=== PATIENT | male | born 1955 | race Caucasian/White ===

== ENCOUNTER 2024-01-20 11:02 | Outpatient (OUT) | payer MEDICARE, OTHER, SELFPAY | END 2024-01-20 11:03 | disposition home or self-care (01) | LOC: LAB 11:07 | PROVIDERS: PCP Internal Medicine; Visit Provider Urology | DX: R97.20 Elevated prostate specific antigen [PSA] (principal) | CPT/HCPCS: 36415; 84153 ==

== ENCOUNTER 2024-07-02 10:45 | Outpatient (OUT) | payer MEDICARE, OTHER, SELFPAY | END 2024-07-02 10:46 | disposition home or self-care (01) | LOC: PST 10:45 | PROVIDERS: PCP Internal Medicine; Visit Provider Urology | DX: Z01.818 Encounter for other preprocedural examination (principal); N40.1 Benign prostatic hyperplasia with lower urinary tract symptoms; R39.89 Other symptoms and signs involving the genitourinary system ==

== ENCOUNTER 2024-07-05 07:39 | Day surgery (SDC) | payer MEDICARE, OTHER, SELFPAY ==
--- OUTSIDE RECORDS SUMMARY | 2024-07-05 07:43 | XMS_ITS | CCD ---
Author Organization [facility] Care Team Providers Care Radiation Protection Specialist Name Role Phone Unavailable Primary Care Provider Donna YEH, DR SWARTZ Primary Care Unavailable GILL, DR SWARTZ Admitting Unavailable GILL, DR SWARTZ Attending Unavailable GILL, DR SWARTZ Consulting Unavailable ZIEBER, DR CADEN Dash Consulting Unavailable GILL, DR SWARTZ Consulting Unavailable GILL, DR SWARTZ Primary Care Unavailable GILL, DR SWARTZ Admitting Unavailable GILL, DR SWARTZ Attending Unavailable DEMI, DR MATT Hayden Consulting Unavailable GILL, DR SWARTZ Primary Care Unavailable GILL, DR SWARTZ Admitting Unavailable GILL, DR SWARTZ Attending Unavailable Gary Yeh MD Primary Care Provider [phone] Gary Yeh MD Primary Care Provider [phone] Gary Yeh MD Primary Care Provider [phone] Luis Buchanan Attending Unavailable Luis Buchanan Admitting Unavailable Gary Yeh Primary Care Unavailable DO Luis Buchanan Attending Provider [phone] TISHA Yeh Primary Care Provider GARY YEH Primary Care Physician [phone] Gary Yeh MD Primary Care Provider [phone] TOM HARRISON Attending Unavailable GARY YEH Primary Care Unavailable TOM HARRISON Referring Unavailable GARY YEH Primary Care Unavailable Bandar ROGERS Attending Unavailable Bandar ROGERS Admitting Unavailable Bandar ROGERS Attending Unavailable REGINA, Bandar Dash Attending Unavailable Bandar ROGERS Attending Unavailable Bandar ROGERS Attending Unavailable Bandar ROGERS Attending Unavailable GARY YEH Referring Unavailable REGINA, Bandar Dash Attending Unavailable REGINA, Bandar Dash Attending Unavailable REGINA, Bandar Dash Attending Unavailable GARY YEH Attending Unavailable GARY YEH Referring Unavailable Allergies Allergy Classification Reported Allergen(s) Allergy Type Date of Onset Reaction(s) Facility (1 source) Penicillins Drug allergy (disorder) 4 [facility] (13 sources) Penicillin G; Translations: [PENICILLIN G POTASSIUM] Drug Allergy 1 Unknown [facility] (8 sources) Penicillin; Translations: [penicillin] Drug Allergy Eruption of skin (disorder) [facility] Medications Current Medications Medication Drug Class(es) Dates Sig (Normalized) Sig (Original) 24 hr alfuzosin hydrochloride 10 mg extended release oral tablet (9 sources) alpha-Adrenergic Chikis Start: 10-27-2023 take 1 tablet by mouth once daily alfuzosin 10 mg ER Tab 10 mg = 1 tab(s), Oral, Daily, # 90 tab(s), Refills(s) 3, Pharmacy: [facility] #[id number], 183, cm, 10/27/23 9:45:00 EST, Height/Length Dosing, 86.5, kg, 10/27/23 9:45:00 EST, Weight Dosing Start Date: 10/27/23 Status: Ordered amLODIPine 5 mg oral tablet (17 sources) Dihydropyridine Calcium Channel Chikis Start: 03-29-2024 take 1 tablet by mouth once daily amLODIPine (NORVASC) 5 mg tablet Indications: Coronary arteriosclerosis take 1 tablet by mouth once daily 90 tablet 3 03/29/2024 Active Start: 06-24-2022 End: 01-02-2024 take 1 tablet by mouth once daily amLODIPine (NORVASC) 5 mg tablet Indications: Coronary arteriosclerosis take 1 tablet by mouth once daily 90 tablet 2 06/11/2023 Active Start: 09-14-2021 End: 12-13-2021 take 1 tablet by mouth once daily amLODIPine (NORVASC) 5 mg tablet Indications: Coronary arteriosclerosis Take 1 tablet (5 mg total) by mouth 1 (one) time each day. 90 each 2 09/14/2021 Active aspirin 81 mg oral capsule (17 sources) Platelet Aggregation Inhibitor, Nonsteroidal Anti-inflammatory Drug Start: 10-27-2023 take 1 mg by mouth every twenty-four hours aspirin 81 mg oral capsule mg cap(s), Oral, q24hr, Refills(s) 0 Start Date: 10/27/23 Status: Ordered take 1 tablet by mouth once clay y aspirin 81 mg EC tablet Take 1 tablet (81 mg total) by mouth 1 (one) time each day. Active atorvastatin 40 mg oral tablet (20 sources) HMG-CoA Reductase Inhibitor Start: 09-19-2023 atorvastatin 40 mg T ab Refills(s) 0 Start Date: 10/27/23 Status: Ordered Start: 09-14-2021 End: 10-30-2022 take 1 tablet by mouth at bedtime atorvastatin (LIPITOR) 40 mg tablet Indications: Coronary arteriosclerosis Take 1 tablet (40 mg total) by mouth at bedtime. 90 each 2 08/01/2022 10/30/2022 Active carvedilol 6.25 mg oral tablet (20 sources) alpha-Adrenergic Chikis, beta-Adrenergic Chikis Start: 08-01-2023 carvedilol 6.25 mg Tab Refills(s) 0 Start Date: 10/27/23 Status: Ordered Start: 10-17-2022 take 1 tablet by tony twice daily at mealtime carvediloL (COREG) 6.25 mg tablet Indications: Coronary arteriosclerosis take 1 tablet by mouth twice a day WITH MEALS 180 tablet 2 10/17/2022 Active Start: 09-14-2021 End: 07-10-2022 take 1 tablet by mouth twice daily at mealtime carvediloL (COREG) 6.25 mg tablet Indications: Coronary arteriosclerosis Take 1 tablet (6.25 mg total) by mouth 2 (two) times a day with meals. 180 each 1 04/11/2022 Active ciprofloxacin 500 mg oral tablet (1 source) Quinolone Antimicrobial Start: 01-21-2024 End: 01-28-2024 Cipro 500 mg Tab 500 mg = 1 tab(s), Oral, BID, start 3 days prior to procedure, X 7 day(s), # 14 tab(s), Refills(s) 0, [id number], 183, cm, 01/21/24 16:36:00 EDT, Height/Length Dosing, 88.5, kg, 01/21/24 16:36:00 EDT, Weight Dosing Start Date: 01/21/24 Stop Date: 01/28/24 Status: Ordered diclofenac sodium 75 mg delayed release oral tablet (3 sources) Nonsteroidal Anti-inflammatory Drug Start: 07-02-2023 diclofenac (VOLTAREN) 75 mg EC tablet 1 tablet (75 mg total). 07/02/2023 Active dutasteride 0.5 mg oral capsule (6 sources) 5-alpha Reductase Inhibitor Start: 10-27-2023 End: 10-21-2024 take 1 capsule by mouth once daily dutasteride 0.5 mg Cap 0.5 mg = 1 cap(s), Oral, Daily, X 90 day(s), # 90 cap(s), Refills(s) 3, Pharmacy: [facility] #[id number], 183, cm, 10/27/23 9:45:00 EST, Height/Length Dosing, 86.5, kg, 10/27/23 9:45:00 EST, Weight Dosing Start Date: 10/27/23 Stop Date: 10/21/24 Status: Ordered Multivitamin preparation (6 sources) Start: 10-27-2023 multivitamin Refill(s) 0 Start Date: 10/27/23 Status: Ordered oxyCODONE hydrochloride 10 mg oral tablet (4 sources) Opioid Agonist Start: 01-21-2024 oxycodone 10 mg oral tablet 10 mg = 1 tab(s), Oral, As Directed, Take prior to TRUS/bx procedure, # 1 tab(s), Refills(s) 0, Pharmacy: [facility] #[id number], 183, cm, 01/21/24 16:36:00 EDT, Height/Length Dosing, 88.5, kg, 01/21/24 16:36:00 EDT, Weight Dosing Start Date: 01/21/24 Status: Ordered tadalafil 5 mg oral tablet (15 sources) Phosphodiesterase 5 Inhibitor Start: 03-28-2021 End: 01-02-2024 tadalafil 5 mg oral tablet Refills(s) 0 Start Date: 10/27/23 Status: Ordered Completed/Discontinued Medications Medication Drug Class(es) Dates Sig (Normalized) Sig (Original) doxycycline hyclate 100 mg oral capsule (2 sources) Tetracycline-clas s Drug Start: 04-28-2024 doxycycline hyclate 100 mg Cap 100 mg = 1 cap(s), Oral, As Directed, Patient to take 1 tab the day before procedure and the 2nd tab the day of procedure once completed, # 2 cap(s), Refills(s) 0, Pharmacy: [facility] #[id number], 183, cm, 04/28/24 10:27:00 EDT, Height/Length Dosing, 88, kg, 04/28/24 10:27:00 EDT, Weight Dosing Start Date: 04/28/24 Status: Ordered Start: 10-27-2023 End: 11-17-2023 take 1 capsule by mouth twice daily doxycycline hyclate 100 mg Cap 100 mg = 1 cap(s), Oral, BID, X 3 week(s), # 42 cap(s), Refills(s) 0, Pharmacy: [facility] #[id number], 183, cm, 10/27/23 9:45:00 EST, Height/Length Dosing, 86.5, kg, 10/27/23 9:45:00 EST, Weight Dosing Start Date: 10/27/23 Stop Date: 11/17/23 Status: Ordered iopamidoL (ISOVUE-370) 370 m g iodine /mL (76 %) injection 100 mL (1 source) Start: 01-26-2024 End: 01-26-2024 100 mL, intravenous, Once in imaging, Starting on Fri01/26/24 at 1249, For 1 dose 1000 ml sodium chloride 9 mg /ml injection (1 source) Start: 01-26-2024 End: 01-26-2024 50 mL, intravenous, Once in imaging, Starting on Fri01/26/24 at 1249, For 1 dose TC-99M sestamibi P radio-iso nadege injection 10.4 millicurie (1 source) Start: 06-04-2022 End: 06-04-2022 TC-99M sestamibi P radio-isotope injection 10.4 millicurie TC-99M sestamibi P radio-iso nadege injection 30.8 millicurie (1 source) Start: 06-04-2022 End: 06-04-2022 TC-99M sestamibi P radio-isotope injection 30.8 millicurie Problems Active Problems Problem Classification Problem Date Documented Da te Episodic/Chronic Acute myocardial infarction (6 sources) Myocardial infarction 10-27-2023 Chronic Aortic; peripheral; and visceral artery aneurysms (4 sources) Aneurysm of aortic arch; 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)] Onset: 04-28-2024 01-02-2024 Chronic Biliary tract disease (17 sources) Biliary calculus; Translations: [Calculus of gallbladder without cholecystitis without obstruction] Onset: 01-16-2021 05-27-2022 Episodic Coronary atherosclerosis and other heart disease (20 sources) Coronary arteriosclerosis; Translations: [Atherosclerotic heart disease of [place] coronary artery without angina pectoris] Onset: 05-27-2022 Chronic Disorders of lipid metabolism (11 sources) Hyperlipidemia; Translations: [Hyperlipidemia, unspecified] Onset: 05-27-2022 05-27-2022 Chronic Essential hypertension (20 sources) Hypertensive disorder; Translations: [Essential (primary) hypertension] Onset: 05-27-2022 Chronic Genitourinary symptoms and ill-defined conditions (14 sources) Urinary tract obstruction; Translations: [Obstructive and reflux uropathy, unspecified] Onset: 12-15-2020 05-27-2022 Episodic Hyperplasia of prostate (20 sources) Lower urinary tract symptoms due to benign prostatic hypertrophy; Translations: [Benign prostatic hyperplasia with lower urinary tract symptoms] Onset: 12-15-2020 05-27-2022 Chronic Inflammatory conditions of male genital organs (8 sources) Prostatitis; Translations: [Inflammatory disease of prostate, unspecified] Onset: 10-27-2023 Episodic Nausea and vomiting (1 source) Bilious vomiting; Translations: [Bilious vomiting] Onset: 02-12-2023 Episodic Osteoarthritis (6 sources) Arthritis 10-27-2023 Chronic Other aftercare (3 sources) Long-term current use of aspirin; Translations: [assisted (current) use of aspirin] Onset: 10-27-2023 Episodic Other and ill-defined heart disease (6 sources) Heart disease 10-27-2023 Chronic Other non-epithelial cancer of skin (6 sources) Malignant neoplasm of skin 10-27-2023 Episodic Other screening for suspected conditions (not mental disorders or infectious disease) (15 sources) Abnormal findings on diagnostic imaging of other specified body structures; Translations: [Radiology result abnormal] Onset: 12-24-2021 Chronic Other screening for suspected conditions (not mental disorders or infectious disease) (11 sources) Encounter for screening for cardiovascular disorders; Translations: [Raised prostate specific antigen] Onset: 01-24-2021 Episodic Residual codes; unclassified (4 sources) Family history of cancer; Translations: [Family history of malignant neoplasm of prostate] Onset: 10-27-2023 Episodic Residual codes; unclassified (6 sources) Family history of prostate cancer 10-27-2023 Episodic Screening and history of mental health and substance abuse codes (13 sources) Personal history of nicotine dependence; Translations: [H/O: Disorder] Onset: 01-17-2021 Episodic Thyroid disorders (11 sources) Thyroid nodule; Translations: [Nontoxic single thyroid nodule] Onset: 05-27-2022 05-27-2022 Chronic Unclassified (6 sources) Asymptomatic microscopic hematuria 10-27-2023 Unclassified (6 sources) Long-term current use of aspirin 10-27-2023 Unclassified (2 sources) Aneurysm of the aortic arch, without rupture; Translations: [Aneurysm of the aortic arch, without rupture] Onset: 01-02-2024 Past or Other Problems Problem Classification Problem Date Documented Da te Episodic/Chronic Hepatitis (11 sources) Viral hepatitis C; Translations: [Unspecified viral hepatitis C without hepatic coma] Onset: 03-05-2021 05-27-2022 Episodic Results Test Name Value Interpretation Reference Range Facility CT LUNG SCREENING LOW DOSEon 06-23-2024 CT LUNG SCREENING LOW DOSE This is a summary report. The complete report is available in the patient's medical record. If you cannot access the medical record, please contact the sending organization for a detailed fax or copy. LOW DOSE CT IMAGING OF THE CHEST WITHOUT INTRAVENOUS CONTRAST MEDIUM. HISTORY: Tobacco use. TECHNICAL FACTORS: Without IV contrast axial helical 1.25mm slice thickness low dose images of the chest performed for lung cancer screening. Findings: No suspicious nodule, mass or parenchymal consolidation. No significant mediastinal or hilar lymphadenopathy. No pleural or pericardial effusion. IMPRESSION: Lung Rads: LUNGRADS 1 - Negative Follow-up Recommendation: LDCT 1 Year Lung Rads categories Category 0: Incomplete Additional Imaging Categories 1 & 2: Negative/Benign Continue annual screening Category 3: Probable benign 6 month f/u CT Chest wo Category 3s: Clinically significant or potentially clinically significant findings Category 4A/B Suspicious 4A: [address] Chest wo; PET/CT when > 8mm solid nodule component exists 4B: Chest w/ contrast; PET/CT and/or biopsy All CT scans at this facility use dose modulation, iterative reconstruction, and/or weight based dosing when appropriate to reduce radiation dose to as low as reasonably achievable. TRANSCRIBED BY: ELECTRONICALLY SIGNED BY: Jono Coburn MD Normal Not Available Ambulatory Visit Summaryon 0 04-28-2024 Ambulatory Visit Summary Ambulatory Visit Summary DANIEL CLEMENTE JR :1955 Visit Date:04/28/2024 Ambulatory Visit Instructions Your Diagnosis Elevated PSA BPH with obstruction/lower urinary tract symptoms Bladder pain Family history of prostate cancer in father Aneurysm Your Care Team Attending Physician - Bandar ROGERS MD Primary Care Physician - GARY YEH MD This Is Your Medications List alfuzosin (alfuzosin 10 mg ER Tab) doxycycline (doxycycline hyclate 100 mg Cap) dutasteride (dutasteride 0.5 mg Cap) Contact prescribing physician if questions or concerns aspirin (aspirin 81 mg oral capsule) atorvastatin (atorvastatin 40 mg Tab) carvedilol (carvedilol 6.25 mg Tab) multivitamin tadalafil (tadalafil 5 mg oral tablet) Procedures Performed Transrectal needle biopsy of prostate (04/07/2024), Procedure on back, Ts - Tonsillectomy. Discharge Vitals Temperature (Temporal Artery) 37 ?C Heart Rate (Peripheral) 75 Respiratory Rate 16 Blood Pressure 138/83 Height 183 cm Height 72 in Weight 88 kg Weight 193.6 lb BMI 26.28 What to do next You Need to Schedule the Following Appointments Follow Up with REGINA SANTANA, Bandar Dash, URL When: Where: [facility] [address] [place] [address]- Medications What How Much When Instructions New doxycycline (doxycycline hyclate 100 mg Cap) 1 Capsules By Mouth As Directed Patient to take 1 tab the day before procedure and the 2nd tab the day of procedure once completed Pickup at [facility] #[id number] Unchanged alfuzosin (alfuzosin 10 mg ER Tab) 1 Tablets By Mouth Every day Unchanged dutasteride (dutasteride 0.5 mg Cap) 1 Capsules By Mouth Every day Duration: 90 Days Unchanged aspirin (aspirin 81 mg oral capsule) By Mouth Every 24 hours Contact prescribing physician if questions or concerns Unchanged atorvastatin (atorvastatin 40 mg Tab) Contact prescribing physician if questions or concerns Unchanged carvedilol (carvedilol 6.25 mg Tab) Contact prescribing physician if questions or concerns Unchanged multivitamin Contact prescribing physician if questions or concerns Unchanged tadalafil (tadalafil 5 mg oral tablet) Contact prescribing physician if questions or concerns Pharmacy Information [facility] #[id number]: [address], [place] [id number] [phone] Allergies penicillin (Rash) Problems Ongoing - Any problem that you are currently receiving treatment for. Aneurysm Arthritis Aspirin long-term use Asymptomatic microscopic hematuria Bladder pain BPH with obstruction/lower urinary tract symptoms Elevated PSA Family history of prostate cancer in father Former smoker Gall stone Heart attack Heart disease Hypertension Prostatitis Skin cancer Patient Survey You may receive a survey via text or e-mail asking about your office visit. Please share your experience with us by completing your survey. We appreciate your feedback and thank you for choosing us for your care. Education Materials Cystoscopy Cystoscopy is a procedure that is used to help diagnose and sometimes treat conditions that affect the lower urinary tract. The lower urinary tract includes the bladder and the urethra. The urethra is the tube that drains urine from the bladder. Cystoscopy is done using a thin, tube-shaped instrument with a light and camera at the end (cystoscope). The cystoscope may be hard or flexible, depending on the goal of the procedure. The cystoscope is inserted through the urethra, into the bladder. Cystoscopy may be recommended if you have: ? Urinary tract infections that keep coming back. ? Blood in the urine (hematuria). ? An inability to control when you urinate (urinary incontinence) or an overactive bladder. ? Unusual cells found in a urine sample. ? A blockage in the urethra, such as a urinary stone. ? Painful urination. ? An abnormality in the bladder found during an intravenous pyelogram (IVP) or CT scan. Cystoscopy may also be done to remove a sample of tissue to be examined under a microscope (biopsy). Tell a health care provider about: ? Any allergies you have. ? All medicines you are taking, including vitamins, herbs, eye drops, creams, and hbto-[id number] medicines. ? Any problems you or family members have had with anesthetic medicines. ? Any blood disorders you have. ? Any surgeries you have had. ? Any medical conditions you have. ? Whether you are or may be . What are the risks? Generally, this is a safe procedure. However, problems may occur, including: ? Infection. ? Bleeding. ? Allergic reactions to medicines. ? Damage to other structures or organs. What happens before the procedure? Medicines Ask your health care provider about: ? Changing or stopping your regular medicines. This is especially important if you are taking diabetes medicines or blood thinners. ? (more content not included)... Normal [facility] Urology Office/Clinic Noteon 04-28-2024 Urology Office/Clinic Note Urology Office/Clinic Note Chief Complaint elevated PSA HPI Staff PO Trus/bx 04/07/24 Dx: BPH w/ obstruction/lower urinary tract sx's, prostatitis, elevated PSA, asymptomatic microscopic hematuria, family hx of prostate cancer (father), former smoker, aspirin long-term use Dutasteride 0.5mg QD, Alfuzosin 10mg QD, Tadalafil 5mg QD Dysuria: no Incomplete bladder emptying: more than half of the time per IPSS Hematuria: no Frequency: about half of the time Urgency: less than half of the time Nocturia: 3-4x Stream: weak about half of the time no straining or intermittency Leaking: no Post void dripping: no Wearing pads/ Depends: no Urge incontinence: no Stress incontinence: no Incontinence without Sensory Awareness: no Abdominal pain: pt states that every now and then he has a little lower abdominal pain when he urinates Flank pain: no Sexual complaints: no History of Present Illness Tests reviewed: reviewed UA, op note, path I have reviewed the previous health record information and history for this patient from Dr. Rogers. I have reviewed and verified the staff HPI to be accurate for this encounter. Review of Systems PHQ Score Initial Depression Screen Score: 0 SCORE ROS - Provider Constitutional: denies weight loss, denies hot flashes. Eyes: denies eye problems. Gastrointestinal: denies nausea, denies vomiting. Cardiovascular: denies chest pain or angina. Integumentary: no dryness Musculoskeletal: denies musculoskeletal symptoms. ENMT: denies otolaryngeal symptoms. Respiratory: no shortness of breath. Heme/Lymph: denies easy bleeding tendency, denies easy bruising tendency. Psychiatric: no confusion, no anxiety. Genitourinary: See HPI. Physical Exam Vitals & Measurements T: 37 ?C(Temporal Artery) HR: 75(Peripheral) RR: 16 BP: 138/83 HT: 72 in HT: 183 cm WT: 88 kg WT: 193.6 lb BMI: 26.28 General Appearance: alert, no distress, well nourished, well developed male. Assessment/Plan 1. Elevated PSA (R97.20: Elevated prostate specific antigen [PSA]) PSA: 12/15/20 - 4.07 02/04/22 - 3.88 07/26/23 - 4.56 10/27/23 - started Dutasteride 01/20/24 - 2.70 (5.40 Dutasteride) S/p TRUS/bx 04/07/24 - Neg. Prostate volume 30 cc. The pathology report was reviewed with the patient in detail today. There is no evidence of malignancy and no further evaluation of the tissue removed is planned. All questions were answered and the report discussed in terms that the patient could understand. 2. BPH with obstruction/lower urinary tract symptoms (N40.1: Benign prostatic hyperplasia with lower urinary tract symptoms) Failed Flomax and lose-dose Tadalafil due to minimal sx improvement. UA shows trace leuks. Taking Dutasteride 0.5 mg qd and Alfuzosin 10 mg qd. Cont both wo changes. IPSS 15. Discussed cysto to eval NUÑEZ for procedure candidacy. Educated pt on bladder damage due to chronic NUÑEZ. -Will schedule cysto. The risks and benefits for cystoscopy have been discussed. The risks include bleeding, infection, and irritation of the bladder and urinary channel, among others. The patient, after being informed of procedural details and after questions have been answered, wishes to proceed. Full informed consent has been obtained. Will order Local anesthesia. Prophylactic abx sent to [facility]. 3. Bladder pain (R39.89: Other symptoms and signs involving the genitourinary system) Intermittent bladder pain with urination ongoing for a long time. Especially when he doesn't drink enough water. Happening more frequently. Occasional fatigue which would be from dehydration. -Dramatically increase fluid intake. Goal ten 16 oz bottles. This should lessen pain. 4. Family history of prostate cancer in father (Z80.42: Family history of malignant neoplasm of prostate) Father and uncle. [1] 5. Aneurysm (I72.9: Aneurysm of unspecified site) Pt has small aneurysm that has been monitored for years. Per comic book writer, would prefer that he does not take quinolones if another class can be prescribed instead. Follow-up With When Contact Information REGINA SANTANA, Bandar Dash, URL [facility] [address], [place] [address]- Additional Instructions: schedule cysto Patient Education Cystoscopy I, Brigitte Mixon, personally scribed for Dr. Rogers on 04/28/2024 10:47:55. . Documentation recorded by the scribe, Brigitte Mixon, accurately reflects the services(s) I performed and decisions made by me. Authenticated by Dr. Rogers on 04/28/2024 10:55:19. Problem List/Past Medical History Ongoing Arthritis Aspirin long-term use Asymptomatic microscopic hematuria Bladder pain BPH with obstruction/lower urinary tract symptoms Elevated PSA Family history of prostate cancer in father Former smoker Gall stone Heart attack Heart disease Hypertension Prostatitis Skin cancer Historical No qualifying data Procedure/Surgical Hist (more content not included)... Normal [facility] Comment on above: Result Comment: Elec tronically Signed By: Bandar ROGERS MD R\.br\Date and Time Signed: 04/28/24 10:55 EDT\.br\Electronically Co-Signed By: Brigitte Mixon\.br\Date and Time Co-Signed: 04/28/24 10:52 EDT Prostate Histology ([facility]) on 04-20-2024 Prostate Histology Diagnosis Info Invalid Interpretation Code [facility] Comment on above: Result Comment: A:Pr ostate,Left Lateral Base:Needle Biopsy Interpretation - - Benign prostatic tissue. MicroScopic Description - B:Prostate,Left Lateral Mid:Needle Biopsy Interpretation - - Benign prostatic tissue. MicroScopic Description - Atrophy present. See Comment. C:Prostate,Left Lateral [place]:Needle Biopsy Interpretation - - Benign prostatic tissue. MicroScopic Description - Atrophy is present. D:Prostate,Left Base:Needle Biopsy Interpretation - - Benign prostatic tissue. MicroScopic Description - See Comment. E:Prostate,Left Mid:Needle Biopsy Interpretation - - Benign prostatic tissue. MicroScopic Description - See Comment. F:Prostate,Left [place]:Needle Biopsy Interpretation - - Benign prostatic tissue. MicroScopic Description - G:Prostate,Right Base:Needle Biopsy Interpretation - - Benign prostatic tissue. MicroScopic Description - H:Prostate,Right Mid:Needle Biopsy Interpretation - - Benign prostatic tissue. MicroScopic Description - See Comment. I:Prostate,Right [place]:Needle Biopsy Interpretation - - Benign prostatic tissue. MicroScopic Description - J:Prostate,Right Lateral Base:Needle Biopsy Interpretation - - Benign prostatic tissue. MicroScopic Description - See Comment. K:Prostate,Right Lateral Mid:Needle Biopsy Interpretation - - Benign prostatic tissue. MicroScopic Description - L:Prostate,Right Lateral [place]:Needle Biopsy Interpretation - - Benign prostatic tissue. MicroScopic Description - Gross Description Site ID:A color henderson-white fixative Formalin cores 1 units mm Site ID:B color henderson-white fixative Formalin cores 1 units mm Site ID:C color henderson-white fixative Formalin cores 1 units mm part stringy Site ID:D color henderson-white fixative Formalin cores 1 units mm Site ID:E color henderson-white fixative Formalin cores 1 units mm Site ID:F color henderson-white fixative Formalin cores 1 units mm Site ID:G color henderson-white fixative Formalin cores 1 units mm Site ID:H color henderson-white fixative Formalin cores 1 units mm Site ID:I color henderson-white fixative Formalin cores 1 units mm Site ID:J color henderson-white fixative Formalin cores 1 units mm Site ID:K color henderson-white fixative Formalin cores 1 units mm Site ID:L color henderson-white fixative Formalin cores 1 units mm Clinical History - psa date- 01/20/2024 PIN-4 immunohistochemical stain was performed on tissue blocks B , D , E , H and J with appropriate staining control and supports no evidence of prostatic adenocarcinoma identified. Electronically signed by : on: 04/20/2024 16:35:52 Performed By: #### 1 [id number] #### [facility] [address] [place] [address] Ambulatory Visit Summaryon 0 04-07-2024 Ambulatory Visit Summary DANIEL CLEMENTE JR :1955 Visit Date:04/07/2024 Ambulatory Visit Instructions Your Diagnosis Elevated PSA BPH with obstruction/lower urinary tract symptoms Family history of prostate cancer in father Former smoker Aspirin long-term use Your Care Team Attending Physician - REGINA SANTANA, Bandar Dash Primary Care Physician - GILL SANTANA, GARY Jacob This Is Your Medications List alfuzosin (alfuzosin 10 mg ER Tab) dutasteride (dutasteride 0.5 mg Cap) oxycodone (oxycodone 10 mg oral tablet) Contact prescribing physician if questions or concerns aspirin (aspirin 81 mg oral capsule) atorvastatin (atorvastatin 40 mg Tab) carvedilol (carvedilol 6.25 mg Tab) multivitamin tadalafil (tadalafil 5 mg oral tablet) Procedures Performed Transrectal needle biopsy of prostate (04/07/2024), Procedure on back, Ts - Tonsillectomy. Discharge Vitals Temperature (Temporal Artery) 37 ?C Heart Rate (Peripheral) 65 Respiratory Rate 16 Blood Pressure 134/73 Height 183 cm Height 72 in Weight 88 kg Weight 193.6 lb BMI 26.28 What to do next Scheduled Follow-Up Appointments Friday 9:15 AM EDT With: Bandar ROGERS MD Where: [facility] Patient Educationon 04-07-20 Patient Education Oncology Transrectal Ultrasound-Guided Prostate Biopsy, Care After The following information offers guidance on how to care for yourself after your procedure. Your health care provider may also give you more specific instructions. If you have problems or questions, contact your health care provider. What can I expect after the procedure? After the procedure, it is common to have: ? Pain and discomfort near your rectum, especially while sitting. ? [place]-colored urine due to small amounts of blood in your urine. ? A burning feeling while urinating. ? Blood in your stool (feces) or bleeding from your rectum. ? Blood in your semen. Follow these instructions at home: Medicines ? Take dfff-jwn-ywtbhay and prescription medicines only as told by your health care provider. ? If you were given a sedative during your procedure, it can affect you for several hours. Do not drive or operate machinery until your health care provider says that it is safe. ? If you were prescribed an antibiotic medicine, take it as told by your health care provider. Do not stop using the antibiotic even if you start to feel better. Activity ? Return to your normal activities as told by your health care provider. Ask your health care provider what activities are safe for you. ? Ask your health care provider when it is okay for you to resume sexual activity. ? You may have to avoid lifting. Ask your health care provider how much you can safely lift. General instructions ? Drink enough fluid to keep your urine pale yellow. ? Watch your urine, stool, and semen for new or increased bleeding. ? Keep all follow-up visits. This is important. Contact a health care provider if: ? You have any of the following: ? Blood clots in your urine or stool. ? Blood in your urine more than 2 weeks after the procedure. ? Blood in your semen more than 2 months after the procedure. ? New or increased bleeding in your urine, stool, or semen. ? Severe pain in your abdomen. ? Your urine smells bad or unusual. ? You have trouble urinating. ? Your lower abdomen feels firm. ? You have problems getting an erection. ? You have nausea or you vomit. Get help right away if: ? You have a fever or chills. This could be a sign of infection. ? You have bright red urine. ? You have severe pain that does not get better with medicine. ? You cannot urinate. Summary ? After this procedure, it is common to have pain and discomfort around your rectum, especially while sitting. ? You may have blood in your urine and stool after the procedure. ? It is common to have blood in your semen after this procedure. ? Get help right away if you have a fever or chills. This could be a sign of infection. This information is not intended to replace advice given to you by your health care provider. Make sure you discuss any questions you have with your health care provider. Document Revised: 03/25/2022 Document Reviewed: 03/25/2022 [employer] Patient Education ? 2022 [employer]. Normal [facility] Prostate Histology ([facility]) on 04-07-2024 PH Method of Extraction Needle Biopsy Normal [facility] Comment on above: Performed By: #### 1 [id number] #### [facility] [address] [place] [address] PH Number of Jars 2 Invalid Interpretation Code [facility] Comment on above: Performed By: #### 1 [id number] #### [facility] [address] [place] [address] PH Specimen 1 R Base Prostate Normal [facility] Comment on above: Performed By: #### 1 [id number] #### [facility] [address] [place] [address] PH Specimen 10 L Lat Mid [facility]st [facility] Comment on above: Performed By: #### 1 [id number] #### [facility] [address] [place] [address] PH Specimen 11 L Apx Prostate Normal [facility] Comment on above: Performed By: #### 1 [id number] #### [facility] [address] [place] [address] PH Specimen 12 L Lat Apx Prost Normal [facility] Comment on above: Performed By: #### 1 [id number] #### [facility] [address] [place] [address] PH Specimen 2 R Lat Bse Prost Normal [facility] Comment on above: Performed By: #### 1 [id number] #### [facility] [address] [place] [address] PH Specimen 3 R Mid Prostate Normal [facility] Comment on above: Performed By: #### 1 [id number] #### [facility] [address] [place] [address] PH Specimen 4 R Lat Mid Prost Normal [facility] Comment on above: Performed By: #### 1 [id number] #### [facility] [address] [place] [address] PH Specimen 5 R Apx Prostate Normal [facility] Comment on above: Performed By: #### 1 [id number] #### [facility] [address] [place] [address] PH Specimen 6 R Lat Apx Prost Normal [facility] Comment on above: Performed By: #### 1 [id number] #### [facility] [address] [place] [address] PH Specimen 7 L Base Prostate Normal [facility] Comment on above: Performed By: #### 1 [id number] #### [facility] [address] [place] [address] PH Specimen 8 L Lat Bse Prost Normal [facility] Comment on above: Performed By: #### 1 [id number] #### [facility] [address] [place] [address] PH Specimen 9 L Mid Prostate Normal [facility] Comment on above: Performed By: #### 1 [id number] #### [facility] [address] [place] [address] PH Type of Service Technical Only Normal [facility] Comment on above: Performed By: #### 1 [id number] #### [facility] [address] [place] [address] Urology Office/Clinic Noteon 04-07-2024 Urology Office/Clinic Note Chief Complaint elevated PSA and BPH with obstrution/LUTS HPI Staff TRUS/bx. Abx taken prior. History of Present Illness Tests reviewed: reviewed I have reviewed the previous health record information and history for this patient from Dr. Rogers. I have reviewed and verified the staff HPI to be accurate for this encounter. There have been no associated fever, chills, flank pain, or blood in the urine. Denies any urinary infections since last encounter. Review of Systems PHQ Score Initial Depression Screen Score: 0 SCORE ROS - Provider Constitutional: denies weight loss, denies hot flashes. Eyes: denies eye problems. Gastrointestinal: denies nausea, denies vomiting. Cardiovascular: denies chest pain or angina. Integumentary: no dryness Musculoskeletal: denies musculoskeletal symptoms. ENMT: denies otolaryngeal symptoms. Respiratory: no shortness of breath. Heme/Lymph: denies easy bleeding tendency, denies easy bruising tendency. Psychiatric: no confusion, no anxiety. Genitourinary: See HPI. Physical Exam Vitals & Measurements T: 37 ?C(Temporal Artery) HR: 65(Peripheral) RR: 16 BP: 134/73 HT: 72 in HT: 183 cm WT: 88 kg WT: 193.6 lb BMI: 26.28 General Appearance: alert, no distress, well nourished, well developed male. Genitourinary: normal scrotum, normal testes, normal urethra, normal epididymis, normal vas deferens/spermatic cord. Flank Pain: none. Bladder: nonpalpable. Procedure Operative Information Anesthesia Type: Local Procedure: Transrectal Ultrasound and Transrectal Ultrasound-Guided Biopsy of the Prostate Complications: None Surgical risks, benefits, details of the procedure have been explained to the patient. Full informed consent has been obtained. Intraoperative Information Prepped: The patient was brought into the office suite and placed in the modified left lateral Dahl position. The patient was draped appropriately. 80 mg Gentamicin IM injection administered. Procedure: Then 2% Xylocaine jelly was used for intrarectal anesthesia. After waiting several minutes, a well lubricated ultrasound probe was introduced per rectum. The prostate was carefully evaluated in the AP and Sagittal views. Volume: 29.7 Specimens Removed: A total of 12 biopsies were taken, 6 from each side, and sent to pathology. Postoperative Information The patient tolerated the procedure well and was discharged home in satisfactory condition. The patient was instructed to finish antibiotics, avoid strenuous activity, and go to the emergency room for gross bleeding, fever, or chills. Radiology Report Procedure: Transrectal US guided needle biopsy of the prostate Narrative: Ultrasound probe is introduced and performed in the longitudinal and transverse plains. The prostatic capsule and seminal vesicles appear to be within normal limits. Ultrasound guidance was then utilized to obtain 12 biopsies. These were sent to pathology for evaluation. The gland measures: 47.4 MM Length, 44.1 MM Width, 27.2 MM Depth, with a calculated volume of 29.7 CC. The peripheral zone demonstrates: No abnormalities Rest of the prostate demonstrates: No abnormalities Assessment/Plan 1. Elevated PSA (R97.20: Elevated prostate specific antigen [PSA]) PSA 12/15/20 - 4.07 02/04/22 - 3.88 07/26/23 - 4.56 10/27/23 - started Dutasteride 01/20/24 - 2.70 (5.40 Dutasteride) PSA continues to increase despite treatment for prostatitis previously. [1] KARY not done due to prostatitis sxs at prior OVs. He tolerated the biopsy well. He should engage in no strenuous activity for 48 hours. Push fluids to keep hydrated and finish the prescribed antibiotics. He knows to go to the ER for fever, chills, inability to void, or severe bleeding. He verbalized understanding these instructions. Follow up 04/23/24 to rev path or sooner if needed. Pt understands and agrees with plan. 2. BPH with obstruction/lower urinary tract symptoms (N40.1: Benign prostatic hyperplasia with lower urinary tract symptoms) Took Tamsulosin per PCP but stopped due to minimal sx improvement. Was then given Tadalafil 5mg qd and is unsure if this improved his sxs. [1] Taking Dutasteride 0.5 mg qd and Alfuzosin 10 mg qd. 3. Family history of prostate cancer in father (Z80.42: Family history of malignant neoplasm of prostate) Father and uncle. 4. Former smoker (Z87.891: Personal history of nicotine dependence) Smoked cigarettes 1975 - 2006. [1] Increased risk for bladder ca. 5. Aspirin long-term use (Z79.82: assisted (current) use of aspirin) Has heart stent. [2] Elevated periop complications. Was to stop his aspirin on Friday but forgot and stopped it on . Follow-up With When Contact Information Bandar ROGERS MD, URL [facility] [address], [place] [address]- Additional Instructions: Follow up 04/23/24 to rev path Patient Education Transrectal Ultrasound-Guided Prostate Biopsy, Care After IBrigitte, personally (more content not included)... Normal [facility] Comment on above: Result Comment: Elec tronically Signed By: Bandar ROGERS MD\.br\Date and Time Signed: 04/07/24 08:25 EDT\.br\Electronically Co-Signed By: Brigitte Mixon\.br\Date and Time Co-Signed: 04/07/24 08:[address] ANGIO CHEST WO AND/OR W C [facility] 01-26-2024 CT ANGIO CHEST WO AND/OR W CONTRAST This is a summary report. The complete report is available in the patient's medical record. If you cannot access the medical record, please contact the sending organization for a detailed fax or copy. Addendum: Nodularity within the right and left adrenal glands are seen. The nodule within the right adrenal gland measures 1.3 cm and within the left 1.9 cm. No precontrast imaging was performed. If stability greater than one year can be documented with comparison with previous scans, nodules are likely benign and no additional evaluation is needed. If patient has no history of malignancy recommend follow-up in one year. If patient has history of malignancy further evaluation with adrenal protocol with CT or MRI is recommended. -------- ADDENDUM -------- Dictated By: Kemal Lorenzana Dictated Date: 01/28/2024 14:55 Assigned Physician: Kemal Lorenzana Reviewed and Electronically Signed By: Kemal Lorenzana Signed Date: 01/28/2024 15:16 Workstation ID: [id number] Transcribed By: Self Edit Transcribed Date: 01/28/2024 14:55 EXAMINATION TYPE: CT ANGIO CHEST WO AND/OR W CONTRAST and 3-D Reformation images DATE OF EXAM : 01/26/2024 12:49 PM HISTORY: Thoracic aortic aneurysm (TAA), follow up, COMPARISON: NONE FINDINGS: Good contrast opacification of the thoracic aorta and their branches are seen. The ascending aorta measures roughly 4 cm in maximal diameter at the level of the right main pulmonary artery (axial image 44 of series 8). Coronary artery calcifications are identified. The sinus of Valsalva measures 3.5 cm (coronal reformation image 48 of series 10). No intimal irregularities suggest dissection is identified. The great vessels arise off the aortic arch fashion. Descending thoracic aorta is within normal limits of size measuring 27 mm in diameter. No hilar or mediastinal masses or adenopathy is initiated. The lung parenchyma is unremarkable. Limited view of the upper abdominal structures demonstrates nodularity within the left adrenal gland measuring 18 mm size and a nodule within the right adrenal gland measuring 15 mm. Calcified gallstone is seen. The gallbladder is not distended with no evidence of gallbladder wall thickening or pericystic fluid collection. IMPRESSION: 1. No comparison films are available. 2. The ascending aorta measures 4 cm in maximal diameter with no CTA evidence for dissection. Coronary artery calcifications are noted. No CTA evidence for dissection. 3. Nodularity of the right and left adrenal gland is identified. This is indeterminate in nature and comparison with old films would be helpful to check for stability. 4. Calcified gallstones with no CTA evidence for cholecystitis. -------- FINAL REPORT -------- Dictated By: Kemal Lorenzana Dictated Date: 01/26/2024 15:25 Assigned Physician: Kemal Lorenzana Reviewed and Electronically Signed By: Kemal Lorenzana Signed Date: 01/26/2024 15:34 Workstation ID: [id number] Transcribed By: Self Edit Transcribed Date: 01/26/2024 15:25 Normal [facility] CT Angio Chest wo and/or w C [facility] 01-26-2024 1. No comparison films are available. 2. The ascending aorta measures 4 cm in maximal diameter with no CTA evidence for dissection. Coronary artery calcifications are noted. No CTA evidence for dissection. 3. Nodularity of the right and left adrenal gland is identified. This is indeterminate in nature and comparison with old films would be helpful to check for stability. 4. Calcified gallstones with no CTA evidence for cholecystitis. -------- FINAL REPORT -------- Dictated By: Kemal Lorenzana Dictated Date: 01/26/2024 15:25 Assigned Physician: Kemal Lorenzana Reviewed and Electronically Signed By: Kemal Lorenzana Signed Date: 01/26/2024 15:34 Workstation ID: [id number] Transcribed By: Self Edit Transcribed Date: 01/26/2024 15:25 [place] EXAMINATION TYPE: CT ANGIO CHEST WO AND/OR W CONTRAST and 3-D Reformation images DATE OF EXAM : 01/26/2024 12:49 PM HISTORY: Thoracic aortic aneurysm (TAA), follow up, COMPARISON: NONE FINDINGS: Good contrast opacification of the thoracic aorta and their branches are seen. The ascending aorta measures roughly 4 cm in maximal diameter at the level of the right main pulmonary artery (axial image 44 of series 8). Coronary artery calcifications are identified. The sinus of Valsalva measures 3.5 cm (coronal reformation image 48 of series 10). No intimal irregularities suggest dissection is identified. The great vessels arise off the aortic arch fashion. Descending thoracic aorta is within normal limits of size measuring 27 mm in diameter. No hilar or mediastinal masses or adenopathy is initiated. The lung parenchyma is unremarkable. Limited view of the upper abdominal structures demonstrates nodularity within the left adrenal gland measuring 18 mm size and a nodule within the right adrenal gland measuring 15 mm. Calcified gallstone is seen. The gallbladder is not distended with no evidence of gallbladder wall thickening or pericystic fluid collection. NJVCE Kemal Lorenzana MD - 01/26/2024 EXAMINATION TYPE: CT ANGIO CHEST WO AND/OR W CONTRAST and 3-D Reformation images DATE OF EXAM : 01/26/2024 12:49 PM HISTORY: Thoracic aortic aneurysm (TAA), follow up, COMPARISON: NONE FINDINGS: Good contrast opacification of the thoracic aorta and their branches are seen. The ascending aorta measures roughly 4 cm in maximal diameter at the level of the right main pulmonary artery (axial image 44 of series 8). Coronary artery calcifications are identified. The sinus of Valsalva measures 3.5 cm (coronal reformation image 48 of series 10). No intimal irregularities suggest dissection is identified. The great vessels arise off the aortic arch fashion. Descending thoracic aorta is within normal limits of size measuring 27 mm in diameter. No hilar or mediastinal masses or adenopathy is initiated. The lung parenchyma is unremarkable. Limited view of the upper abdominal structures demonstrates nodularity within the left adrenal gland measuring 18 mm size and a nodule within the right adrenal gland measuring 15 mm. Calcified gallstone is seen. The gallbladder is not distended with no evidence of gallbladder wall thickening or pericystic fluid collection. IMPRESSION: 1. No comparison films are available. 2. The ascending aorta measures 4 cm in maximal diameter with no CTA evidence for dissection. Coronary artery calcifications are noted. No CTA evidence for dissection. 3. Nodularity of the right and left adrenal gland is identified. This is indeterminate in nature and comparison with old films would be helpful to check for stability. 4. Calcified gallstones with no CTA evidence for cholecystitis. -------- FINAL REPORT -------- Dictated By: Kemal Lorenzana Dictated Date: 01/26/2024 15:25 Assigned Physician: Kemal Lorenzana Reviewed and Electronically Signed By: Kemal Lorenzana Signed Date: 01/26/2024 15:34 Workstation ID: [id number] Transcribed By: Self Edit Transcribed Date: 01/26/2024 15:25 [facility] Creatinine (Bld) [Moles/Vol] on 01-26-2024 Creatinine [Mass/Vol] 0.9 mg/dL Normal 0.6-1.3 [facility] Comment on above: Performed By: #### 5 [id number] #### [facility] [address] [place] [address] GFR/1.73 sq M.predicted among non-blacks MDRD (S/P/Bld) [Vol rate/Area] 87 mL/min/{1.73_m2} Normal >=60 [facility] Comment on above: Performed By: #### 5 [id number] #### [facility] [address] [place] [address] Creatinine [Mass/Vol] 0.9 mg/dL 0.6 - 1.3 mg/dL [employer] GFR/1.73 sq M.predicted among non-blacks MDRD (S/P/Bld) [Vol rate/Area] 87 mL/min/{1.73_m2} - PINF [facility] Interpretation and review of laboratory results Normal [employer] Ambulatory Visit Summaryon 0 01-21-2024 Ambulatory Visit Summary DANIEL CLEMENTE JR :1955 Visit Date:01/21/2024 Ambulatory Visit Instructions Your Diagnosis Elevated PSA BPH with obstruction/lower urinary tract symptoms Prostatitis Family history of prostate cancer in father Former smoker Aspirin long-term use Your Care Team Attending Physician - REGINA SANTANA, Bandar Dash Primary Care Physician - GARY YEH MD This Is Your Medications List ciprofloxacin (Cipro 500 mg Tab) oxycodone (oxycodone 10 mg oral tablet) Contact prescribing physician if questions or concerns alfuzosin (alfuzosin 10 mg ER Tab) aspirin (aspirin 81 mg oral capsule) atorvastatin (atorvastatin 40 mg Tab) carvedilol (carvedilol 6.25 mg Tab) dutasteride (dutasteride 0.5 mg Cap) multivitamin tadalafil (tadalafil 5 mg oral tablet) Procedures Performed Procedure on back, Ts - Tonsillectomy. Discharge Vitals Temperature (Oral) 36.8 ?C Heart Rate (Peripheral) 65 Respiratory Rate 16 Blood Pressure 132/84 Height 183 cm Height 72 in Weight 88.5 kg Weight 194.7 lb BMI 26.43 What to do next Scheduled Follow-Up Appointments Friday 3:00 PM EDT With: REGINA SANTANA, Bandar Dash Where: [facility] [place] Normal [facility] 01-21-2024 Lab Reports [id number] [facility] Patient Educationon 01-21-20 Patient Education Oncology Transrectal Ultrasound-Guided Prostate Biopsy, Care After The following information offers guidance on how to care for yourself after your procedure. Your health care provider may also give you more specific instructions. If you have problems or questions, contact your health care provider. What can I expect after the procedure? After the procedure, it is common to have: ? Pain and discomfort near your rectum, especially while sitting. ? [place]-colored urine due to small amounts of blood in your urine. ? A burning feeling while urinating. ? Blood in your stool (feces) or bleeding from your rectum. ? Blood in your semen. Follow these instructions at home: Medicines ? Take sxqt-hub-zwolane and prescription medicines only as told by your health care provider. ? If you were given a sedative during your procedure, it can affect you for several hours. Do not drive or operate machinery until your health care provider says that it is safe. ? If you were prescribed an antibiotic medicine, take it as told by your health care provider. Do not stop using the antibiotic even if you start to feel better. Activity ? Return to your normal activities as told by your health care provider. Ask your health care provider what activities are safe for you. ? Ask your health care provider when it is okay for you to resume sexual activity. ? You may have to avoid lifting. Ask your health care provider how much you can safely lift. General instructions ? Drink enough fluid to keep your urine pale yellow. ? Watch your urine, stool, and semen for new or increased bleeding. ? Keep all follow-up visits. This is important. Contact a health care provider if: ? You have any of the following: ? Blood clots in your urine or stool. ? Blood in your urine more than 2 weeks after the procedure. ? Blood in your semen more than 2 months after the procedure. ? New or increased bleeding in your urine, stool, or semen. ? Severe pain in your abdomen. ? Your urine smells bad or unusual. ? You have trouble urinating. ? Your lower abdomen feels firm. ? You have problems getting an erection. ? You have nausea or you vomit. Get help right away if: ? You have a fever or chills. This could be a sign of infection. ? You have bright red urine. ? You have severe pain that does not get better with medicine. ? You cannot urinate. Summary ? After this procedure, it is common to have pain and discomfort around your rectum, especially while sitting. ? You may have blood in your urine and stool after the procedure. ? It is common to have blood in your semen after this procedure. ? Get help right away if you have a fever or chills. This could be a sign of infection. This information is not intended to replace advice given to you by your health care provider. Make sure you discuss any questions you have with your health care provider. Document Revised: 03/25/2022 Document Reviewed: 03/25/2022 [employer] Patient Education ? 2022 [employer] Transrectal Ultrasound-Guided Prostate Biopsy A transrectal ultrasound-guided prostate biopsy is a procedure to remove samples of prostate tissue for testing. The prostate is a walnut-sized gland that is located below the bladder and in front of the rectum. During this procedure, a small device (probe) is lubricated and put inside the rectum. The probe sends out sound waves that make a picture of the prostate and surrounding tissues (transrectal ultrasound). The images are used to help guide the process of removing the samples. The samples are taken to a lab to be checked for prostate cancer. This procedure is usually done to evaluate the prostate gland of men who have raised (elevated) levels of prostate-specific antigen (PSA), which can be a sign of prostate cancer or prostate enlargement related to aging (benign prostatic hyperplasia, or BPH). Tell a health care provider about: ? Any allergies you have. ? All medicines you are taking, including vitamins, herbs, eye drops, creams, and ahpm-djd-ykuezow medicines. ? Any problems you or family members have had with anesthetic medicines. ? Any bleeding problems you have. ? Any surgeries you have had. ? Any medical conditions you have. ? Any prostate infections you have had. What are the risks? Generally, this is a safe procedure. However, problems may occur, including: ? Prostate infection. ? Bleeding from the rectum. ? Blood in the urine. ? Allergic reactions to medicines. ? Damage to surrounding structures such as blood vessels, organs, or muscles. ? Difficulty passing urine. ? Nerve damage. This is usually temporary. What happens before the procedure? Medicines Ask your health care provider about: ? Changing or stopping your regular medicines. This is especially important if you are taking diabetes medicines or blood thinners. ? Taking medicines such as aspirin (more content not included)... Normal [facility] Urology Office/Clinic Noteon 01-21-2024 Urology Office/Clinic Note Chief Complaint 3 mo f/u w/ PSA HPI Staff 3 mo f/u W/ PSA Dx: BPH w/ obstruction/lower urinary tract sx's, prostatitis, elevated PSA, asymptomatic microscopic hematuria, family hx of prostate cancer (father), former smoker, aspirin long-term use Dutasteride 0.5mg QD, Alfuzosin 10mg QD, Tadalafil 5mg QD Spoke with patient and having PSA drawn 01/19 @ [facility] lab Dysuria: denies Incomplete bladder emptying: denies Hematuria: denies Frequency: yes Urgency: occasionally Nocturia: 3x a night Stream: okay stream Leaking: denies Post void dripping: denies Wearing pads/ Depends: denies Urge incontinence: denies Stress incontinence: denies Incontinence without Sensory Awareness: denies Abdominal pain: denies Flank pain: denies Sexual complaints: _ History of Present Illness Tests reviewed: reviewed UA, PSA I have reviewed the previous health record information and history for this patient from Dr. Rogers. I have reviewed and verified the staff HPI to be accurate for this encounter. Review of Systems PHQ Score Initial Depression Screen Score: 0 SCORE ROS - Provider Constitutional: denies weight loss, denies hot flashes. Eyes: denies eye problems. Gastrointestinal: denies nausea, denies vomiting. Cardiovascular: denies chest pain or angina. Integumentary: no dryness Musculoskeletal: denies musculoskeletal symptoms. ENMT: denies otolaryngeal symptoms. Respiratory: no shortness of breath. Heme/Lymph: denies easy bleeding tendency, denies easy bruising tendency. Psychiatric: no confusion, no anxiety. Genitourinary: See HPI. Physical Exam Vitals & Measurements T: 36.8 ?C(Oral) HR: 65(Peripheral) RR: 16 BP: 132/84 HT: 72 in HT: 183 cm WT: 88.5 kg WT: 194.7 lb BMI: 26.43 General Appearance: alert, no distress, well nourished, well developed male. Genitourinary: normal scrotum, normal testes, normal urethra, normal epididymis, normal vas deferens/spermatic cord. Flank Pain: none. Bladder: nonpalpable. Assessment/Plan 1. Elevated PSA (R97.20: Elevated prostate specific antigen [PSA]) PSA 12/15/20 - 4.07 02/04/22 - 3.88 07/26/23 - 4.56 01/20/24 - 2.70 (5.40 Dutasteride) PSA continues to increase despite treatment for prostatitis previously. Advised pt next step would be a TRUS/bx. Discussed procedural details and risks/benefits. States he was attempted to be put under anesthesia when he was having a heart attack but still had full awareness until he was given nitro. Advised pt oxycodone could be given for pt to take prior to biopsy. Pt is agreeable. -Will schedule TRUS of Prostate with Biopsy. The procedural risks, benefits, details, and treatment alternatives have been discussed with the patient. These include minimal to severe bleeding, infection, blood in the semen, inability to urinate, and severe infection requiring hospitalization and IV antibiotics, among others. Full informed consent has been obtained. Will order Local anesthesia. -Pt to take oxycodone prior to TRUS/bx per his request. 2. BPH with obstruction/lower urinary tract symptoms (N40.1: Benign prostatic hyperplasia with lower urinary tract symptoms) Took Tamsulosin per PCP but stopped due to minimal sx improvement. Was then given Tadalafil 5mg qd and is unsure if this improved his sxs. PVR 10/27/23 - 89 mL. Started on Dutasteride 0.5mg qd and Alfuzosin 10mg qd at prior OV. States urgency has improved. Unsure if frequency has improved. Good stream. Feels he empties completely. -Cont Dutasteride and Alfuzosin as above 3. Prostatitis (N41.9: Inflammatory disease of prostate, unspecified) Pt was having suprapubic pain and burning with urination at prior OV. Tx'd w/ doxycycline 100mg bid x3wks. No longer reports pain/burning with urination or suprapubic pain. UA today negative for blood and infection. 4. Family history of prostate cancer in father (Z80.42: Family history of malignant neoplasm of prostate) Father passed from [place]. [1] Also reports his uncle had prostate cancer. 5. Former smoker (Z87.891: Personal history of nicotine dependence) Smoked cigarettes 1975 - 2006. Risk factor for urothelial ca. [2] 6. 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 [3] Advised pt to stop aspirin a few days prior to TRUS/bx. Risks discussed. Follow-up With When Contact Information REGINA SANTANA, Bandar Dash, URL [facility] [address] [place] [address]- [phone] Additional Instructions: sched TRUS/bx Patient Education Transrectal Ultrasound-Guided Prostate Biopsy, Care After Transrectal Ultrasound-Guided Prostate Biopsy IGretel, personally scribed for Dr. Rogers on 01/21/2024 17:33:57. . Documentation recorded by the scribe, Gretel Yeh, accurately reflects the services(s) I performed and decisions made by me. Authenticated by Dr. Rogers on 01/21/2024 17:36:01. Problem List/Past Medical H (more content not included)... [facility] Comment on above: Result Comment: Elec tronically Signed By: Bandar ROGERS MD\.br\Date and Time Signed: 01/21/24 17:36 EDT\.br\Electronically Co-Signed By: Gretel Yeh\.br\Date and Time Co-Signed: 01/21/24 17:34 EDT ECG 12 lead (MIDMARK)on 12-12 [employer] 10-28-2023 Forms [id number] 0TIFF [facility] Physician Referralon 024 Physician Referral [id number] 02 [id number]. 00TIFF [facility] Ambulatory Visit Summaryon 0 10-27-2023 Ambulatory Visit Summary DANIEL CLEMENTE JR :1955 Visit Date:10/27/2023 Ambulatory Visit Instructions Your Diagnosis BPH with obstruction/lower urinary tract symptoms Prostatitis Elevated PSA Asymptomatic microscopic hematuria Family history of prostate cancer in father Former smoker Aspirin long-term use Tests Performed Urnls Dip Stick Auto w/o Microscopy POC 15373 Your Care Team Attending Physician - Bandar ROGERS MD Primary Care Physician - GARY YEH MD Referring Physician - GARY YEH MD This Is Your Medications List alfuzosin (alfuzosin 10 mg ER Tab) doxycycline (doxycycline hyclate 100 mg Cap) dutasteride (dutasteride 0.5 mg Cap) Contact prescribing physician if questions or concerns aspirin (aspirin 81 mg oral capsule) atorvastatin (atorvastatin 40 mg Tab) carvedilol (carvedilol 6.25 mg Tab) multivitamin tadalafil (tadalafil 5 mg oral tablet) Procedures Performed Procedure on back, Ts - Tonsillectomy. Discharge Vitals Heart Rate (Peripheral) 80 Respiratory Rate 16 Blood Pressure 136/86 Height 183 cm Height 72 in Weight 86.5 kg Weight 190.3 lb BMI 25.83 What to do next Scheduled Follow-Up Appointments Friday 8:45 AM EDT With: REGINA SANTANA, Bandar Dash Where: [facility] Patient Educationon 10-27-19 Patient Education Infectious Disease Prostatitis Prostatitis is swelling or inflammation of the prostate gland, also called the prostate. This gland is about 1.5 inches wide and 1 inch high, and it is involved in making semen. The prostate is located below a man's bladder, in front of the rectum. There are four types of prostatitis: ? Chronic prostatitis (CP), also called chronic pelvic pain syndrome (CPPS). This is the most common type of prostatitis. It is associated with increased muscle tone in the area between the hip bones (pelvic area), around the prostate. This type is also known as a pelvic floor disorder. ? Chronic bacterial prostatitis. This type usually results from an acute bacterial infection in the prostate gland that keeps coming back or has not been treated properly. The symptoms are less severe than those caused by acute bacterial prostatitis, which lasts a shorter time. ? Asymptomatic inflammatory prostatitis. This type does not have symptoms and does not need treatment. This is diagnosed when tests are done for other disorders of the urinary tract or reproductive tract. ? Acute bacterial prostatitis. This type starts quickly and results from an acute bacterial infection in the prostate gland. It is usually associated with a bladder infection, high fever, and chills. This is the least common type of prostatitis. What are the causes? Bacterial prostatitis is caused by an infection from bacteria. Chronic nonbacterial prostatitis may be caused by: ? Factors related to the nervous system. This system includes thebrain, spinal cord, and nerves. ? An autoimmune response. This happens when the body's disease-fighting system attacks healthy tissue in the body by mistake. ? Psychological factors. These have to do with how the mind works. The causes of the other types of prostatitis are usually not known. What are the signs or symptoms? Symptoms of this condition depend on the type of prostatitis you have. Acute bacterial prostatitis Symptoms may include: ? Pain or burning during urination. ? Frequent and sudden urges to urinate. ? Trouble starting to urinate. ? Fever. ? Chills. ? Pain in your muscles or joints, lower back, or lower abdomen. Other types of prostatitis Symptoms may include: ? Sudden urges to urinate, or urinating often. ? Trouble starting to urinate. ? Weak urine stream. ? Dribbling after urination. ? Discharge coming from the penis. ? Pain in the testicles, the penis, or the tip of the penis. ? Pain in the area in front of the rectum and below the scrotum (perineum). ? Pain when ejaculating. How is this diagnosed? This condition may be diagnosed based on: ? A physical and medical exam. ? A digital rectal exam. For this, the health care provider may use a finger to feel the prostate. ? A urine test to check for bacteria. ? A semen sample or blood tests. ? Ultrasound. ? Urodynamic tests to check how your body handles urine. ? Cystoscopy to look inside your bladder or inside the part of your body that drains urine from the bladder (urethra). How is this treated? Treatment for this condition depends on the type of prostatitis. Treatment may involve: ? Medicines to relieve pain or inflammation, or to help relax your muscles. ? Physical therapy. ? Heat therapy. ? Biofeedback. These techniques help you control certain body functions. ? Relaxation exercises. ? Antibiotic medicine, if your condition is caused by bacteria. ? Sitz baths. These warm water baths help to relax your pelvic floor muscles, which helps to relieve pressure on the prostate. Follow these instructions at home: Medicines ? Take ejjt-kme-ubzgkkb and prescription medicines only as told by your health care provider. ? If you were prescribed an antibiotic medicine, take it as told by your health care provider. Do not stop using the antibiotic even if you start to feel better. Managing pain and swelling ? Take sitz baths as directed by your health care provider. For a sitz bath, sit in warm water that is deep enough to cover your hips and buttocks. ? If directed, apply heat to the affected area as often as told by your health care provider. Use the heat source that your health care provider recommends, such as a moist heat pack or a heating pad. ? Place a towel between your skin and the heat source. ? Leave the heat on for 20?30 minutes. ? Remove the heat if your skin turns bright red. This is especially important if you are unable to feel pain, heat, or cold. You may have a greater risk of getting burned. General instructions ? Do exercises as told by your health care provider, if you were prescribed physical therapy, biofeedback, or relaxation exercises. ? Keep all follow-up visits as told by your health care provider. This is important. Where to find more information ? [employer] [place] of Diabetes and Digestive and Kidney Diseases: (more content not included)... Normal [facility] US gall bladderon 02-12-2023 US gall bladder [facility] [place] [address] [place] [address] Ultrasound Report Signed Patient: Daniel Clemente MR#: [id number] : 1955 Acct:[id number] Age/Sex: 67 / M ADM Date: 02/12/23 Loc: Room: Type: [facility] Attending Dr: Luis Buchanan DO Ordering Provider: Luis Buchanan DO Date of Service: 02/12/23 US/US gall bladder: Nausea, vomiting, Upper Abd pain;Bilious vomiting with nause Copies to: Luis Buchanan DO LIMITED ABDOMINAL ULTRASOUND: CLINICAL HISTORY: Nausea vomiting upper abdominal pain COMPARISON: None TECHNIQUE: Grayscale and color Doppler images of the right upper quadrant organs were obtained. FINDINGS: Pancreas: Visualized portions appear unremarkable. Liver: No focal mass or intrahepatic ductal dilatation. Hepatopedal flow is seen within the portal vein. Gallbladder: Cholelithiasis. No gallbladder wall thickening or pericholecystic fluid. CBD: 4.8 mm US/US gall bladder IMPRESSION: CHOLELITHIASIS WITHOUT SONOGRAPHIC EVIDENCE OF ACUTE CHOLECYSTITIS.. Impression dictated by: Jono Wood Jr., D.OHenna02/12/2023 11:45 AM Dictation Location: [place] [address] Tech: Charley Sue Transcribed By: CASEY 02/12/23 1145 Dictated By: Jono Wood Jr, DO 02/12/23 1143 Signed By: 02/12/23 1145 [facility] Exercise nuclear stress test with myocardial perfusionOrdered By: Mike Madrigal on 06-04-2022 ACT Kaolin induced method (PPP) 9 [facility] Work Phone: ACT Kaolin induced method (PPP) [Relative time] 39575.0 mmHg*bpm [facility] Work Phone: Angina Index 0 [facility] Work Phone: Baseline DBP 93 mmHg [facility] Work Phone: Baseline HR 56 bpm [facility] Work Phone: Baseline SBP 157 mmHg [facility] Work Phone: Body surface area Derived from formula 2.12 m2 [facility] Work Phone: Estimated workload 11.2 METS [facility] Work Phone: Exercise/injection duration (sec) 57 [facility] Work Phone: Nuc Stress EDV 113.0 mL [facility] Work Phone: Nuc Stress ESV 38.0 mL [facility] Work Phone: Nucleated RBC/100 WBC (Bld) [Ratio] 66 % [facility] Work Phone: Peak DBP 105 mmHg [employer] Phone: Peak HR 115 bpm [employer] Phone: Peak SBP 205 mmHg [employer] Phone: Percent HR 75 % [employer] Phone: Target HR 131 bpm [employer] Phone: Exercise nuclear stress test with myocardial perfusionon 06-04-2022 The patient was stressed according to the PARISH protocol for 09:57 min:s, achieving a work level of Max. METS: 11.2. The resting heart rate of 56 bpm estrada to a maximal heart rate of 115 bpm. This value represents 74 % of the maximal, age-predicted heart rate. The resting blood pressure of 157/93 mmHg , estrada to a maximum blood pressure of 205/105 mmHg. Stress ECG was normal. LV perfusion is abnormal. There is a left ventricular perfusion defect that is medium in size present in the mid to basal lateral location(s) that is predominantly fixed. The defect appears to be an infarction and limited doe-infarct ischemia. Abnormal basal lateral wall motion with overall normal left ventricular systolic function by quantitative ejection fraction analysis. Stress Findings A [facility] protocol stress test was performed. Overall, the patient's exercise capacity was above average. Total exercise time was 9 min and 57 sec. The patient experienced no angina during the test. The patient requested the test to be stopped. The patient's hemodynamic response was adequate for diagnosis. Blood pressure demonstrated a normal response. Heart rate demonstrated a normal response. Onset of symptoms occurred at Stage 4 of the protocol. The patient reported shortness of breath during the stress test. ECG The ECG shows sinus bradycardia. The ECG axis shows left deviation. Peaked T waves noted at baseline. Arrhythmias during stress: rare premature ventricular contractions (PVCs) . There is non-specific ST abnormalities during stress. Arrhythmias during recovery: rare premature ventricular contractions (PVCs). The result of the stress ECG was negative for ischemia. Nuclear Study Quality Study technique: Rest/stress 1 day. Overall image quality is good. CT attenuation correction was utilized. Patient has a history of abnormal ECG, CAD and Hypertension, hyperlipidemia Home Medications amLODIPine (NORVASC) 5 mg tabletTake 1 tablet (5 mg total) by mouth 1 (one) time each day. aspirin 81 mg EC tabletTake 81 mg by mouth 1 (one) time each day. atorvastatin (LIPITOR) 40 mg tabletTake 1 tablet (40 mg total) by mouth at bedtime. carvediloL (COREG) 6.25 mg tabletTake 1 tablet (6.25 mg total) by mouth 2 (two) times a day with meals. tadalafiL (CIALIS) 5 mg tabletTake 1 tablet by mouth as needed. . Perfusion Defect There is a left ventricular perfusion defect that is medium in size present in the mid to basal lateral location(s) that is predominantly fixed. There is abnormal wall motion in the defect area. The defect appears to be an infarction and a limited region of doe-infarct ischemia. Perfusion defect was visually and quantitatively present. Stress Function Comments Left ventricular systolic function post-stress is normal. Post-stress ejection fraction is 66 %. Nuclear Prior Study There is no prior study available for comparison. Perfusion Comments LV perfusion is abnormal. CV RAD PACS STRESS Transthoracic echocardiogram (TTE) complete with PRN contrast, bubble, strain, and 3D order panelOrdered By: Codey Eldridge on 06-04-2022 Ao VTI 34.6 cm [employer] Phone: Aortic Root 3.3 cm [employer] Work Phone: Aortic Root Index 1.57 cm/m2 [employer] Phone: Ascending Aorta 4.2 cm [employer] [facility] Work Phone: AV Area Continuity Equation 4.1 cm2 [employer] Phone: AV Area Peak Velocity 3.9 cm2 [employer] Phone: AV Mean Gradient 4 mmHg [employer] Phone: AV Peak Gradient 8 mmHg [employer] Phone: AV Peak Sterling 1.4 m/s [employer] Work Phone: AV Velocity Ratio 0.93 [employer] Phone: HERMAN Index (Pk Sterling) 1.86 cm2/m2 [facility] Work Phone: HERMAN Index (VTI) 1.95 cm2/m2 [facility] Work Phone: Body surface area Derived from formula 2.12 m2 [facility] Work Phone: E Wave Deceleration Time 201 ms 119 - 242 ms [facility] Work Phone: E/E' Ratio Averaged 12 [facility] Work Phone: E/E' Ratio Lateral 10 [facility] Work Phone: E/E' Ratio Septal 14 [facility] Work Phone: Ejection Fraction (3D) 56 % [facility] Work Phone: Est. RA Pressure 3 mmHg [facility] Work Phone: FS 25 % [facility] Work Phone: Global Longitudinal Strain -21.2 % [facility] Work Phone: Interpretation and review of laboratory results Abnormal [facility] Work Phone: IVC Proximal 1.2 cm [facility] Work Phone: IVSD 1.0 cm 0.6 - 1.0 cm [facility] Work Phone: LA Area Sys (A2C) 22 cm2 [facility] Work Phone: LA Area Sys (A4C) 23 cm2 [facility] Work Phone: LA Dimension Index 2D 1.9 cm/m2 [facility] Work Phone: LA Size 4.0 cm [facility] Work Phone: LA Volume (BP) 70 mL [facility] Work Phone: LA Volume Index (BP) 33 mL/m2 [facility] Work Phone: LA/Ao Ratio 1.2 [facility] Work Phone: Left Atrium Major [place] 5.8 cm [facility] Work Phone: Left Atrium Minor [place] 5.9 cm [facility] Work Phone: LV Jurado Vol 3D 182 mL [facility] Work Phone: LV EDV Index (3D) 87 mL/m2 [facility] Work Phone: LV ESV Index (3D) 38 mL/m2 [facility] Work Phone: LV Mass 2D 148 g [facility] Work Phone: LV Mass 3D 178 g [facility] Work Phone: LV Mass Index 2D 70 g/m2 [facility] Work Phone: LV Mass Index 3D 85 g/m2 [facility] Work Phone: LV Sys Vol 3D 80 mL [facility] Work Phone: LVIDD 4.4 cm 4.2 - 5.8 cm [facility] Work Phone: LVIDD Index 2.10 cm/m2 [facility] Work Phone: LVIDS 3.3 cm 2.5 - 4.0 cm [facility] Work Phone: LVIDS Index 1.57 cm/m2 [facility] Work Phone: LVOT Area 4.2 cm2 [facility] Work Phone: LVOT Diameter 2.3 cm [facility] Work Phone: LVOT flow 415 mL/s [facility] Work Phone: LVOT Mean Grad 4 mmHg Neisha He [facility] Work Phone: LVOT Mean Sterling 1.0 m/s [facility] Work Phone: LVOT Peak Gradient 7 mmHg [facility] Work Phone: LVOT Peak Sterling 1.3 m/s Neisha Hea [facility] Work Phone: LVOT Peak VTI 34.2 cm [employer] [facility] Work Phone: LVOT Stroke Index 68 mL/m2 Neisha [employer] Work Phone: LVOT Stroke Volume 142 mL [facility] [employer] Work Phone: LVOT:AV VTI Index 0.99 Neisha [employer] Work Phone: LVPWD 1.0 cm 0.6 - 1.0 cm Neisha [facility] Work Phone: Microscopic observation Charly (Ear) [Interp] 0.9 [employer] Work Phone: MV E' Tissue Velocity Lateral 10 cm/s [employer] Work Phone: MV E' Tissue Velocity Septal 7 cm/s [employer] Work Phone: MV Peak A Sterling 1.03 m/s [employer] [facility] Work Phone: MV Peak E [place] 0.96 m/s [employer] [facility] Work Phone: PV Peak Gradient 3 mmHg [employer] Phone: PV Peak Velocity 0.9 m/s [employer] Phone: Relative Wall Thickness ratio 0.45 [employer] Phone: Right Ventricular Peak Systolic Pressure 26 mmHg [employer] Work Phone: RV Diastolic Basal Dimension 4.4 cm Abnormal 2.5 - 4.1 cm [employer] Work Phone: RV Diastolic Length 8.5 cm Abnormal 5.9 - 8.3 cm [facility] [employer] Work Phone: RV Diastolic Mid Dimension 3.4 cm 1.9 - 3.5 cm [employer] Phone: TR Peak Gradient 23 mmHg [employer] Work Phone: TR Peak Velocity 2.39 m/s [employer] Work Phone: [employer] Work Phone: Transthoracic echocardiogram (TTE) complete with PRN contrast, bubble, strain, and 3D order panelon 06-04-2022 Left ventricular siz e and systolic function are normal; LVEF 55-60%. Normal global longitudinal strain at -21.2%. No regional wall motion abnormalities. Right ventricular size is upper normal with normal systolic function. Mild mitral regurgitation. Ascending aorta is mildly dilated at 4.2 cm. No pericardial effusion. Left Ventricle Left ventricle cavity size is normal. Wall thickness is normal. Systolic function is normal with an ejection fraction of 55-60%. LV global longitudal strain is normal of -21.2%. There are no regional LV wall motion abnormalities. There is no diastolic dysfunction. Right Ventricle Right ventricle cavity appears upper normal. Systolic function is normal. Left Atrium Left atrium cavity size is upper normal. Right Atrium Right atrium cavity is normal. IVC/SVC Inferior vena cava structure is normal. Mitral Valve The leaflets are mildly thickened. There is mild regurgitation. There is no significant stenosis noted. Tricuspid Valve Tricuspid valve structure is normal. There is no significant regurgitation. There is no significant tricuspid valve stenosis. Aortic Valve The aortic valve is trileaflet. The leaflets are not thickened and exhibit normal excursion. There is no regurgitation or stenosis. Pulmonic Valve The pulmonic valve was not well visualized. No significant pulmonic valve regurgitation. No significant pulmonary valve stenosis noted. Ascending Aorta The ascending aorta is mildly dilated (4.2 cm). Pericardium Pericardium appears normal. There is no pericardial effusion. Study Details Overall the study quality was adequate. Additional technique includes 3D w/o workstation and myocardial strain. The underlying ECG rhythm was sinus rhythm. CV PACS ECG 12 lead (MIDMARK)on 05-13 [employer] Sinus Bradycardia Low voltage in limb leads. -Peaked anterior T-waves -consider hyperkalemia. ABNORMAL [employer] Complete Blood Counton 02-04 Erythrocyte distribution width (RBC) [Ratio] 12.8 % Normal 11.0-15.0 [facility] [employer] Comment on above: Performed By: #### T SH reflex FT4, LIPD, CMP, CBC #### [facility] [address] [place], [place] [id number] Hematocrit (Bld) [Volume fraction] 46.3 % Normal 38.5-50.0 [facility] Comment on above: Performed By: #### T SH reflex FT4, LIPD, CMP, CBC #### [facility] [address] [place], [place] [id number] Hemoglobin (Bld) [Mass/Vol] 15.6 g/dL Normal 13.0-17.1 [facility] Comment on above: Performed By: #### T SH reflex FT4, LIPD, CMP, CBC #### [facility] [address] [place], [place] [id number] MCH (RBC) [Entitic mass] 31.0 pg Normal 27.0-33.0 [facility] Comment on above: Performed By: #### T SH reflex FT4, LIPD, CMP, CBC #### [facility] [address] [place], [place] [id number] MCHC (RBC) [Mass/Vol] 33.7 g/dL Normal 32.0-36.0 [facility] Comment on above: Performed By: #### T SH reflex FT4, LIPD, CMP, CBC #### [facility] [address] [place], [place] [id number] MCV (RBC) [Entitic vol] 92 fL Normal 80-100 [facility] Comment on above: Performed By: #### T SH reflex FT4, LIPD, CMP, CBC #### [facility] [address] [place], [place] [id number] Platelet mean volume (Bld) [Entitic vol] 10.80 fL Normal 7.50-12.50 [facility] Comment on above: Performed By: #### T SH reflex FT4, LIPD, CMP, CBC #### [facility] [address] [place], [place] [id number] Platelets (Bld) [#/Vol] 218 10*3/uL Normal 140-400 [facility] Comment on above: Performed By: #### T SH reflex FT4, LIPD, CMP, CBC #### [facility] [address] [place], [place] [id number] RBC (Bld) [#/Vol] 5.03 10*6/uL Normal 4.20-5.80 [place] [employer] Comment on above: Performed By: #### T SH reflex FT4, LIPD, CMP, CBC #### [facility] [address] [place], [place] [id number] RDW-SD 43.3 fL Normal 37.0-50.0 [facility] [employer] Comment on above: Performed By: #### T SH reflex FT4, LIPD, CMP, CBC #### [facility] [address] [place], [place] [id number] WBC (Bld) [#/Vol] 8.1 10*3/uL Normal 3.8-11.0 Carli rn [place] [employer] Comment on above: Performed By: #### T SH reflex FT4, LIPD, CMP, CBC #### [facility] [address] [place], [place] [id number] Comprehensive Metabolic Pane [facility] 02-04-2022 Albumin [Mass/Vol] 4.4 g/dL Normal 3.6-5.1 [place] [employer] Comment on above: Performed By: #### T SH reflex FT4, LIPD, CMP, CBC #### [facility] [address] [place], [place] [id number] Albumin/Globulin [Mass ratio] 2.1 {ratio} Normal 1.0-2.5 [facility] Comment on above: Performed By: #### T SH reflex FT4, LIPD, CMP, CBC #### [facility] [address] [place], [place] [id number] ALP [Catalytic activity/Vol] 74 U/L Normal 40-129 [facility] Comment on above: Performed By: #### T SH reflex FT4, LIPD, CMP, CBC #### [facility] [address] [place], [place] [id number] ALT [Catalytic activity/Vol] 22 U/L Normal 9-46 [facility] [employer] Comment on above: Result Comment: 09/12 Female reference range changed. Performed By: #### T SH reflex FT4, LIPD, CMP, CBC #### [facility] [address] [place], [place] [id number] Anion gap [Moles/Vol] 15 mmol/L Normal 12-20 [facility] [employer] Comment on above: Result Comment: Effe ctive 10/18/2019 reference range changed. Performed By: #### T SH reflex FT4, LIPD, CMP, CBC #### [facility] [address] [place], [place] [id number] AST [Catalytic activity/Vol] 22 U/L Normal 10-40 [facility] Comment on above: Performed By: #### T SH reflex FT4, LIPD, CMP, CBC #### [facility] [address] [place], [place] [id number] Bilirubin [Mass/Vol] 0.44 mg/dL Normal 0.30-1.20 [facility] Comment on above: Performed By: #### T SH reflex FT4, LIPD, CMP, CBC #### [facility] [address] [place], [place] [id number] BUN/CREA 31 Ratio High 6-22 [facility] Comment on above: Performed By: #### T SH reflex FT4, LIPD, CMP, CBC #### [facility] [address] [place], [place] [id number] Calcium [Mass/Vol] 9.3 mg/dL Normal 8.6-10.2 [facility] Comment on above: Performed By: #### T SH reflex FT4, LIPD, CMP, CBC #### [facility] [address] [place], [place] [id number] Chloride [Moles/Vol] 108 mmol/L High 98-107 [facility] Comment on above: Performed By: #### T SH reflex FT4, LIPD, CMP, CBC #### [facility] [address] [place], [place] [id number] CO2 [Moles/Vol] 26 mmol/L Normal 20-31 [facility] Comment on above: Performed By: #### T SH reflex FT4, LIPD, CMP, CBC #### [facility] [address] [place], [place] [id number] Creatinine [Mass/Vol] 0.7 mg/dL Normal 0.7-1.4 [facility] Comment on above: Performed By: #### T SH reflex FT4, LIPD, CMP, CBC #### [facility] [address] [place], [place] [id number] eGFRAA 139 mL/min/1.73m2 Normal >60 [facility] [employer] Comment on above: Performed By: #### T SH reflex FT4, LIPD, CMP, CBC #### [facility] [address] [place], [place] [id number] eGFRNAA 115 mL/min/1.73m2 Normal >60 [facility] [employer] Comment on above: Performed By: #### T SH reflex FT4, LIPD, CMP, CBC #### [facility] [address] [place], [place] [id number] Globulin (S) [Mass/Vol] 2.1 g/dL Normal 1.9-3.7 [facility] [employer] Comment on above: Performed By: #### T SH reflex FT4, LIPD, CMP, CBC #### [facility] [address] [place], [place] [id number] Glucose [Mass/Vol] 104 mg/dL High 65-99 Carli mendez [place] [employer] Comment on above: Result Comment: For FASTING Glucose --- ADA reference ranges: Normal 65-99 mg/dl Prediabetes 100-125 Diabetes >/= 126 Performed By: #### T SH reflex FT4, LIPD, CMP, CBC #### [facility] [address] [place], [place] [id number] Potassium [Moles/Vol] 4.5 mmol/L Normal 3.5-5.5 [facility] [employer] Comment on above: Performed By: #### T SH reflex FT4, LIPD, CMP, CBC #### [facility] [address] [place], [place] [id number] Protein [Mass/Vol] 6.5 g/dL Normal 6.1-8.1 Carli mendez [place] [employer] Comment on above: Performed By: #### T SH reflex FT4, LIPD, CMP, CBC #### [facility] [address] [place], [place] [id number] Sodium [Moles/Vol] 144 mmol/L Normal 135-146 Carli mendez [place] [employer] Comment on above: Performed By: #### T SH reflex FT4, LIPD, CMP, CBC #### [facility] [address] [place], [place] [id number] Urea nitrogen [Mass/Vol] 22 mg/dL Normal 7-25 [facility] [employer] Comment on above: Performed By: #### T SH reflex FT4, LIPD, CMP, CBC #### [facility] [address] [place], [place] [id number] Lipid Panelon 02-04-2022 Cholesterol [Mass/Vol] 127 mg/dL Normal 125-200 [facility] Comment on above: Result Comment: Low risk < 200mg/dL Borderline risk 201-239 mg/dl High risk > or equal to 240 Performed By: #### T SH reflex FT4, LIPD, CMP, CBC #### [facility] [address] [place], [place] [id number] Cholesterol in HDL [Mass/Vol] 40 mg/dL Low >40 [facility] [employer] Comment on above: Result Comment: High Cardiovascular Risk HDL <40 mg/dL Low Cardiovascular Risk HDL > or equal to 60 mg/dl Performed By: #### T SH reflex FT4, LIPD, CMP, CBC #### [facility] [address] [place], [place] [id number] Cholesterol in LDL [Mass/Vol] 72 mg/dL Normal [facility] Comment on above: Result Comment: LDL ATP III CLASSIFICATION LDL less than 100 mg/dl Optimal LDL 100-129 mg/dl Near or above optimal LDL 130-159 Borderline high LDL 160-189 High LDL greater than 189 mg/dl Very High Performed By: #### T SH reflex FT4, LIPD, CMP, CBC #### [facility] [address] [place], [place] [id number] Cholesterol in VLDL [Mass/Vol] 15 mg/dL Normal [facility] Comment on above: Performed By: #### T SH reflex FT4, LIPD, CMP, CBC #### [facility] [address] [place], [place] [id number] Cholesterol.total/Ch olesterol in HDL [Mass ratio] 3 {ratio} Normal [facility] Comment on above: Performed By: #### T SH reflex FT4, LIPD, CMP, CBC #### [facility] [address] [place], [place] [id number] Triglyceride [Mass/Vol] 75 mg/dL Normal 30-150 [facility] [employer] Comment on above: Result Comment: TRIG ATPIII CLASSIFICATIONS TRIG less than 150 mg/dl Normal TRIG 150-199 mg/dl Borderline High TRIG 200-500 mg/dl High TRIG greather than 500 mg/dl Very High Performed By: #### T SH reflex FT4, LIPD, CMP, CBC #### [facility] [address] [place], [place] [id number] PSA SCREEN (MEDICARE)on 01-12 TPSA 3.880 ng/mL Normal <4.000 [facility] [employer] Comment on above: Result Comment: PSA Test Method: ECLIA/Jeremy e 601 Performed By: #### P SA #### [facility] [address] [place], [place] [id number] TSH w/ Reflex to Free T4on 0 02-04-2022 TSH 2.530 uIU/mL Normal 0.400-4.500 [facility] [employer] Comment on above: Performed By: #### T SH reflex FT4, LIPD, CMP, CBC #### [facility] [address] [place], [place] [id number] CT CHEST WO CONon 12-24-2021 CT CHEST WO CON EXAMINATION: CT CHES T WO CON HISTORY: Imaging result abnormal COMPARISON: No relevant comparison available. TECHNIQUE: Multi-planar CT images were created with IV contrast. Axial, Coronal, and Sagittal images. Dose reduction techniques were achieved by using automated exposure control and/or adjustment of mA and/or kV according to patient size and/or use of iterative reconstruction technique. FINDINGS: LUNGS: Bilateral scattered punctate nodules, grossly stable both in number and size as significant in the right upper lobe. Mild peribronchial thickening with no bronchiectasis. PLEURA: No mass, effusion, or pneumothorax. VASCULATURE: No abnormality. MAYITO: No mass or adenopathy. MEDIASTINUM: No mass or adenopathy. CARDIAC: No enlargement or pericardial effusion. Moderate coronary atherosclerosis AORTA: Aneurysm of the ascending thoracic aorta measuring 4.3 cm in diameter, axial image 67, stable CHEST WALL: Asymmetric enlargement of the right thyroid lobe containing a hypodense nodule BONES: 1.6 x 1.1 cm lytic lesion in the T8 vertebral body, nonspecific, stable from the prior exam. Mild degenerative changes. LIMITED ABDOMEN: No suspicious findings. Limited images of the upper abdomen. OTHER: Negative. IMPRESSION: Stable scattered punctate pulmonary nodules, nonspecific Electronically authenticated by: MATT SIMMS Date: 2021-12-24 11:02 Normal [facility] CT LUNG CANCER SCREENINGon 0 01-17-2021 CT LUNG CANCER SCREENING EXAMINATION: CT LUNG CANCER SCREENING HISTORY: Nicotine dependence COMPARISON: No relevant comparison available. TECHNIQUE: Axial, Coronal, and Sagittal images were created without the administration of IV contrast material. Dose reduction techniques were achieved by using automated exposure control and/or adjustment of mA and/or kV according to patient size and/or use of iterative reconstruction technique. FINDINGS: LUNGS: Mild emphysematous changes. A few tiny 2-3 mm nodules scattered within the lungs, nonspecific. PLEURA: No mass, effusion, or pneumothorax. VASCULATURE: No abnormality. MAYITO: No mass or pathologic adenopathy. MEDIASTINUM: No mass or pathologic adenopathy. CARDIAC: No enlargement, pericardial thickening, or significant calcification. AORTA: No aneurysm or dissection. CHEST WALL: No mass or axillary adenopathy BONES: No bone lesion or fracture. LIMITED ABDOMEN: No suspicious findings. Limited images of the upper abdomen. OTHER: Negative. IMPRESSION: 1. LUNG SCREENING: Lung-RADS Category 3- Probably benign. Probably benign finding(s)- short term follow up suggested; includes nodules with a low likelihood of becoming a clinically active cancer. Six month LDCT. 2. Mild emphysematous changes. Electronically authenticated by: CADEN KEMP Date: 2021-01-17 10:34 Normal [facility] US ABD AORTA SCREENINGon US ABD AORTA SCREENING EXAM: US ABD AORTA SCREENING HISTORY: Nicotine dependence. TECHNIQUE: Ultrasound was performed of the abdominal aorta. COMPARISON: None. FINDINGS: AORTA: Mild atherosclerotic disease throughout the aorta without significant narrowing. Diameter of the proximal, mid, and distal aorta are 3.0 cm, 2.4 cm, and 2.0 cm respectively. No aneurysmal dilation. OTHER: Mild atherosclerotic disease of the iliac arteries without aneurysmal dilation. IMPRESSION: 1. No aneurysmal dilation of the abdominal aorta. 2. Minimal atherosclerotic disease. Electronically authenticated by: CADEN KEMP Date: 2021-01-17 10:00 Normal [facility] AST/SGOTon 09-03-2019 AST [Catalytic activity/Vol] 20 Units/L Normal 15-41 [facility] Comment on above: Performed By: #### 1 920-8, 2157-03, 15277-4 #### [facility] [address] [place] [address] Creatine Kinase (CK)on 09-03 CK [Catalytic activity/Vol] 46 Units/L Normal 21-232 [facility] Comment on above: Performed By: #### 1 920-8, 2157-03, 22890-7 #### [facility] [address] [place] [address] Lipid Panelon 09-03-2019 Cholesterol [Mass/Vol] 121 mg/dL Normal <200 [facility] Comment on above: Result Comment: Refe r to the National Cholesterol Education Program ATP III cut offs for risk stratification. Performed By: #### 1 920-8, 2157-03, 34434-8 #### [facility] [address] [place] [address] Cholesterol in HDL [Mass/Vol] 35 mg/dL Low >40 [facility] Comment on above: Performed By: #### 1 920-8, 2157-03, 33682-6 #### [facility] [address] [place] [address] Cholesterol in LDL [Mass/Vol] 67 mg/dL Normal <100 [facility] Comment on above: Performed By: #### 1 920-8, 2157-03, 04093-0 #### [facility] [address] [place] [address] Cholesterol in VLDL [Mass/Vol] 19 mg/dL Normal 2-38 [facility] Comment on above: Performed By: #### 1 920-8, 2157-03, 62614-2 #### [facility] [address] [place] [address] Triglyceride [Mass/Vol] 94 mg/dL Normal <200 [facility] Comment on above: Performed By: #### 1 920-8, 2157-03, 10255-1 #### [facility] [address] [place] [address] Vital Signs Date Time Vital Sign Value Performing Clinician Facility 04-28-2024 10:17-0400 Blood Pressure Location Bandar ROGERS [facility] 04-28-2024 10:17-0400 Body temperature 98.6 [degF] Bandar ROGERS [facility] 04-28-2024 10:17-0400 Diastolic blood pressure 83 mm[Hg] Bandar ROGERS [facility] 04-28-2024 10:17-0400 Heart rate 75 /min Bandar ROGERS [facility] 04-28-2024 10:17-0400 Respiratory rate 16 /min Bandar ROGERS [facility] 04-28-2024 10:17-0400 Systolic blood pressure 138 mm[Hg] Bandar ROGERS [facility] 04-07-2024 07:35-0400 Blood Pressure Location Bandar ROGERS [facility] 04-07-2024 07:35-0400 Body temperature 98.6 [degF] Bandar ROGERS [facility] 04-07-2024 07:35-0400 Diastolic blood pressure 73 mm[Hg] Bandar ROGERS [facility] 04-07-2024 07:35-0400 Heart rate 65 /min Bandar ROGERS [facility] 04-07-2024 07:35-0400 Respiratory rate 16 /min Bandar ROGERS [facility] 04-07-2024 07:35-0400 Systolic blood pressure 134 mm[Hg] Bandar ROGERS [facility] 01-21-2024 16:32-0400 Blood Pressure Location Bandarely ROGERS [facility] 01-21-2024 16:32-0400 Body temperature 98.24 [degF] Bandar ROGERS [facility] 01-21-2024 16:32-0400 Diastolic blood pressure 84 mm[Hg] Bandar ROGERS [facility] 01-21-2024 16:32-0400 Heart rate 65 /min Bandarely ROGERS [facility] 01-21-2024 16:32-0400 Respiratory rate 16 /min Bandar ROGERS [facility] 01-21-2024 16:32-0400 Systolic blood pressure 132 mm[Hg] Bandar ROGERS [facility] 01-02-2024 13:56-0400 Body mass index (BMI) [Ratio] 27.06 kg/m2 Tom Harrison MD Work Phone: [facility] 01-02-2024 13:56-0400 Body weight 90.63 kg Tom Harrison MD Work Phone: [facility] 01-02-2024 13:56-0400 Diastolic blood pressure 82 mm[Hg] Tom Harrison MD Work Phone: [facility] 01-02-2024 13:56-0400 Heart rate 66 /min Tom Harrison MD Work Phone: [facility] 01-02-2024 13:56-0400 Respiratory rate 16 /min Tom Harrison MD Work Phone: [facility] 01-02-2024 13:56-0400 Systolic blood pressure 136 mm[Hg] Tom Harrison MD Work Phone: [facility] 10-27-2023 09:25-0500 Blood Pressure Location Bnadar ROGERS [facility] 10-27-2023 09:25-0500 Diastolic blood pressure 86 mm[Hg] Bandar ROGERS [facility] 10-27-2023 09:25-0500 Heart rate 80 /min Bandar ROGERS [facility] 10-27-2023 09:25-0500 Respiratory rate 16 /min Bandar ROGERS [facility] 10-27-2023 09:25-0500 Systolic blood pressure 136 mm[Hg] Bandar ROGERS [facility] 06-04-2022 07:47-0400 Body height [address] 06-04-2022 07:47-0400 Body mass index (BMI) [Ratio] 26.28 kg/m2 [address] 06-04-2022 07:47-0400 Body weight [address] 06-04-2022 07:47-0400 Diastolic blood pressure 79 mm[Hg] 3 [facility] 06-04-2022 07:47-0400 Systolic blood pressure 136 mm[Hg] 3 [facility] 06-04-2022 07:36-0400 Body height 182.[address] 06-04-2022 07:36-0400 Body mass index (BMI) [Ratio] 26.31 kg/m2 1 [facility] 06-04-2022 07:36-0400 Body weight 88 kg Mc 1 [facility] 05-27-2022 11:06-0400 Body height 182.9 cm Tom Harrison MD Work Phone: [employer] 05-27-2022 11:06-0400 Body mass index (BMI) [Ratio] 26.31 kg/m2 Tom Harrison MD Work Phone: [employer] 05-27-2022 11:06-0400 Body weight 88 kg Tom Harrison MD Work Phone: [employer] 05-27-2022 11:06-0400 Diastolic blood pressure 79 mm[Hg] Tom Harrison MD Work Phone: [employer] 05-27-2022 11:06-0400 Heart rate 62 /min Tom Harrison MD Work Phone: [employer] 05-27-2022 11:06-0400 Systolic blood pressure 136 mm[Hg] Tom Harrison MD Work Phone: [employer] Encounters Encounter Date Encounter Type Care Provider Facility Start: 07-05-2024 ambulatory Bandar Mcneil ty:CD:[id number] Start: 06-23-2024 End: 06-23-2024 ambulatory GARY YEH Not Available Start: 06-07-2024 End: 06-07-2024 ambulatory GARY YEH Not Available Start: 04-28-2024 End: 04-28-2024 ambulatory Bandar ROGERS Facility:[facility] Start: 04-28-2024 End: 04-28-2024 Patient encounter procedure Bandar ROGERS [facility] Start: 04-23-2024 ambulatory Bandar Cheni ty:EU Kar[facility] Start: 04-13-2024 End: 04-13-2024 Telephone encounter Dominga Wyatt RN [facility] Comment on above: Levofloxacin Start: 04-07-2024 End: 06-26-2024 Lab Drop off Bandar ROGERS [facility] Start: 04-07-2024 End: 04-07-2024 ambulatory Bandar ROGERS Facility:[facility] Start: 04-07-2024 End: 04-07-2024 Patient encounter procedure Bandar ROGERS [facility] [place] Start: 03-15-2024 ambulatory Bandar ROGERS Facili ty:[facility] [place] Start: 02-20-2024 ambulatory Bandar ROGERS Facili ty:[facility] [place] Start: [facility]-26[facility]: 01-26-2024 End: 01-26-2024 Evaluation and management of inpatient [facility] 1 [facility] Start: 01-26-2024 End: 01-26-2024 Subsequent hospital visit by physician Evelina 1 [facility] Comment on above: Aneurysm of aortic a rch without rupture (CMS/HCC) Start: 01-23-2024 End: 02-25-2024 Pre-admission assessment Bandar ROGERS [facility] Start: 01-21-2024 End: 01-21-2024 ambulatory Bandar ROGERS Facility:[facility] Start: 01-21-2024 End: 01-21-2024 Patient encounter procedure Bandar ROGERS [facility] [place] Start: 01-02-2024 End: 01-02-2024 [facility] Start: 01-02-2024 End: 01-02-2024 Office outpatient visit 25 minutes Tom Harrison MD Work Phone: [facility] Comment on above: Hypertension, unspec ified type (Primary Dx); 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) Start: 01-02-2024 End: 01-02-2024 Patient encounter procedure Tom Harrison MD Work Phone: [facility] [place] Start: 10-27-2023 End: 10-27-2023 ambulatory Bandar ROGERS Facility:[facility] Start: 10-27-2023 End: 10-27-2023 Patient encounter procedure Bandar ROGERS [facility] [place] Start: 07-18-2023 ambulatory Bandar ROGERS Facility : [place] Start: 02-12-2023 End: 02-12-2023 ambulatory Luis Lynnbri Facility:[facility] Start: 02-12-2023 End: 02-12-2023 ambulatory II Gary Yeh Work Phone: [facility] Work Phone: Start: 02-12-2023 End: 02-12-2023 Patient encounter procedure II Gary Yeh Work Phone: [facility] [place] Work Phone: Start: 10-12-2022 Refmarcus Harrison MD Work Phone: [facility] Comment on above: Coronary arterioscle rosis Start: 10-12-2022 Refmarcus Harrison MD Work Phone: [facility] Start: 07-31-2022 Refmarcus Harrison MD Work Phone: [facility] [place] Comment on above: Coronary arterioscle rosis Start: 07-31-2022 Barrington Harrison MD Work Phone: [facility] [place] Start: 07-30-2022 Barrington Harrison MD Work Phone: [facility] [place] Comment on above: Coronary arterioscle rosis Start: 07-30-2022 Refill Tom Harrison MD Work Phone: [facility] [place] Start: 06-22-2022 Refill Tom Harrison MD Work Phone: [facility] [place] Comment on above: Coronary arterioscle rosis Start: 06-22-2022 Refill Tom Harrison MD Work Phone: [facility] [place] Start: 06-22-2022 Refill Tom Harrison MD Work Phone: [facility] [place] Comment on above: Coronary arterioscle rosis Start: 06-04-2022 End: 06-04-2022 EKG myocardial ischemia 3 [facility] [place] Start: 06-04-2022 End: 06-04-2022 Evaluation and management of inpatient [facility] 3 [facility] Start: 06-04-2022 End: 06-04-2022 Subsequent hospital visit by physician 3 [facility] Comment on above: Pre-operative cardio vascular exam, new EKG abnormalities c/w ischemia Start: 05-27-2022 End: 05-27-2022 EKG myocardial ischemia Tom Harrison MD Work Phone: [facility] Start: 05-27-2022 End: 05-27-2022 Office outpatient visit 25 minutes Tom Harrison MD Work Phone: [facility] [place] Comment on above: Hypertension, unspec ified type (Primary Dx); Pre-operative cardiovascular exam, new EKG abnormalities c/w ischemia Start: 05-27-2022 End: 05-27-2022 Patient encounter procedure Tom Harrison MD Work Phone: [facility] [place] Start: 04-11-2022 Refill Dominga Wyatt RN [facility] [place] Comment on above: Coronary arterioscle rosis Start: 04-11-2022 Refill Dominga Wyatt RN [facility] [place] Start: 12-24-2021 End: 12-25-[address] GARY YEH Facility:[facility] Start: 09-13-2021 Refill Dominga Wyatt RN [facility] [place] Comment on above: Coronary arterioscle rosis (Primary Dx) Start: 09-13-2021 End: 09-13-2021 Refill Dominga Wyatt RN [facility] Start: 07-24-[address] GARY YEH Facilit y:[facility] Start: 01-17-2021 End: 01-18-[address] GARY YEH Facility:[facility] Procedures Date Procedure Procedure Detail Performing Clinician Start: 04-07-2024 Transrectal needle b iopsy of prostate Bandar ROGERS Start: 01-26-2024 Ct angiography chest w/contrast/noncontrast Tom Harrison MD Work Phone: Start: 01-26-2024 Creatinine blood Generi c Provider Poct Work Phone: Start: 01-02-2024 Ecg routine ecg w/le ast 12 lds w/i&r Tom Harrison MD Work Phone: Start: 02-12-2023 US scan of gallbladder II Gary Yeh Work Phone: Start: 06-04-2022 Myocardial spect mul tiple studies Tom Harrison MD Work Phone: Start: 06-04-2022 Echo tthrc r-t 2d w/wom-mode compl spec&colr d Tom Harrison MD Work Phone: Start: 05-27-2022 Ecg routine ecg w/le ast 12 lds w/i&r Tom Harrison MD Work Phone: Procedure on back Bandar DUMONT Tonsillectomy Bandarely ROGERS Plan of Treatment Date Care Activity Detail Author Start: 02-04-2027 Lipid panel Cholesterol Sc reening (Lipid Panel) [facility] Start: 01-25-2025 Hypertension/CHF/CAD Annual BMP Blood Test Hypertension/CHF/CAD Annual BMP Blood Test [facility] Start: 06-13-2024 Influenza vaccination [facility] Start: 01-02-2024 End: 01-01-2025 CT Chest wo and w Contrast CT Chest wo and w Contrast Imaging Routine 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) Expected: 01/02/2024, Expires: 01/01/2025 [facility] Work Phone: Comment on above: Expected: 01/02/2024 , Expires: 01/01/2025 Start: 06-13-2023 Influenza vaccination Influenza Vacc ine (#1) [facility] Start: 02-04-2023 Hypertension/CHF/CAD Annual BMP Blood Test Hypertension/CHF/CAD Annual BMP Blood Test [facility] Start: 06-13-2022 Influenza vaccination T [facility] Start: 06-04-2022 End: 06-04-2022 Patient encounter procedure 06/04/2022 Appointment Cardiology [facility] Start: 05-27-2022 End: 05-27-2022 Patient encounter procedure 05/27/2022 Office Visit Cardiology Tom Harrison MD [address] [place] [address] [facility] Start: 09-13-2021 Hypertension/CHF/CAD Annual BMP Blood Test Hypertension/CHF/CAD Annual BMP Blood Test [facility] Start: 06-13-2021 Influenza vaccination Influenza Vacc ine (#1) [facility] Start: 2020 Falls Risk Assessment Falls Risk Ass essment [facility] Start: 2020 Pneumococcal Vaccine : 65+ Years (1 - PCV) Pneumococcal Vaccine: 65+ Years (1 - PCV) [facility] Start: 2020 Pneumococcal Vaccine : 65+ Years (1 of 1 - PCV) Pneumococcal Vaccine: 65+ Years (1 of 1 - PCV) [facility] Start: 2020 Pneumococcal Vaccine : 65+ Years (1 of 1 - PPSV23) Pneumococcal Vaccine: 65+ Years (1 of 1 - PPSV23) [facility] Start: 11-20-2019 Abdominal aortic aneurysm screening Abdominal Aortic Aneurysm (AAA) Screen [facility] Start: 11-20-2019 Adolescent depressio n screening assessment Depression Screening [facility] Start: 11-20-2019 Hepatitis C screening Hepatitis C Sc reening [facility] Start: 11-20-2019 HIV screening HIV Screening [facility] Start: 11-20-2019 Lipid panel Cholesterol Sc reening (Lipid Panel) [facility] Start: 11-20-2019 Medicare Annual Wellness Visit Medicare Annual Wellness Visit [facility] Start: 11-20-2019 Screening for malign ant neoplasm of colon Colorectal Cancer Screening: Colonoscopy [facility] Start: 11-20-2019 Social Influencers o f Health Screening Social Influencers of Health Screening [facility] Start: 2015 Hepatitis B Vaccines (1 of 3 - Risk 3-dose series) Hepatitis B Vaccines (1 of 3 - Risk 3-dose series) [facility] Start: 2015 RSV Immunization Patients 60+ Years Old (1 - 1-dose 60+ series) RSV Immunization Patients 60+ Years Old (1 - 1-dose 60+ series) [facility] Start: 2005 Zoster Vaccines (1 o f 2) Zoster Vaccines (1 of 2) [facility] Start: 1974 DTaP,Tdap,and Td Vaccines (1 - Tdap) DTaP,Tdap,and Td Vaccines (1 - Tdap) [facility] Start: 1974 Hepatitis A Vaccines (1 of 2 - Risk 2-dose series) Hepatitis A Vaccines (1 of 2 - Risk 2-dose series) [facility] Start: 1974 Zoster Vaccines (1 o f 2) Zoster Vaccines (1 of 2) [facility] Start: 1967 COVID-19 Vaccine (1) COVID-19 Vaccin e (1) [facility] Start: 1961 Pneumococcal Vaccine : 65+ Years (1 of 2 - PCV) Pneumococcal Vaccine: 65+ Years (1 of 2 - PCV) [facility] Start: 1960 COVID-19 Vaccine (#1) COVID-19 Vacci ne (#1) [facility] Start: 1956 Hepatitis A Vaccines (1 of 2 - Risk 2-dose series) Hepatitis A Vaccines (1 of 2 - Risk 2-dose series) [facility] Start: 03-27-1956 COVID-19 Vaccine (#1) COVID-19 Vacci ne (#1) [facility] End: 05-27-2023 Transthoracic echocardiogram (TTE) complete with PRN contrast, bubble, strain, and 3D order panel Transthoracic echocardiogram (TTE) complete with PRN contrast, bubble, strain, and 3D order panel Echocardiography Routine Pre-operative cardiovascular exam, new EKG abnormalities c/w ischemia 1 Occurrences starting 05/27/2022 until 05/27/2023 [facility] Work Phone: Comment on above: 1 Occurrences starti ng 05/27/2022 until 05/27/2023 Payers Date Payer Category Payer Self-pay 2022 Medicare [id number] 2020 Unknown [employer] [id number] 2020-Present [id number] [employer] [address] [id number] 2020 Unknown [id number] 2020 Medicare MEDICARE MEDICAR E PART A & B [id number] 2020-Present [address] [place] [address] Medicare [id number] 1959 Medicare [id number] 1959 Unknown [id number] 1955 Unknown [id number] 1955 Unknown [id number] 1955 Unknown [id number] 1955 Unknown [id number] 3 1955 Unknown [id number] [id number] 3 1955 Unknown [id number] [id number] 1955 Unknown [id number] [id number] 1955 Unknown [id number] [id number] 1955 Unknown [id number] [id number] 1955 Unknown [id number] [id number] 1955 Unknown [id number] [id number] 1955 Unknown [id number] 1955 Unknown [id number] [id number] 1955 Unknown [id number] [id number] 9 1955 Unknown [id number] 9 Unknown [id number] Unknown [facility] [id number] Social History Date Type Detail Facility Tobacco smoking stat [facility] Unknown if ever smoked [facility] Start: 1955 [facility] Start: 05-27-2022 [facility] Start: 05-27-2022 Tobacco use and exposure Smokeless tobacco non-user [facility] Start: 05-27-2022 End: 01-02-2024 Alcohol intake Ex-drinker (finding) [facility] Start: 05-17-2022 End: 06-04-2022 Exposure to SARS-CoV-2 (event) Not sure [facility] Start: 10-27-2023 End: 04-28-2024 Tobacco smoking status Ex-smoker (finding) [facility] Sex Assigned At Male [facility] Start: 09-13-2021 Gender identity Identifies as male gender (finding) [facility] Start: 09-13-2021 Sexual orientation Heterosexual (fin ding) [facility] Functional Status Date Assessment Result Facility 04-28-2024 Functional Status N/A [facility] 04-07-2024 Functional Status N/A [facility] 01-21-2024 Functional Status N/A [facility] 10-27-2023 Functional Status N/A [facility] Clinical Notes 05-27-2022 to 04-28-2024 Dominga Wyatt RN - 04/13/2024 1:28 PM EDTRadiologyTom Harrison MD - 01/02/2024 2:30 PM Wilmer Harrison MD - 05/27/2022 11:20 AM EDTRadiologyRadiology Note Date & Type Note Facility 04-28-2024 Hospital Discharge instructions Patient Education 04/28/2024 10:43:15 Cystoscopy Cystoscopy Cystoscopy is a procedure that is used to help diagnose and sometimes treat conditions that affect the lower urinary tract. The lower urinary tract includes the bladder and the urethra. The urethra is the tube that drains urine from the bladder. Cystoscopy is done using a thin, tube-shaped instrument with a light and camera at the end (cystoscope). The cystoscope may be hard or flexible, depending on the goal of the procedure. The cystoscope is inserted through the urethra, into the bladder. Cystoscopy may be recommended if you have: Urinary tract infections that keep coming back. Blood in the urine (hematuria). An inability to control when you urinate (urinary incontinence) or an overactive bladder. Unusual cells found in a urine sample. A blockage in the urethra, such as a urinary stone. Painful urination. An abnormality in the bladder found during an intravenous pyelogram (IVP) or CT scan. Cystoscopy may also be done to remove a sample of tissue to be examined under a microscope (biopsy). Tell a health care provider about: Any allergies you have. All medicines you are taking, including vitamins, herbs, eye drops, creams, and tcrp-kse-ecuqbsd medicines. Any problems you or family members have had with anesthetic medicines. Any blood disorders you have. Any surgeries you have had. Any medical conditions you have. Whether you are or may be . What are the risks? Generally, this is a safe procedure. However, problems may occur, including: Infection. Bleeding. Allergic reactions to medicines. Damage to other structures or organs. What happens before the procedure? Medicines Ask your health care provider about: Changing or stopping your regular medicines. This is especially important if you are taking diabetes medicines or blood thinners. Taking medicines such as aspirin and ibuprofen. These medicines can thin your blood. Do not take these medicines unless your health care provider tells you to take them. Taking zlya-opb-tpqajdn medicines, vitamins, herbs, and supplements. Tests You may have an exam or testing, such as: X-rays of the bladder, urethra, or kidneys. CT scan of the abdomen or pelvis. Urine tests to check for signs of infection. General instructions Follow instructions from your health care provider about eating or drinking restrictions. Ask your health care provider what steps will be taken to help prevent infection. These steps may include: ?Washing skin with a germ-killing soap. ?Taking antibiotic medicine. Plan to have a responsible adult take you home from the hospital or clinic. What happens during the procedure? You will be given one or more of the following: ?A medicine to help you relax (sedative). ?A medicine to numb the area (local anesthetic). The area around the opening of your urethra will be cleaned. The cystoscope will be passed through your urethra into your bladder. Germ-free (sterile) fluid will flow through the cystoscope to fill your bladder. The fluid will stretch your bladder so that your health care provider can clearly examine your bladder correa. Your doctor will look at the urethra and bladder. Your doctor may take a biopsy or remove stones. The cystoscope will be removed, and your bladder will be emptied. The procedure may vary among health care providers and hospitals. What can I expect after the procedure? After the procedure, it is common to have: Some soreness or pain in your abdomen and urethra. Urinary symptoms. These include: ?Mild pain or burning when you urinate. Pain should stop within a few minutes after you urinate. This may last for up to 1 week. ?A small amount of blood in your urine for several days. ?Feeling like you need to urinate but producing only a small amount of urine. Follow these instructions at home: Medicines Take ohpg-pvr-udxbzta and prescription medicines only as told by your health care provider. If you were prescribed an antibiotic medicine, take it as told by your health care provider. Do not stop taking the antibiotic even if you start to feel better. General instructions Return to your normal activities as told by your health care provider. Ask your health care provider what activities are safe for you. If you were given a sedative during the procedure, it can affect you for several hours. Do not drive or operate machinery until your health care provider says that it is safe. Watch for any blood in your urine. If the amount of blood in your urine increases, call your health care provider. Follow instructions from your health care provider about eating or drinking restrictions. If a tissue sample was removed for testing (biopsy) during your procedure, it is up to you to get your test results. Ask your health care provider, or the department that is doing the test, when your results will be ready. Drink enough fluid to keep your urine pale yellow. Keep all follow-up visits. This is important. Contact a health care provider if: You have pain that gets worse or does not get better with medicine, especially pain when you urinate. You have trouble urinating. You have more blood in your urine. Get help right away if: You have blood clots in your urine. You have abdominal pain. You have a fever or chills. You are unable to urinate. Summary Cystoscopy is a procedure that is used to help diagnose and sometimes treat conditions that affect the lower urinary tract. Cystoscopy is done using a thin, tube-shaped instrument with a light and camera at the end. After the procedure, it is common to have some soreness or pain in your abdomen and urethra. Watch for any blood in your urine. If the amount of blood in your urine increases, call your health care provider. If you were prescribed an antibiotic medicine, take it as told by your health care provider. Do not stop taking the antibiotic even if you start to feel better. This information is not intended to replace advice given to you by your health care provider. Make sure you discuss any questions you have with your health care provider. Document Revised: 06/12/2022 Document Reviewed: 05/11/2021 [employer] Patient Education 2022 [employer]. Follow Up Care 04/19/2024 09:22:59 With:REGINA SANTANA, Bandar Dash, URL Address: [facility] [address] , [place] [address]- When: Unknown [facility] 04-28-2024 Note Patient Education Urology Cystoscopy Cystoscopy is a procedure that is used to help diagnose and sometimes treat conditions that affect the lower urinary tract. The lower urinary tract includes the bladder and the urethra. The urethra is the tube that drains urine from the bladder. Cystoscopy is done using a thin, tube-shaped instrument with a light and camera at the end (cystoscope). The cystoscope may be hard or flexible, depending on the goal of the procedure. The cystoscope is inserted through the urethra, into the bladder. Cystoscopy may be recommended if you have: ? Urinary tract infections that keep coming back. ? Blood in the urine (hematuria). ? An inability to control when you urinate (urinary incontinence) or an overactive bladder. ? Unusual cells found in a urine sample. ? A blockage in the urethra, such as a urinary stone. ? Painful urination. ? An abnormality in the bladder found during an intravenous pyelogram (IVP) or CT scan. Cystoscopy may also be done to remove a sample of tissue to be examined under a microscope (biopsy). Tell a health care provider about: ? Any allergies you have. ? All medicines you are taking, including vitamins, herbs, eye drops, creams, and gcma-ndp-zvswand medicines. ? Any problems you or family members have had with anesthetic medicines. ? Any blood disorders you have. ? Any surgeries you have had. ? Any medical conditions you have. ? Whether you are or may be . What are the risks? Generally, this is a safe procedure. However, problems may occur, including: ? Infection. ? Bleeding. ? Allergic reactions to medicines. ? Damage to other structures or organs. What happens before the procedure? Medicines Ask your health care provider about: ? Changing or stopping your regular medicines. This is especially important if you are taking diabetes medicines or blood thinners. ? Taking medicines such as aspirin and ibuprofen. These medicines can thin your blood. Do not take these medicines unless your health care provider tells you to take them. ? Taking gpgy-bjf-uckwnat medicines, vitamins, herbs, and supplements. Tests You may have an exam or testing, such as: ? X-rays of the bladder, urethra, or kidneys. ? CT scan of the abdomen or pelvis. ? Urine tests to check for signs of infection. General instructions ? Follow instructions from your health care provider about eating or drinking restrictions. ? Ask your health care provider what steps will be taken to help prevent infection. These steps may include: ? Washing skin with a germ-killing soap. ? Taking antibiotic medicine. ? Plan to have a responsible adult take you home from the hospital or clinic. What happens during the procedure? ? You will be given one or more of the following: ? A medicine to help you relax (sedative). ? A medicine to numb the area (local anesthetic). ? The area around the opening of your urethra will be cleaned. ? The cystoscope will be passed through your urethra into your bladder. ? Germ-free (sterile) fluid will flow through the cystoscope to fill your bladder. The fluid will stretch your bladder so that your health care provider can clearly examine your bladder correa. ? Your doctor will look at the urethra and bladder. Your doctor may take a biopsy or remove stones. ? The cystoscope will be removed, and your bladder will be emptied. The procedure may vary among health care providers and hospitals. What can I expect after the procedure? After the procedure, it is common to have: ? Some soreness or pain in your abdomen and urethra. ? Urinary symptoms. These include: ? Mild pain or burning when you urinate. Pain should stop within a few minutes after you urinate. This may last for up to 1 week. ? A small amount of blood in your urine for several days. ? Feeling like you need to urinate but producing only a small amount of urine. Follow these instructions at home: Medicines ? Take oguc-zby-shswmjg and prescription medicines only as told by your health care provider. ? If you were prescribed an antibiotic medicine, take it as told by your health care provider. Do not stop taking the antibiotic even if you start to feel better. General instructions ? Return to your normal activities as told by your health care provider. Ask your health care provider what activities are safe for you. ? If you were given a sedative during the procedure, it can affect you for several hours. Do not drive or operate machinery until your health care provider says that it is safe. ? Watch for any blood in your urine. If the amount of blood in your urine increases, call your health care provider. ? Follow instructions from your health care provider about eating or drinking restrictions. ? If a tissue sample was removed for testing (biopsy) during your procedure, it is up to you to get your test results. Ask your health care provider, (more content not included)... [facility] 04-13-2024 History of Present illness Narrative Patient called and is inquiring about recent antibiotic he was prescribed (levofloxacin 750mg x 10 days) and patient is concerned as he is reading that he should consult with provider prior to taking if have hx of aortic aneurysm, which patient does have hx of dilation ascending aorta which we are monitoring most recent CT in 01/2024 showed 4cm. FRS OOO, any insight? Thanks documented in this encounter [facility] 04-07-2024 Hospital Discharge instructions Patient Education 04/07/2024 07:44:02 Transrectal Ultrasound-Guided Prostate Biopsy, Care After Transrectal Ultrasound-Guided Prostate Biopsy, Care After The following information offers guidance on how to care for yourself after your procedure. Your health care provider may also give you more specific instructions. If you have problems or questions, contact your health care provider. What can I expect after the procedure? After the procedure, it is common to have: Pain and discomfort near your rectum, especially while sitting. [place]-colored urine due to small amounts of blood in your urine. A burning feeling while urinating. Blood in your stool (feces) or bleeding from your rectum. Blood in your semen. Follow these instructions at home: Medicines Take bsao-icx-lsaqskg and prescription medicines only as told by your health care provider. If you were given a sedative during your procedure, it can affect you for several hours. Do not drive or operate machinery until your health care provider says that it is safe. If you were prescribed an antibiotic medicine, take it as told by your health care provider. Do not stop using the antibiotic even if you start to feel better. Activity Return to your normal activities as told by your health care provider. Ask your health care provider what activities are safe for you. Ask your health care provider when it is okay for you to resume sexual activity. You may have to avoid lifting. Ask your health care provider how much you can safely lift. General instructions Drink enough fluid to keep your urine pale yellow. Watch your urine, stool, and semen for new or increased bleeding. Keep all follow-up visits. This is important. Contact a health care provider if: You have any of the following: ?Blood clots in your urine or stool. ?Blood in your urine more than 2 weeks after the procedure. ?Blood in your semen more than 2 months after the procedure. ?New or increased bleeding in your urine, stool, or semen. ?Severe pain in your abdomen. Your urine smells bad or unusual. You have trouble urinating. Your lower abdomen feels firm. You have problems getting an erection. You have nausea or you vomit. Get help right away if: You have a fever or chills. This could be a sign of infection. You have bright red urine. You have severe pain that does not get better with medicine. You cannot urinate. Summary After this procedure, it is common to have pain and discomfort around your rectum, especially while sitting. You may have blood in your urine and stool after the procedure. It is common to have blood in your semen after this procedure. Get help right away if you have a fever or chills. This could be a sign of infection. This information is not intended to replace advice given to you by your health care provider. Make sure you discuss any questions you have with your health care provider. Document Revised: 03/25/2022 Document Reviewed: 03/25/2022 [employer] Patient Education 2022 logolineup. Follow Up Care 03/16/2024 12:02:50 With:REGINA SANTANA, Bandar Dash, URL Address: [facility] [address] , [place] [address]- When: Unknown [facility] 02-24-2024 Evaluation + Plan note Future Scheduled TestsUS Prostate, [facility] 02/24/24 [facility] 01-21-2024 Hospital Discharge instructions Patient Education 01/21/2024 17:26:37 Transrectal Ultrasound-Guided Prostate Biopsy, Care After Transrectal Ultrasound-Guided Prostate Biopsy, Care After The following information offers guidance on how to care for yourself after your procedure. Your health care provider may also give you more specific instructions. If you have problems or questions, contact your health care provider. What can I expect after the procedure? After the procedure, it is common to have: Pain and discomfort near your rectum, especially while sitting. [place]-colored urine due to small amounts of blood in your urine. A burning feeling while urinating. Blood in your stool (feces) or bleeding from your rectum. Blood in your semen. Follow these instructions at home: Medicines Take lxwz-rhw-xgbixhn and prescription medicines only as told by your health care provider. If you were given a sedative during your procedure, it can affect you for several hours. Do not drive or operate machinery until your health care provider says that it is safe. If you were prescribed an antibiotic medicine, take it as told by your health care provider. Do not stop using the antibiotic even if you start to feel better. Activity Return to your normal activities as told by your health care provider. Ask your health care provider what activities are safe for you. Ask your health care provider when it is okay for you to resume sexual activity. You may have to avoid lifting. Ask your health care provider how much you can safely lift. General instructions Drink enough fluid to keep your urine pale yellow. Watch your urine, stool, and semen for new or increased bleeding. Keep all follow-up visits. This is important. Contact a health care provider if: You have any of the following: ?Blood clots in your urine or stool. ?Blood in your urine more than 2 weeks after the procedure. ?Blood in your semen more than 2 months after the procedure. ?New or increased bleeding in your urine, stool, or semen. ?Severe pain in your abdomen. Your urine smells bad or unusual. You have trouble urinating. Your lower abdomen feels firm. You have problems getting an erection. You have nausea or you vomit. Get help right away if: You have a fever or chills. This could be a sign of infection. You have bright red urine. You have severe pain that does not get better with medicine. You cannot urinate. Summary After this procedure, it is common to have pain and discomfort around your rectum, especially while sitting. You may have blood in your urine and stool after the procedure. It is common to have blood in your semen after this procedure. Get help right away if you have a fever or chills. This could be a sign of infection. This information is not intended to replace advice given to you by your health care provider. Make sure you discuss any questions you have with your health care provider. Document Revised: 03/25/2022 Document Reviewed: 03/25/2022 [employer] Patient Education 2022 logolineup. 01/21/2024 17:26:35 Transrectal Ultrasound-Guided Prostate Biopsy Transrectal Ultrasound-Guided Prostate Biopsy A transrectal ultrasound-guided prostate biopsy is a procedure to remove samples of prostate tissue for testing. The prostate is a walnut-sized gland that is located below the bladder and in front of the rectum. During this procedure, a small device (probe) is lubricated and put inside the rectum. The probe sends out sound waves that make a picture of the prostate and surrounding tissues (transrectal ultrasound). The images are used to help guide the process of removing the samples. The samples are taken to a lab to be checked for prostate cancer. This procedure is usually done to evaluate the prostate gland of men who have raised (elevated) levels of prostate-specific antigen (PSA), which can be a sign of prostate cancer or prostate enlargement related to aging (benign prostatic hyperplasia, or BPH). Tell a health care provider about: Any allergies you have. All medicines you are taking, including vitamins, herbs, eye drops, creams, and vlhg-ahs-vjsjsit medicines. Any problems you or family members have had with anesthetic medicines. Any bleeding problems you have. Any surgeries you have had. Any medical conditions you have. Any prostate infections you have had. What are the risks? Generally, this is a safe procedure. However, problems may occur, including: Prostate infection. Bleeding from the rectum. Blood in the urine. Allergic reactions to medicines. Damage to surrounding structures such as blood vessels, organs, or muscles. Difficulty passing urine. Nerve damage. This is usually temporary. What happens before the procedure? Medicines Ask your health care provider about: Changing or stopping your regular medicines. This is especially important if you are taking diabetes medicines or blood thinners. Taking medicines such as aspirin and ibuprofen. These medicines can thin your blood. Do not take these medicines unless your health care provider tells you to take them. Taking xxwd-vks-ovxlefr medicines, vitamins, herbs, and supplements. General instructions Follow instructions from your health care provider about eating and drinking. In most instances, you will not need to stop eating and drinking completely before the procedure. You will be given an enema. During an enema, a liquid is injected into your rectum to clear out waste. You may have a blood or urine sample taken. Ask your health care provider what steps will be taken to help prevent infection. These steps may include: ?Washing skin with a germ-killing soap. ?Taking antibiotic medicine. If you will be going home right after the procedure, plan to have a responsible adult: ?Take you home from the hospital or clinic. You will not be allowed to drive. ?Care for you for the time you are told. What happens during the procedure? An IV will be inserted into one of your veins. You will be given one or both of the following: ?A medicine to help you relax (sedative). ?A medicine to numb the area (local anesthetic). You will be placed on your left side, and your knees will be bent toward your chest. A probe with lubricated gel will be placed into your rectum, and images will be taken of your prostate and surrounding structures. Numbing medicine will be injected into your prostate. A biopsy needle will be inserted through your rectum or perineum and guided to your prostate using the ultrasound images. Prostate tissue samples will be removed, and the needle and probe will then be removed. The biopsy samples will be sent to a lab to be tested. The procedure may vary among health care providers and hospitals. What happens after the procedure? Your blood pressure, heart rate, breathing rate, and blood oxygen level will be monitored until you leave the hospital or clinic. You may have some discomfort in the rectal area. You will be given pain medicine as needed. If you were given a sedative during the procedure, it can affect you for several hours. Do not drive or operate machinery until your health care provider says that it is safe. It is up to you to get the results of your procedure. Ask your health care provider, or the department that is doing the procedure, when your results will be ready. Keep all follow-up visits. This is important. Summary A transrectal ultrasound-guided biopsy removes samples of tissue from your prostate using ultrasound-guided sound waves to help guide the process. This procedure is usually done to evaluate the prostate gland of men who have raised (elevated) levels of prostate-specific antigen (PSA), which can be a sign of prostate cancer or prostate enlargement related to aging. After your procedure, you may feel some discomfort in the rectal area. Plan to have a responsible adult take you home from the hospital or clinic, and follow up with your health care provider for your results. This information is not intended to replace advice given to you by your health care provider. Make sure you discuss any questions you have with your health care provider. Document Revised: 03/25/2022 Document Reviewed: 03/25/2022 [employer] Patient Education 2022 logolineup. Follow Up Care 10/27/2023 10:13:19 With:REGINA SANTANA, Bandar Dash, URL Address: [facility] [address] , [place] [address]- [phone] When: Unknown Comments:sched TRUS/bx [facility] 01-02-2024 Note Sinus Rhythm Low voltage in precordial leads. -Poor R-wave progression -may be secondary to pulmonary disease consider old anterior infarct. -T-abnormality -Possible inferior apical ischemia. ABNORMAL [facility] 01-02-2024 History of Present illness Narrative Images from the original note were not included. CARDIOLOGY OUTPATIENT FOLLOW-UP NOTE Impression and Recommendations: Ischemic heart disease: Patient appears to be doing well. Denies any chest pain or chest pressure. Noninvasive cardiac testing done in 2021 came back negative. Strongly recommended regular physical activity otherwise continue current medical management. Hypertension: Blood pressure checked was 136/82 mmHg. No changes in medications. Hyperlipidemia: Continue current dose of statin. Lipid profile is being managed by primary care physician's office. Erectile dysfunction: Patient was again reminded that he should not be taking nitroglycerin if he has Viagra on board. Dilatation of ascending aorta: Patient had echocardiogram performed in 2021 which revealed ascending aorta measuring at 4.2 cm. I will get a CTA to define its size now. This will be more accurate. If CT scan is stable and patient remains asymptomatic follow-up with us in 1 year. Tom Harrison MD 01/02/24 2:17 PM EDT [facility] Education Coordinator [facility] Thank you for this consultation. If you have any questions, please feel free to call. First Call Mon-Fri [id number]: [facility] [place] [phone] [facility] [place] [phone] [facility] [phone] After hours/Weekends: [phone] For listed Attendings On-Call at each site click here Patient Name : Daniel Clemente 1955 Date of Service: 01/02/24 History of Present Illness: Mr. Daniel Clemente is a(n) 68 y.o. male who presents to outpatient follow-up visit. Last time I saw him was in 2018. He has a history of ischemic heart disease status post PCI/stent due to non-ST elevation myocardial infarction in 2013 placed in posterolateral branch of the right coronary artery. At that time patient had normal left main and left circumflex artery. LAD had moderate disease. Patient has been doing well. Denies any chest pain or chest pressure. No shortness of breath, orthopnea or PND. Patient was seen by us in May 2022 and was supposed to undergo gallbladder surgery. There were some T wave inversions on the ECG which were new hence stress test and echocardiogram were done at that time which were negative. Unfortunately is sedentary in day-to-day activity especially during winter months. He denies any chest pain or chest pressure. No shortness of breath, orthopnea or PND. Patient Active Problem List Diagnosis Coronary artery disease Angina pectoris (CMS/HCC) Hypertension Hyperlipidemia Abnormal radiographic examination Cholelithiasis Hepatitis C virus infection Lower urinary tract symptoms due to benign prostatic hyperplasia Obstructive uropathy Thyroid nodule H/O non-ST elevation myocardial infarction (NSTEMI) Past Medical History: Diagnosis Date Angina pectoris (CMS/HCC) Coronary artery disease H/O non-ST elevation myocardial infarction (NSTEMI) Hyperlipidemia Hypertension I have personally reviewed the patient's past medical, surgical and family history and made changes as appropriate. Cardiac studies: Cardiac stress test performed May 2022: Interpretation Summary The patient was stressed according to the PARISH protocol for 09:57 min:s, achieving a work level of Max. METS: 11.2. The resting heart rate of 56 bpm estrada to a maximal heart rate of 115 bpm. This value represents 74 % of the maximal, age-predicted heart rate. The resting blood pressure of 157/93 mmHg , estrada to a maximum blood pressure of 205/105 mmHg. Stress ECG was normal. LV perfusion is abnormal. There is a left ventricular perfusion defect that is medium in size present in the mid to basal lateral location(s) that is predominantly fixed. The defect appears to be an infarction and limited doe-infarct ischemia. Abnormal basal lateral wall motion with overall normal left ventricular systolic function by quantitative ejection fraction analysis. Cardiac echocardiogram performed June 03: Interpretation Summary Left ventricular size and systolic function are normal; LVEF 55-60%. Normal global longitudinal strain at -21.2%. No regional wall motion abnormalities. Right ventricular size is upper normal with normal systolic function. Mild mitral regurgitation. Ascending aorta is mildly dilated at 4.2 cm. No pericardial effusion. Cardiac catheterization 2013 revealed severe disease in the posterolateral branch of the right coronary artery which was stented with the help of a drug-eluting stent. A 2.5 x 23 mm Xience drug-eluting stent was placed postdilated to 2.75 mm final diameter. Mild disease in the proximal LAD and 50% lesion in the mid LAD. Normal left main and left circumflex arteries. Normal LV systolic function. Home Medications amLODIPine (NORVASC) 5 mg tablet Take 1 tablet (5 mg total) by mouth 1 (one) time each day. aspirin 81 mg EC tablet Take 81 mg by mouth 1 (one) time each day. atorvastatin (LIPITOR) 40 mg tablet Take 1 tablet (40 mg total) by mouth at bedtime. carvediloL (COREG) 6.25 mg tablet Take 1 tablet (6.25 mg total) by mouth 2 (two) times a day with meals. tadalafiL (CIALIS) 5 mg tablet Take 1 tablet by mouth as needed. Review Of Systems: Constitutional: Denies fevers, denies chills, denies sweats, denies weight change Eye: Denies recent visual problems, denies redness, denies discharge ENMT: Denies ear pain, denies nasal congestion, denies sore throat Cardiovascular: Denies chest pain, denies palpitations, denies fainting, denies pressure, denies swelling Respiratory: Denies shortness of breath, denies cough Gastrointestinal: Denies nausea, denies vomiting, denies diarrhea, denies constipation, denies indigestion Genitourinary: Denies incontinence, denies frequency, denies urgency, denies nocturia, denies hematuria Musculoskeletal: Denies back pain, denies neck pain, denies joint pain, denies muscle pain, denies decreased range of motion Integumentary: Denies rash, denies itching, denies abrasions Neurologic: Denies numbness, denies tingling, denies headaches Psychiatric: Denies anxiety, denies depression Endocrine: Denies excessive thirst, denies excessive hunger Hematologic/Lymphatic: Denies bruising tendency, denies swollen lymph glands Allergic and Immunologic: No pruritus. No Swelling Physical Exam: Vitals: 01/02/24 1356 BP: 136/82 Pulse: 66 Resp: 16 Wt Readings from Last 3 Encounters: 01/02/24 90.6 kg (199 lb 12.8 oz) 06/04/22 88 kg (194 lb 0.1 oz) 06/04/22 88 kg (194 lb) Body mass index is 27.06 kg/m . Constitutional: NAD, well nourished, appears stated age HEENT: Normocephalic, atraumatic, Hearing grossly normal, No nasal discharge Neck: Supple w/ no adenopathy, masses, or thyroid enlargement. Trachea midline. JVP normal Heart: normal rate, regular rhythm, no murmurs, no rub, no gallop, no S3/S4, no JVD Lungs: Lungs clear to auscultation bilaterally, no wheezes, rales, or rhonchi Abdomen: soft and non-tender, no masses or organomegaly, bowel sounds present M/S: Gait not assessed, muscular strength and tone normal Extremities: no clubbing, cyanosis, or edema Neuro: A&Ox3. MAEx4, no focal deficits Skin: Warm, dry, no rashes or lesions Psych: Appropriate, calm, cooperative; no evidence of impaired judgment Labs: No results found for: WBC , HGB , HCT , MCV , PLT , GLUCOSE , CALCIUM , NA , K , CO2 , CL , BUN , CREATININE , ALT , AST , GGT , ALKPHOS , BILITOT , TSH , INR , PTT , HGBA1C , CHOL , TRIG , HDL , LDLCALC , CKTOTAL , TROPONINI , HSTROPI , BNP \LAST BMP: No results found for: GLUCOSE , CALCIUM , NA , K , CO2 , CL , BUN , CREATININE LASTCBC: No results found for: WBC , HGB , HCT , MCV , PLT No results for input(s): HGBA1C in the last 72 hours. No results for input(s): CHOL , HDL , LDL , TRIG in the last 72 hours. No lab exists for component: CHOLHDLRAT , LDLHDLRAT ECG tracing(s) personally reviewed normal sinus rhythm, nonspecific ST-T abnormalities. documented in this encounter [facility] 01-02-2024 Note Sinus Rhythm Low voltage in precordial leads. -Poor R-wave progression -may be secondary to pulmonary disease consider old anterior infarct. -T-abnormality -Possible inferior apical ischemia. ABNORMAL [facility] 10-27-2023 Hospital Discharge instructions Patient Education 10/27/2023 10:08:19 Prostatitis Prostatitis Prostatitis is swelling or inflammation of the prostate gland, also called the prostate. This gland is about 1.5 inches wide and 1 inch high, and it is involved in making semen. The prostate is located below a man's bladder, in front of the rectum. There are four types of prostatitis: Chronic prostatitis (CP), also called chronic pelvic pain syndrome (CPPS). This is the most common type of prostatitis. It is associated with increased muscle tone in the area between the hip bones (pelvic area), around the prostate. This type is also known as a pelvic floor disorder. Chronic bacterial prostatitis. This type usually results from an acute bacterial infection in the prostate gland that keeps coming back or has not been treated properly. The symptoms are less severe than those caused by acute bacterial prostatitis, which lasts a shorter time. Asymptomatic inflammatory prostatitis. This type does not have symptoms and does not need treatment. This is diagnosed when tests are done for other disorders of the urinary tract or reproductive tract. Acute bacterial prostatitis. This type starts quickly and results from an acute bacterial infection in the prostate gland. It is usually associated with a bladder infection, high fever, and chills. This is the least common type of prostatitis. What are the causes? Bacterial prostatitis is caused by an infection from bacteria. Chronic nonbacterial prostatitis may be caused by: Factors related to the nervous system. This system includes thebrain, spinal cord, and nerves. An autoimmune response. This happens when the body's disease-fighting system attacks healthy tissue in the body by mistake. Psychological factors. These have to do with how the mind works. The causes of the other types of prostatitis are usually not known. What are the signs or symptoms? Symptoms of this condition depend on the type of prostatitis you have. Acute bacterial prostatitis Symptoms may include: Pain or burning during urination. Frequent and sudden urges to urinate. Trouble starting to urinate. Fever. Chills. Pain in your muscles or joints, lower back, or lower abdomen. Other types of prostatitis Symptoms may include: Sudden urges to urinate, or urinating often. Trouble starting to urinate. Weak urine stream. Dribbling after urination. Discharge coming from the penis. Pain in the testicles, the penis, or the tip of the penis. Pain in the area in front of the rectum and below the scrotum (perineum). Pain when ejaculating. How is this diagnosed? This condition may be diagnosed based on: A physical and medical exam. A digital rectal exam. For this, the health care provider may use a finger to feel the prostate. A urine test to check for bacteria. A semen sample or blood tests. Ultrasound. Urodynamic tests to check how your body handles urine. Cystoscopy to look inside your bladder or inside the part of your body that drains urine from the bladder (urethra). How is this treated? Treatment for this condition depends on the type of prostatitis. Treatment may involve: Medicines to relieve pain or inflammation, or to help relax your muscles. Physical therapy. Heat therapy. Biofeedback. These techniques help you control certain body functions. Relaxation exercises. Antibiotic medicine, if your condition is caused by bacteria. Sitz baths. These warm water baths help to relax your pelvic floor muscles, which helps to relieve pressure on the prostate. Follow these instructions at home: Medicines Take vwyr-hka-lnmxooz and prescription medicines only as told by your health care provider. If you were prescribed an antibiotic medicine, take it as told by your health care provider. Do not stop using the antibiotic even if you start to feel better. Managing pain and swelling Take sitz baths as directed by your health care provider. For a sitz bath, sit in warm water that is deep enough to cover your hips and buttocks. If directed, apply heat to the affected area as often as told by your health care provider. Use the heat source that your health care provider recommends, such as a moist heat pack or a heating pad. ?Place a towel between your skin and the heat source. ?Leave the heat on for 20 30 minutes. ?Remove the heat if your skin turns bright red. This is especially important if you are unable to feel pain, heat, or cold. You may have a greater risk of getting burned. General instructions Do exercises as told by your health care provider, if you were prescribed physical therapy, biofeedback, or relaxation exercises. Keep all follow-up visits as told by your health care provider. This is important. Where to find more information National [place] of Diabetes and Digestive and Kidney Diseases: https://www.niddk.nih.gov Contact a health care provider if: Your symptoms get worse. You have a fever. Get help right away if: You have chills. You feel light-headed or feel like you may faint. You cannot urinate. You have blood or blood clots in your urine. Summary Prostatitis is swelling or inflammation of the prostate gland. Treatment for this condition depends on the type of prostatitis. Take pujr-ktx-zfpsfud and prescription medicines only as told by your health care provider. Get help right away of you have chills, feel light-headed, feel like you may faint, cannot urinate, or have blood or blood clots in your urine. This information is not intended to replace advice given to you by your health care provider. Make sure you discuss any questions you have with your health care provider. Document Revised: 11/03/2020 Document Reviewed: 11/03/2020 [employer] Patient Education 2022 [employer]olineup. Follow Up Care 07/18/2023 13:48:10 With:REGINA SANTANA, Bandar Dash, ERICK Address: [facility] [address], [place] [address]- [phone] When: Unknown Comments:3 mos(PSA after completing 3wk abx course) [facility] Karlo 10-27-2023 Note Chief Complaint referral for microhematuria and chronic suprapubic pain HPI Staff 68 yo male new pt referred by Dr. Yeh for microscopic hematuria and chronic suprapubic pain. Never seen in our office before (verified on [employer]). Dysuria: burning a couple of times in the past month Incomplete bladder emptying: pt feels he may not be emptying always Hematuria: no Frequency: no Urgency: yes Nocturia: 2-3x for a couple of years Stream: weaker at times with little straining Leaking: no Post void dripping: yes sometimes Wearing pads/ Depends: no Urge incontinence: no Stress incontinence: no Incontinence without Sensory Awareness: no Abdominal pain: suprapubic pain off and on. On the left side Flank pain: no Sexual complaints: no History of Present Illness Tests reviewed: reviewed UAs, referral records, PSAs, CT scan I have reviewed the previous health record information and history for this patient from external providers. I have reviewed and verified the staff HPI to be accurate for this encounter. Review of Systems PHQ Score Initial Depression Screen Score: 0 SCORE ROS - Provider Constitutional: denies weight loss, denies hot flashes. Eyes: denies eye problems. Gastrointestinal: denies nausea, denies vomiting. Cardiovascular: denies chest pain or angina. Integumentary: no dryness Musculoskeletal: denies musculoskeletal symptoms. ENMT: denies otolaryngeal symptoms. Respiratory: no shortness of breath. Heme/Lymph: denies easy bleeding tendency, denies easy bruising tendency. Psychiatric: no confusion, no anxiety. Genitourinary: See HPI. Physical Exam Vitals & Measurements HR: 80(Peripheral) RR: 16 BP: 136/86 HT: 72 in HT: 183 cm WT: 86.5 kg WT: 190.3 lb BMI: 25.83 General Appearance: alert, no distress, well nourished, well developed male. Head: normocephalic . Eyes: normal orbit and globe. ENMT: normal examination of external ears. Chest: Lungs CTA, respirations non labored. Cardiovascular: regular rate and rhythm. Abdomen: soft, non distended, no tenderness, no mass or organomegaly, no hernia. Genitourinary: normal scrotum, normal testes, normal urethra, normal epididymis, normal vas deferens/spermatic cord. Flank Pain: none. Bladder: nonpalpable. Penis: normal shaft, normal glans. Lymph Nodes: unremarkable palpation of the cervical area. Skin: warm, dry, no bruising. Psychiatric: cooperative, affect appropriate for age, normal judgement, euthymic mood. Assessment/Plan Daniel is a 68 yo male new pt referred by Dr. Gary Yeh for microscopic hematuria. 1. BPH with obstruction/lower urinary tract symptoms (N40.1: Benign prostatic hyperplasia with lower urinary tract symptoms) States he took Tamsulosin per PCP but stopped due to minimal sx improvement. Was then given Tadalafil 5mg qd and is unsure if this improved his sxs. Gets up 2-3x/night to void but admits he does not limit his fluid intake prior to bedtime. Weaker stream, occasionally strains. Does not always feel he empties completely. PVR today 89cc. Discussed alternative med options. Pt agrees to try new meds. -Begin dutasteride 0.5mg qd. and alfuzosin 10mg qd. Rx sent to [facility]. Discussed the medication side effects, and the patient will monitor closely for these, as well as for symptom improvement. If severe side effects occur, the medication should be stopped and the office notified. 2. Prostatitis (N41.9: Inflammatory disease of prostate, unspecified) Reports he has been having some suprapubic pain. UA today shows trace leuks. Has been having some burning with urination over the past few months. The patient likely has prostatitis. He was advised about the different possible causes of bacterial and non-bacterial prostatitis. He needs to complete the course of prescribed antibiotics. He understands that the symptoms improve if he decreases his exercise and activity level. Anti-inflammatory medicines can also be helpful, as well as frequent ejaculations. Hot baths are also helpful in easing the discomfort. -Take doxycycline 100mg bid x3wks. 3. Elevated PSA (R97.20: Elevated prostate specific antigen [PSA]) PSA 12/15/20 - 4.07 02/04/22 - 3.88 07/26/23 - 4.56 Had KARY done by prior PCP. KARY not done today due to prostatitis sxs. PCP checks PSA. Discussed PSA results. Has increased since prior. Discussed this may be due to infection given UA today shows trace leuks. -See #2 -Check PSA after completing abx -KARY at next appt 4. Asymptomatic microscopic hematuria (R31.21: Asymptomatic microscopic hematuria) UA 07/16/23 - positive blood. possibly from infection. Denies ever seeing any visible blood. UA today negative for blood. 5. Family history of prostate cancer in father (Z80.42: Family history of malignant neoplasm of prostate) Father passed from [place]. 6. Former smoker (Z87.891: Personal history of nicotine dependence) Smoked cigarettes 1975 - 2006. Risk factor for urothelial ca. 7. Aspi (more content not included)... [facility] Comment on above: Result Comment: Elec tronically Signed By: Bandar ROGERS MD\.br\Date and Time Signed: 10/27/23 10:13 EST\.br\Electronically Co-Signed By: Gretel Yeh\.br\Date and Time Co-Signed: 10/27/23 10:09 EST 05-27-2022 History of Present illness Narrative Images from the original note were not included. CARDIOLOGY OUTPATIENT FOLLOW-UP NOTE Impression and Recommendations: Ischemic heart disease: She is denying any chest pain or chest pressure. Preoperative cardiac risk stratification: I am concerned about the change in ECG showing peaked T waves. He does have history of ischemic heart disease. I am going to recommend getting an echocardiogram and a treadmill Cardiolite stress test. If normal then he will be at low risk for perioperative cardiac events. Hypertension: Blood pressure is controlled at home. Hyperlipidemia: Continue current dose of statin. Erectile dysfunction: Patient was again reminded that he should not be taking nitroglycerin if he has Viagra on board. Tom Harrison MD 05/27/22 12:34 PM EDT [facility] Education Coordinator [facility] Thank you for this consultation. If you have any questions, please feel free to call. First Call Mon-Fri [phone]: [facility] [phone] [facility] [place] [phone] [facility] [phone] After hours/Weekends: [phone] For listed Attendings On-Call at each site click here Patient Name : Daniel Clemente 1955 Date of Service: 05/27/22 History of Present Illness: Mr. Daniel Clemente is a(n) 66 y.o. male who presents to outpatient follow-up visit. Last time I saw him was in 2019. He has a history of ischemic heart disease status post PCI/stent due to non-ST elevation myocardial infarction in 2013 placed in posterolateral branch of the right coronary artery. At that time patient had normal left main and left circumflex artery. LAD had moderate disease. Patient has been doing well. Denies any chest pain or chest pressure. No shortness of breath, orthopnea or PND. Patient Active Problem List Diagnosis Coronary artery disease Angina pectoris (CMS/HCC) Hypertension Hyperlipidemia Abnormal radiographic examination Cholelithiasis Hepatitis C virus infection Lower urinary tract symptoms due to benign prostatic hyperplasia Obstructive uropathy Thyroid nodule H/O non-ST elevation myocardial infarction (NSTEMI) Past Medical History: Diagnosis Date Angina pectoris (CMS/HCC) Coronary artery disease H/O non-ST elevation myocardial infarction (NSTEMI) Hyperlipidemia Hypertension I have personally reviewed the patient's past medical, surgical and family history and made changes as appropriate. Cardiac studies: Cardiac catheterization 2013 revealed severe disease in the posterolateral branch of the right coronary artery which was stented with the help of a drug-eluting stent. A 2.5 x 23 mm Xience drug-eluting stent was placed postdilated to 2.75 mm final diameter. Mild disease in the proximal LAD and 50% lesion in the mid LAD. Normal left main and left circumflex arteries. Normal LV systolic function. Since 2013 patient has not had any repeat cardiac ischemic testing. Home Medications amLODIPine (NORVASC) 5 mg tablet Take 1 tablet (5 mg total) by mouth 1 (one) time each day. aspirin 81 mg EC tablet Take 81 mg by mouth 1 (one) time each day. atorvastatin (LIPITOR) 40 mg tablet Take 1 tablet (40 mg total) by mouth at bedtime. carvediloL (COREG) 6.25 mg tablet Take 1 tablet (6.25 mg total) by mouth 2 (two) times a day with meals. tadalafiL (CIALIS) 5 mg tablet Take 1 tablet by mouth as needed. Review Of Systems: Constitutional: Denies fevers, denies chills, denies sweats, denies weight change Eye: Denies recent visual problems, denies redness, denies discharge ENMT: Denies ear pain, denies nasal congestion, denies sore throat Cardiovascular: Denies chest pain, denies palpitations, denies fainting, denies pressure, denies swelling Respiratory: Denies shortness of breath, denies cough Gastrointestinal: Denies nausea, denies vomiting, denies diarrhea, denies constipation, denies indigestion Genitourinary: Denies incontinence, denies frequency, denies urgency, denies nocturia, denies hematuria Musculoskeletal: Denies back pain, denies neck pain, denies joint pain, denies muscle pain, denies decreased range of motion Integumentary: Denies rash, denies itching, denies abrasions Neurologic: Denies numbness, denies tingling, denies headaches Psychiatric: Denies anxiety, denies depression Endocrine: Denies excessive thirst, denies excessive hunger Hematologic/Lymphatic: Denies bruising tendency, denies swollen lymph glands Allergic and Immunologic: No pruritus. No Swelling Physical Exam: Vitals: 05/27/22 1106 BP: 136/79 Pulse: 62 Wt Readings from Last 3 Encounters: 05/27/22 88 kg (194 lb) 05/02/21 87.2 kg (192 lb 3.2 oz) 09/03/19 81.2 kg (178 lb 15.9 oz) Body mass index is 26.31 kg/m . Constitutional: NAD, well nourished, appears stated age HEENT: Normocephalic, atraumatic, Hearing grossly normal, No nasal discharge Neck: Supple w/ no adenopathy, masses, or thyroid enlargement. Trachea midline. JVP normal Heart: normal rate, regular rhythm, no murmurs, no rub, no gallop, no S3/S4, no JVD Lungs: Lungs clear to auscultation bilaterally, no wheezes, rales, or rhonchi Abdomen: soft and non-tender, no masses or organomegaly, bowel sounds present M/S: Gait not assessed, muscular strength and tone normal Extremities: no clubbing, cyanosis, or edema Neuro: A&Ox3. MAEx4, no focal deficits Skin: Warm, dry, no rashes or lesions Psych: Appropriate, calm, cooperative; no evidence of impaired judgment Labs: No results found for: WBC, HGB, HCT, MCV, PLT, GLUCOSE, CALCIUM, NA, K, CO2, CL, BUN, CREATININE, ALT, AST, GGT, ALKPHOS, BILITOT, TSH, INR, PTT, HGBA1C, CHOL, TRIG, HDL, LDLCALC, CKTOTAL, TROPONINI, HSTROPI, BNP \LAST BMP: No results found for: GLUCOSE, CALCIUM, NA, K, CO2, CL, BUN, CREATININE LASTCBC: No results found for: WBC, HGB, HCT, MCV, PLT No results for input(s): HGBA1C in the last 72 hours. No results for input(s): CHOL, HDL, LDL, TRIG in the last 72 hours. No lab exists for component: CHOLHDLRAT, LDLHDLRAT ECG tracing(s) personally reviewed normal sinus rhythm, peaked T waves which are diffuse. This is a change from before. . documented in this encounter [facility] Evaluation + Plan note Future Appointments Appointment Date:02/02/2024 08:45:00 AM Scheduled Provider:Bandar ROGERS MD Location:[facility] Appointment Type:URO Office Visit Diagnostic Tests PendingPSA Total 10/27/23 [facility] Evaluation + Plan note Future Appointments Appointment Date:03/15/2024 03:00:00 PM Scheduled Provider:Bandar ROGERS MD Location:[facility] Appointment Type:URO Office Visit [facility] Evaluation + Plan note Future Appointments Appointment Date:04/23/2024 09:15:00 AM Scheduled Provider:Bandar ROGERS MD Location:[facility] Appointment Type:URO Office Visit Future Scheduled TestsUS Prostate, [facility] 02/24/24 [facility] Evaluation + Plan note Future Appointments Appointment Date:04/23/2024 09:15:00 AM Scheduled Provider:Bandar ROGERS MD Location:[facility] Appointment Type:URO Office Visit Diagnostic Tests PendingProstate Histology ([facility]) 04/07/24 Future Scheduled TestsUS Prostate, [facility] 02/24/24 [facility] Evaluation note Diagnosis Coronary arteriosclerosis- Primary Coronary atherosclerosis of unspecified type of vessel, [place] or graft documented in this encounter [facility] Diagnosis Coronary arteriosclerosis Coronary atherosclerosis of unspecified type of vessel, [place] or graft documented [facility] this [facility]* Diagnosis Hypertension, unspecified type- Primary Pre-operative cardiovascular exam, new EKG abnormalities c/w ischemia Pre-operative cardiovascular examination documented in this encounter [facility]* Diagnosis Pre-operative cardiovascular exam, new EKG abnormalities c/w ischemia Pre-operative cardiovascular examination documented in this encounter [facility]* Diagnosis Coronary arteriosclerosis Coronary atherosclerosis of unspecified type of vessel, [place] or graft documented in this encounter [facility]* Diagnosis Coronary arteriosclerosis Coronary atherosclerosis of unspecified type of vessel, [place] or graft documented in this encounter [facility]* Diagnosis Coronary arteriosclerosis Coronary atherosclerosis of unspecified type of vessel, [place] or graft documented in this encounter [facility]* Diagnosis Coronary arteriosclerosis Coronary atherosclerosis of unspecified type of vessel, [place] or graft documented in this encounter [facility] noteNo assessment information availableChillicothe [facility] Work Phone: Evaluation note* Diagnosis Hypertension, unspecified type- Primary 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) documented in this encounter [facility]* Diagnosis 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) documented in this encounter [facility] Narrative No data available for this section [facility] Discharge instructions No data available for this section [facility] No data available for this section [facility] Summary Purpose Family History No Family History Records FoundNo Family History Records FoundNo Family History Records FoundNo Family History Records Found No data available for this section No Family History Records Found No data available for this section No Family History Records Found No data available for this section No data available for this section No data available for this section No Family History Records Found No data available for this section No Family History Records FoundNo Family History Records Found Advance Directives No Advanced Directives Records Found Advance Directive Response Recorded Date/ Time Advance Directives No July 26, 2017 11:32am Reason for Referral Specialty Diagnoses / Procedures Referred By Contac t Referred To Contact Cardiology Diagnoses Pre-operative cardiovascular exam, new EKG abnormalities c/w ischemia Procedures Exercise nuclear stress test with myocardial perfusion SC MYOCARDIAL PERFUSION IMAGING TOMOGRAPHIC MULTI STUDIES AT REST OR STRESS SC MYOCARDIAL PERFUSION IMAGING TOMOGRAPHIC SINGLE STUDY AT REST OR STRESS SC CARDIOVASCULAR STRESS TEST GLOBAL SC CV TMST/BIKE MAX/SUBMAX CONTINUOUS ECG MON/PHARM STRESS SUPVSR ONLY SC CV TMST/BIKE CONT ECG MON/PHARM STRESS INTERP & REPORT ONLY SC TEST STRESS CARDIOVASCULAR TRACING ONLY Tom Harrison MD [address] [place] [address] [place] [id number] Referral ID Status Reason Start Date Expiration Date V isits Requested Visits Authorized [id number] Authorized 05/27/2022 11/23/2022 3 3 Specialty Diagnoses / Procedures Referred By Contac t Referred To Contact Cardiology Diagnoses Pre-operative cardiovascular exam, new EKG abnormalities c/w ischemia Procedures Transthoracic echocardiogram (TTE) complete with PRN contrast, bubble, strain, and 3D order panel SC TTE W 2D IMAGE COMPLETE W DOPPLER ECHO & COLOR FLOW DOPPLER ECHO SC VIRY 2D COMPLETE W/CONTRAST OR W/O & W/CONTRAST WITH DOPPLER Tom Harrison MD [address] [place] [address] [place] [phone] [facility] [place] Referral ID Status Reason Start Date Expiration Date V isits Requested Visits Authorized [id number] Authorized 05/27/2022 11/23/2022 1 1 Specialty Diagnoses / Procedures Referred By Tania t Referred To Contact Radiology Diagnoses 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) Procedures CT Chest wo and w Contrast Tom Harrison MD [address] [place] [address] [place] [id number] [facility] [place] Referral ID Status Reason Start Date Expiration Date V isits Requested Visits Authorized [id number] Authorized 01/02/2024 01/01/2025 1 1 Specialty Diagnoses / Procedures Referred By Tania george Referred To Contact Radiology Diagnoses 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) Procedures CT Angio Chest wo and/or w Contrast CT Chest w Contrast Tom Harrison MD [address] [facility] [address] [place] [address] [facility] [place] Referral ID Status Reason Start Date Expiration Date V isits Requested Visits Authorized [id number] Authorized 01/02/2024 1 1 Chief Complaint and Reason for Visit Chief Complaint R11.14 Additional Source Comments (unrecognized sect ion and content) No Status Records FoundNo Status Records FoundNo Status Records FoundNo Status Records FoundNo Status Records FoundNo Status Records FoundNo Status Records FoundNo Status Records FoundNo Status Records Found INFORMATION SOURCE (unrecogn ized section and content) DATE CREATED AUTHOR 09/04/2019 [facility] DATE CREATED AUTHOR AUTHOR'S ORGANIZ ATION 12/26/2021 [facility] DATE CREATED AUTHOR AUTHOR'S ORGANIZ ATION 02/05/2022 [facility] dical Specialist DATE CREATED AUTHOR AUTHOR'S ORGANIZ ATION 02/13/2023 [place] DATE CREATED AUTHOR AUTHOR'S ORGANIZ ATION 01/04/2024 [facility] DATE CREATED AUTHOR AUTHOR'S ORGANIZ ATION 01/30/2024 [facility] DATE CREATED AUTHOR AUTHOR'S ORGANIZ ATION 04/29/2024 [facility] DATE CREATED AUTHOR AUTHOR'S ORGANIZ ATION 05/25/2024 [facility] DATE CREATED AUTHOR AUTHOR'S ORGANIZ ATION 06/28/2024 [facility] dical Specialists EPIC Reason for Visit (unrecogniz ed section and content) Reason Onset Date Comments Med Refill 09/13/2021 Reason Onset Date Comments Med Refill 04/11/2022 Reason Comments Follow-up Cardiac clearance Specialty Diagnoses / Procedures Referred By Tania t Referred To Contact Cardiology Diagnoses Pre-operative cardiovascular exam, new EKG abnormalities c/w ischemia Procedures Transthoracic echocardiogram (TTE) complete with PRN contrast, bubble, strain, and 3D order panel SC TTE W 2D IMAGE COMPLETE W DOPPLER ECHO & COLOR FLOW DOPPLER ECHO SC VIRY 2D COMPLETE W/CONTRAST OR W/O & W/CONTRAST WITH DOPPLER Tom Harrison MD [address] [place] [id number] [facility] Referral ID Status Reason Start Date Expiration Date V isits Requested Visits Authorized [id number] Authorized 05/27/2022 11/23/2022 1 1 Specialty Diagnoses / Procedures Referred By Contac t Referred To Contact Cardiology Diagnoses Pre-operative cardiovascular exam, new EKG abnormalities c/w ischemia Procedures Exercise nuclear stress test with myocardial perfusion SC MYOCARDIAL PERFUSION IMAGING TOMOGRAPHIC MULTI STUDIES AT REST OR STRESS SC MYOCARDIAL PERFUSION IMAGING TOMOGRAPHIC SINGLE STUDY AT REST OR STRESS SC CARDIOVASCULAR STRESS TEST GLOBAL SC CV TMST/BIKE MAX/SUBMAX CONTINUOUS ECG MON/PHARM STRESS SUPVSR ONLY SC CV TMST/BIKE CONT ECG MON/PHARM STRESS INTERP & REPORT ONLY SC TEST STRESS CARDIOVASCULAR TRACING ONLY Tom Harrison MD [address] [place] [id number] Referral ID Status Reason Start Date Expiration Date V isits Requested Visits Authorized [id number] Authorized 05/27/2022 11/23/2022 3 3 Reason Comments Med Refill Reason Onset Date Comments Med Refill 06/22/2022 Reason Onset Date Comments Med Refill 07/31/2022 Reason Comments Hypertension Hyperlipidemia Coronary Artery Disease Dizziness Just a little Specialty Diagnoses / Procedures Referred By Contac t Referred To Contact Radiology Diagnoses 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 180 each 2 09/14/2021 12/13/2021 atorvastatin (LIPITOR) 40 mg tabletIndications:Coronary arteriosclerosis Take 1 tablet (40 mg total) by mouth at bedtime. 90 each 2 09/14/2021 12/13/2021 amLODIPine (NORVASC) 5 mg tabletIndications:Coronary arteriosclerosis Take 1 tablet (5 mg total) by mouth 1 (one) time each day. 90 each 2 09/14/2021 12/13/2021 Prescription Sig Dispensed Refills Start Date End Da te carvediloL (COREG) 6.25 mg tabletIndications:Coronary arteriosclerosis Take 1 tablet (6.25 mg total) by mouth 2 (two) times a day with meals. 180 each 1 04/11/2022 07/10/2022 Prescription Sig Dispensed Refills Start Date End Da te amLODIPine (NORVASC) 5 mg tabletIndications:Coronary arteriosclerosis take 1 tablet by mouth once daily 90 tablet 3 06/24/2022 Prescription Sig Dispensed Refills Start Date End Da te amLODIPine (NORVASC) 5 mg tabletIndications:Coronary arteriosclerosis Take 1 tablet (5 mg total) by mouth 1 (one) time each day. 90 each 3 06/24/2022 09/22/2022 Prescription Sig Dispensed Refills Start Date End Da te atorvastatin (LIPITOR) 40 mg tabletIndications:Coronary arteriosclerosis Take 1 tablet (40 mg total) by mouth at bedtime. 90 each 2 08/01/2022 10/30/2022 Prescription Sig Dispensed Refills Start Date End Da te atorvastatin (LIPITOR) 40 mg tabletIndications:Coronary arteriosclerosis take 1 tablet by mouth at bedtime 90 tablet 3 08/01/2022 Prescription Sig Dispensed Refills Start Date End Da te carvediloL (COREG) 6.25 mg tabletIndications:Coronary arteriosclerosis take 1 tablet by mouth twice a day WITH MEALS 180 tablet 2 10/17/2022 Care Teams (unrecognized sec tion and content) Radiation Protection Specialist Relationship Specialty Start Date End Date Gary Yeh MD [address] [place] [address] PCP - General Internal Medicine 05/27/22 Radiation Protection Specialist Relationship Specialty Start Date End Date Gary Yeh MD [address] [place] [address] PCP - General Internal Medicine 05/27/22 Radiation Protection Specialist Relationship Specialty Start Date End Date Gary Yeh MD [address] [place] [address] PCP - General Internal Medicine 05/27/22 Radiation Protection Specialist Relationship Specialty Start Date End Date Gary Yeh MD [address] [place] [address] PCP - General Internal Medicine 05/27/22 Radiation Protection Specialist Relationship Specialty Start Date End Date Gary Yeh MD [address] [facility] [address] [place] [address] PCP - General Internal Medicine 05/27/22 Radiation Protection Specialist Relationship Specialty Start Date End Date Gary Yeh MD [address] [facility] [address] [place] [address] PCP - General Internal Medicine 05/27/22 Radiation Protection Specialist Relationship Specialty Start Date End Date Gary Yeh MD [address] [facility] [address] [place] [address] PCP - General Internal Medicine 05/27/22 Team Status: Active Member Role Status Dates Gary Yeh II MD Primary Care Provider Active Team Status: Inactive Member Role Status Dates Luis Buchanan DO Attending Provider Active Gary Yeh II MD Primary Care Provider Active Radiation Protection Specialist Relationship Specialty Start Date End Date Gary Yeh MD [address] [place] [address] PCP - General Internal Medicine 05/27/22 Radiation Protection Specialist Relationship Specialty Start Date End Date Gary Yeh MD [address] [place] [address] PCP - General Internal Medicine 05/27/22 Radiation Protection Specialist Relationship Specialty Start Date End Date Gary Yeh MD [address] [facility] [address] [place] [address] PCP - General Internal Medicine 05/27/22 Goals (unrecognized section and content) Goals may be documented in a n alternate section No data available for this section No data available for this section No data available for this section No data available for this section No data available for this section No data available for this section FOR RECORDS PERTAINING TO PATIENTS WHO ARE OR HAVE BEEN ENROLLED IN A CHEMICAL DEPENDENCY/SUBSTANCEABUSE PROGRAM, SOME INFORMATION MAY BE OMITTED. This clinical summary was aggregated from multiple sources. Caution should be exercised in using it in the provision of clinical care. This summary normalizes information from multiple sources, and as a consequence, information in this document may materially change the coding, format and clinical context of patient data. In addition, data may be omitted in some cases. CLINICAL DECISIONS SHOULD BE BASED ON THE PRIMARY CLINICAL RECORDS. [email or web address] provides no warranty or guarantee of the accuracy or completeness of information in this document.
[2024-07-05 07:56] VITALS: BP 127/83; PULSE 72; TEMP 36.4; O2SAT 96
[2024-07-05] MEDS: LIDOCAINE 2% JELLY 10 ML UR (08:14)
[2024-07-05 08:20] VITALS: BP 169/91; PULSE 69; O2SAT 97
[2024-07-05 08:24] VITALS: BP 167/88; PULSE 67; O2SAT 96
--- NOTE | 2024-07-05 08:24 | PM.URSON ---
Urology Surgery Operative Note Operative Note Procedure Date: 07/05/24 Time Out Performed: yes Pre-op Diagnosis: BPH with LUTS refractory to medications Post-op Diagnosis: same as pre-op Procedures performed: 1. Cystoscopy. Anesthesia: local Primary Surgeon: Bandar Rogers Complications: None Estimated blood loss (mL): 0 Findings: 1. Mild meatal stenosis. 2. Trilobar obstruction of the prostate. 3. High-grade bladder damage. Specimens: None Drains: None Indications for Procedures: This gentleman has bothersome bladder outlet obstructive symptoms despite maximal medications in the form of dutasteride and alfuzosin. He also has chronic prostate infection. He now presents for cystoscopy. He has signed an informed consent. Detailed description of Procedure: The patient was kept on the gurney bed and brought into the endoscopy suite. He was in the supine position. Timeout was done by all parties in the room. We all agreed upon the patient's identification and the planned procedures for this patient. Genitalia were sterilely prepped and draped in the usual fashion. 2% lidocaine gel was passed per urethra. I started by passing a flexible cystoscope per urethra and into the bladder. The meatus was mildly stenosed. The anterior urethra was normal. The prostatic urethra revealed trilobar obstruction. It was moderately painful for the patient while the scope went through the prostate. Careful panendoscopy revealed no evidence of tumors or stones. High-grade trabeculation was noted. Small diverticuli were seen. The scope was retroverted upon itself and no new findings were noted. The scope was then removed. He was then discharged to home. The plan is that he will take doxycycline twice a day for 2 weeks. He is strongly desirous for TURP.
== END 2024-07-05 08:35 | disposition home or self-care (01) ==
PROVIDERS: PCP Internal Medicine; Visit Provider Urology
PROC: (CPT 52000; principal; 2024-07-05 08:00)
DX: N40.1 Benign prostatic hyperplasia with lower urinary tract symptoms (principal); R39.89 Other symptoms and signs involving the genitourinary system; N35.911 Unspecified urethral stricture, male, meatal; N32.89 Other specified disorders of bladder; I10 Essential (primary) hypertension; I25.10 Atherosclerotic heart disease of native coronary artery without angina pectoris; I25.2 Old myocardial infarction; Z87.891 Personal history of nicotine dependence
CPT/HCPCS: 52000

== ENCOUNTER 2024-10-04 12:28 | Outpatient (OUT) | payer MEDICARE, OTHER, SELFPAY ==
--- NOTE | 2024-10-04 12:37 | XR_ITS ---
The [address] [address] Patient Name: WILLI MCKOY MRN: [id number] date: 1955 Sex: M Assigned Patient Location: [facility] Current Patient Location: [facility] Accession/Order Number: [id number] Exam Date: 10/04/2024 13:22 Report Date: 10/04/2024 15:51 At the request of: VASYL TAPIA Procedure: XR chest 2V EXAM: XR chest 2V HISTORY: Preop exam COMPARISON: None. TECHNIQUE: Upright PA and lateral chest x-ray FINDINGS: The heart is not enlarged and the vasculature is not distended. No acute infiltrate, effusion or pneumothorax is identified. The osseous structures are grossly intact. XR/XR chest 2V IMPRESSION: No acute infiltrate or evidence of cardiac decompensation. Electronically authenticated by: MAXIMUS MARTINEZ Date: 10/04/2024 15:51
--- NOTE | 2024-10-04 12:37 | ECG_ITS ---
The [facility] Test Date: 2024-10-04 Pat Name: WILLI MCKOY Department: Room: - Gender: Male Document Control Associate: : 1955 Requested By: VASYL TAPIA Order Number: [id number] Reading MD: FARIBA FORRESTER Measurements Intervals [place] Rate: 65 P: 56 [place]: 182 QRS: -34 QRSD: 106 T: 34 QT: 375 QTc: 391 Interpretive Statements SINUS RHYTHM MARKED LEFT AXIS DEVIATION [QRS AXIS < -30] LOW QRS VOLTAGE IN PRECORDIAL LEADS [QRS DEFLECTION < 1.0 mV IN CHEST LEADS] INCOMPLETE RIGHT BUNDLE BRANCH BLOCK [90+ ms QRS DURATION, TERMINAL R IN V1/V2, 40+ ms S IN I/aVL/V4/V5/V6] Electronically Signed On 10-04-2024 22:39:58 EST by FARIBA FORRESTER
--- NOTE | 2024-10-04 13:20 | PM.PRESUREVA ---
History of Present Illness History of Present Illness Chief complaint: bph Narrative: Patient presents for presurgical testing. The patient states he had an elevated PSA, nocturia, weak urine stream, and had a local cystoscopy done in June. The patient denies dysuria, hematuria, nausea, vomiting, or any other complaints. Review of Systems ROS Narrative REVIEW OF SYSTEMS: Negative except as stated in HPI, ten or more systems reviewed. Constitutional: No fever, chills, weakness ENT: No sore throat or epistaxis Cardiovascular: No edema, chest pain, palpitations, or activity intolerance Respiratory: No shortness of breath Musculoskeletal: No joint pain or swelling Gastrointestinal: No abdominal pain, constipation, diarrhea, or vomiting Genitourinary: No dysuria or hematuria Neurological: No numbness, tingling, weakness, or headache Psychiatric: No mood changes PFSH [facility] Medical History (Updated 10/04/24 @ 13:18 by Susana Ling NP) Snores ?R06.83 - Snoring (ICD-10) Gallstone ?K80.20 - Calculus of gallbladder without cholecystitis without obstruction (ICD-10) Skin cancer ?C44.90 - Unspecified malignant neoplasm of skin, unspecified (ICD-10) NSTEMI (non-ST elevated myocardial infarction) (~2013) ?I21.4 - Non-ST elevation (NSTEMI) myocardial infarction (ICD-10) Thyroid nodule ?E04.1 - Nontoxic single thyroid nodule (ICD-10) BPH with obstruction/lower urinary tract symptoms ?N40.1 - Benign prostatic hyperplasia with lower urinary tract symptoms (ICD-10) ?N13.8 - Other obstructive and reflux uropathy (ICD-10) Hepatitis C ?B19.20 - Unspecified viral hepatitis C without hepatic coma (ICD-10) Cholelithiasis ?K80.20 - Calculus of gallbladder without cholecystitis without obstruction (ICD-10) Angina pectoris ?I20.9 - Angina pectoris, unspecified (ICD-10) CAD (coronary artery disease) ?I25.10 - Atherosclerotic heart disease of [place] coronary artery without angina pectoris (ICD-10) Ascending aorta dilation ?I77.810 - Thoracic aortic ectasia (ICD-10) Erectile dysfunction ?N52.9 - Male erectile dysfunction, unspecified (ICD-10) Hyperlipidemia ?E78.5 - Hyperlipidemia, unspecified (ICD-10) Ischemic heart disease ?I25.9 - Chronic ischemic heart disease, unspecified (ICD-10) Prostatitis ?N41.9 - Inflammatory disease of prostate, unspecified (ICD-10) Hypertension ?I10 - Essential (primary) hypertension (ICD-10) Heart disease ?I51.9 - Heart disease, unspecified (ICD-10) Heart attack ?I21.9 - Acute myocardial infarction, unspecified (ICD-10) Gall stones ?K80.20 - Calculus of gallbladder without cholecystitis without obstruction (ICD-10) Elevated PSA ?R97.20 - Elevated prostate specific antigen [PSA] (ICD-10) BPH (benign prostatic hyperplasia) ?N40.0 - Benign prostatic hyperplasia without lower urinary tract symptoms (ICD-10) Bladder pain ?R39.89 - Other symptoms and signs involving the genitourinary system (ICD-10) Hematuria ?R31.9 - Hematuria, unspecified (ICD-10) 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 ?Z79.82 - 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 (ICD-10) Arthritis ?M19.90 - Unspecified osteoarthritis, unspecified site (ICD-10) Surgical History (Updated 10/04/24 @ 13:18 by Susana Ling NP) History of excision of lesion ?Z98.890 - Other specified postprocedural states (ICD-10) ?Z87.2 - Personal history of diseases of the skin and subcutaneous tissue (ICD-10) H/O colonoscopy (~2023) ?Z98.890 - Other specified postprocedural states (ICD-10) History of cardiac catheterization ?Z98.890 - Other specified postprocedural states (ICD-10) H/O heart artery stent (~2013) ?Z95.5 - Presence of coronary angioplasty implant and graft (ICD-10) History of back surgery ?Z98.890 - Other specified postprocedural states (ICD-10) Hx of tonsillectomy ?Z90.89 - Acquired absence of other organs (ICD-10) H/O prostate biopsy ?Z98.890 - Other specified postprocedural states (ICD-10) Family History (Updated 10/04/24 @ 13:02 by Susana Ling NP) Other Diverticulitis Family history of diabetes mellitus Family history of pulmonary embolism Heart disease Social History (Updated 07/02/24 @ 10:31 by Renuka Hernandez RN) Within the past year, how often did you have a drink containing alcohol: never Score interpretation: A score less than 4 is consistent with normal alcohol consumption. Smoking status: Former smoker Second hand tobacco smoke exposure: No Non-prescribed substance use: cannabis (any form) Previous occupational history: [employer] Highest level of school completed/degree received: some college, no degree Meds Home Medications and Allergies Home Medications ?Medication ?Instructions ?Recorded ?Confirmed ?Type alfuzosin 10 mg tablet,extended 10 mg PO DAILY 07/02/24 10/04/24 History release 24 hr aspirin 81 mg capsule 81 mg PO DAILY 07/02/24 10/04/24 History atorvastatin 40 mg tablet 40 mg PO DAILY 07/02/24 10/04/24 History carvedilol 6.25 mg tablet 6.25 mg PO BID 07/02/24 10/04/24 History dutasteride 0.5 mg capsule 0.5 mg PO DAILY 07/02/24 10/04/24 History amlodipine 5 mg tablet 5 mg PO DAILY 07/05/24 10/04/24 History tamsulosin 0.4 mg capsule (Flomax) 0.4 mg PO DAILY 10/04/24 10/04/24 History Allergies Allergy/AdvReac Type Severity Reaction Status Date / Time Penicillins AdvReac Mild Rash Verified 07/02/24 10:37 Exam Narrative Exam Narrative: Constitutional: Awake, alert, comfortable, well-appearing, nontoxic, interactive, vital signs as charted Head: Normocephalic, atraumatic Neck: Supple, normal appearance, normal range of motion, no meningeal signs, no lymphadenopathy Respiratory: No respiratory distress, scattered rhonchi on auscultation Cardiovascular: Regular rate and rhythm, strong and regular heart tones Abdomen: Nontender, normal bowel sounds, soft, no CVA tenderness Musculoskeletal: Normal gait, no swelling or edema Skin: No rashes or induration, no lesions, only visible skin inspected Neuro: No neurological deficits, normal sensation Psychiatric: Oriented ?3, normal affect Assessment and Plan Assessment and Plan (1) BPH (benign prostatic hyperplasia): (2) Elevated PSA: (3) BPH with obstruction/lower urinary tract symptoms: Plan Cystoscopy/TURP scheduled with Dr. Rogers October 28, 2024.
[2024-10-04 13:28] LABS: Basophils Percent Auto 0.4 % (0.2-2.0); Eosinophils Absolute Auto 0.2 10^3/uL (0.0-0.7); Hematocrit 45.2 % (42.0-54.0); Hemoglobin 15.5 g/dL (14.0-18.0); Immature Granulocytes Abs Auto 0.03 10^3/uL (0.00-0.03); Immature Granulocytes Pct Auto 0.4 % (0.0-0.5); Lymphocytes Absolute Auto 1.1 10^3/uL (1.2-3.8); Lymphocytes Percent Auto 13.3 % (20.5-60.0); Mean Corpuscular HGB Conc 34.3 g/dL (29.9-35.2); Mean Corpuscular Volume 93.2 fL (80.0-94.0); Monocytes Absolute Auto 0.9 10^3/uL (0.3-0.8); Monocytes Percent Auto 10.9 % (1.7-12.0); Neutrophils Absolute Auto 5.8 10^3/uL (1.4-6.5); Platelet Count 218 10^3/uL (150-450); Red Blood Count 4.85 10^6/uL (4.70-6.10); Red Cell Distribution Width 13.5 % (11.0-15.0)
[2024-10-04 13:38] LABS: Anion Gap 10.4; BUN Creatinine Ratio 22.4; Calcium 8.9 mg/dL (8.5-10.1); Carbon Dioxide 28.8 mmol/L (21.0-32.0); Chloride 107 mmol/L (98-107); Estimated GFR (African America >60 (>=60 mL/min/1.73m^2); Estimated GFR (Non-African Ame >60 (>=60 mL/min/1.73m^2); Glucose 131 mg/dL (74-106); Potassium 4.2 mmol/L (3.5-5.1); Sodium 142 mmol/L (136-145)
[2024-10-04 13:42] LABS: INR 1.06; Partial Thromboplastin Time 25.1 sec (22.3-36.2); Prothrombin Time 11.2 sec (9.0-11.6)
[2024-10-04 13:44] LABS: Alanine Aminotransferase 34 U/L (16-63); Albumin Level 3.3 g/dL (3.4-5.0); Alkaline Phosphatase 91 U/L (46-116); Aspartate Amino Transferase 16 U/L (15-37); Bilirubin Direct 0.1 mg/dL (0.0-0.2); Bilirubin Total 0.4 mg/dL (0.2-1.0); Globulin 3.4 g/dL; Total Protein 6.7 g/dL (6.4-8.2)
== END 2024-10-04 12:29 | disposition home or self-care (01) ==
LOC: PST 12:30
PROVIDERS: PCP Internal Medicine; Visit Provider Urology
DX: Z01.810 Encounter for preprocedural cardiovascular examination (principal); Z01.812 Encounter for preprocedural laboratory examination; Z01.818 Encounter for other preprocedural examination; N40.1 Benign prostatic hyperplasia with lower urinary tract symptoms
CPT/HCPCS: 71046; 80048; 80076; 85025; 85610; 85730; 93005; G0463

== ENCOUNTER 2025-01-25 07:57 | Outpatient (OUT) | payer MEDICARE, OTHER, SELFPAY ==
--- NOTE | 2025-01-25 08:03 | US_ITS ---
The [place] [id number] Patient Name: WILLI MCKOY MRN: [id number] date: 1955 Sex: M Assigned Patient Location: [place] Current Patient Location: [place] Accession/Order Number: [id number] Exam Date: 01/25/2025 08:40 Report Date: 01/25/2025 08:48 At the request of: GIA SUMMERS Procedure: US right upper quadrant LIMITED RIGHT UPPER QUADRANT ABDOMINAL ULTRASOUND CLINICAL HISTORY: Bilious Vomiting With Nausea COMPARISON: 05/04/2019 The gallbladder is physiologically distended. There are multiple echogenic layering gallstones. No wall thickening or pericholecystic fluid. No intrahepatic biliary dilatation is evident. The common duct is slightly prominent measuring 6 - 7 mm. No intraluminal filling defects are visualized in the segment that is imaged. There is increased echogenicity of hepatic parenchyma that may be fatty infiltration. An ill-defined hypoechoic area seen at the periphery of the left hepatic lobe measuring 12 x 8 x 10 mm in size. There is appropriate hepatopetal flow within the main portal vein. The pancreas shows no significant sonographic abnormality. Cursory evaluation of the right kidney reveals no hydronephrosis or fluid within Galindo's pouch. US/US right upper quadrant IMPRESSION: FATTY LIVER WITH INDETERMINATE LEFT HEPATIC HYPOECHOIC AREA. IT IS UNCERTAIN IF THIS COULD BE FOCAL FATTY SPARING. CHOLELITHIASIS. SLIGHTLY PROMINENT COMMON DUCT, UNDETERMINED ETIOLOGY. Impression dictated by: Barbara Bernal M.D.01/25/2025 8:48 AM Dictation Location: [place] [address] Electronically authenticated by: [id number] Y Date: 01/25/2025 08:48
--- OUTSIDE RECORDS SUMMARY | 2025-01-25 08:04 | XMS_ITS | CCD ---
Author Organization [facility] Care Team Providers Care Admitting Manager Name Role Phone Unavailable Primary Care Provider Donna YEH, DR SWARTZ Primary Care Unavailable RAO, DR SWARTZ Admitting Unavailable RAO, DR SWARTZ Attending Unavailable RAO, DR SWARTZ Consulting Unavailable VIRIDIANA, DR CADEN Dash Consulting Unavailable RAO, DR SWARTZ Consulting Unavailable RAO, DR SWARTZ Primary Care Unavailable RAO, DR SWARTZ Admitting Unavailable RAO, DR SWARTZ Attending Unavailable DEMI, DR MATT Hayden Consulting Unavailable RAO, DR SWARTZ Primary Care Unavailable RAO, DR SWARTZ Admitting Unavailable RAO, DR SWARTZ Attending Unavailable Gary Yeh MD Primary Care Provider Gary Yeh MD Primary Care Provider Gary Yeh MD Primary Care Provider DO Luis Summers Attending Provider [phone] TISHA Yeh Primary Care Provider [phone] GARY YEH Primary Care Physician Gary Yeh MD Primary Care Provider TOM HARRISON Referring Unavailable GARY YEH Primary Care Unavailable Bandar ROGERS Attending Unavailable Bandar ROGERS Admitting Unavailable Bandar ROGERS Attending Unavailable Bandar ROGERS R Attending Unavailable Bandar ROGERS R Attending Unavailable Bandar ROGERS R Attending Unavailable Bandar ROGERS R Attending Unavailable GARY YEH Referring Unavailable Bandar ROGERS Attending Unavailable Bandar ROGERS Attending Unavailable TISHA Yeh Primary Care Provider MD Alistair Yañez Attending Provider [phone] Alistair Yañez Attending Unavailable Alistair Yañez Admitting Unavailable Gary Yeh Primary Care Unavailable Gary Yeh MD Unavailable Gary Yeh MD Primary Care Provider KELBY BARRETT~[id number], VARUN [phone] KELBY Attending Unavailable GARY YEH Primary Care Unavailable GARY YEH Primary Care Unavailable HARRISON, TOM Attending Unavailable ROGERSBandar Attending Unavailable ROGERSBandar Attending Unavailable ROGERS, Bandar R Attending Unavailable ROGERS, Bandar R Attending Unavailable ROGERS, Bandar R Attending Unavailable ROGERSBandar Attending Unavailable GARY YEH Attending Unavailable GARY YEH Referring Unavailable BARBARA SPICER Attending Unavailable GARY YEH Attending Unavailable LUIS SUMMERS Attending Unavailable GARY YEH Referring Unavailable Allergies Allergy Classification Reported Allergen(s) Allergy Type Date of Onset Reaction(s) Facility (1 source) Penicillins Drug allergy (disorder) 4 [facility] Repository (16 sources) Penicillin G; Translations: [PENICILLIN G POTASSIUM] Drug Allergy 1 Unknown [facility] (8 sources) Penicillin; Translations: [penicillin] Drug Allergy Eruption of skin (disorder) [facility] (1 source) Penicillins Drug allergy (disorder) 4 [facility] Repository (11 sources) Penicillin G Drug Allergy 3 Unknown [facility] Medications Current Medications Medication Drug Class(es) Dates Sig (Normalized) Sig (Original) 24 hr alfuzosin hydrochloride 10 mg extended release oral tablet (20 sources) alpha-Adrenergic Chikis Start: 10-27-2023 take 1 tablet by mouth once daily alfuzosin (UROXATRAL) 10 mg 24 hr tablet Take 1 tablet (10 mg total) by mouth 1 (one) time each day. 10/28/2023 Active amLODIPine 5 mg oral tablet (20 sources) Dihydropyridine Calcium Channel Chikis Start: 03-29-2024 take 1 tablet by mouth once daily amLODIPine (Norvasc) 5 MG tablet Indications: Essential hypertension (CMS/HCC) Take 1 tablet (5 mg) by mouth Daily 100 tablet 3 07/06/2024 Active Start: 06-24-2022 End: 01-02-2024 take 1 tablet by mouth in the morning amLODIPine (Norvasc) 5 MG tablet Indications: Essential hypertension (CMS/HCC) Take 1 tablet (5 mg) by mouth in the morning. 100 tablet 3 05/05/2023 Active Start: 09-14-2021 End: 12-13-2021 take 1 tablet by mouth once daily amLODIPine (NORVASC) 5 mg tablet Indications: Coronary arteriosclerosis Take 1 tablet (5 mg total) by mouth 1 (one) time each day. 90 each 2 09/14/2021 Active aspirin 81 mg delayed release oral tablet (20 sources) Platelet Aggregation Inhibitor, Nonsteroidal Anti-inflammatory Drug Start: 06-29-2024 take 81 mg by mouth once daily Aspirin Active 81 MG PO Daily June 29, 2024 12:00am Start: 10-27-2023 take 1 mg by mouth e very twenty-four hours aspirin 81 mg oral capsule mg cap(s), Oral, q24hr, Refills(s) 0 Start Date: 10/27/23 Status: Ordered atorvastatin 40 mg oral tablet (20 sources) HMG-CoA Reductase Inhibitor Start: 09-19-2023 take 1 tablet by mouth at bedtime atorvastatin (Lipitor) 40 MG tablet Indications: Mixed hyperlipidemia (CMS/HCC) Take 1 tablet (40 mg) by mouth at bedtime 90 tablet 3 07/23/2024 Active Start: 09-14-2021 End: 10-30-2022 take 1 tablet by mouth at bedtime atorvastatin (LIPITOR) 40 mg tablet Indications: Coronary arteriosclerosis Take 1 tablet (40 mg total) by mouth at bedtime. 90 each 2 08/01/2022 10/30/2022 Active carvedilol 6.25 mg oral tablet (20 sources) alpha-Adrenergic Chikis, beta-Adrenergic Chikis Start: 08-01-2023 take 1 tablet by mouth in the morning carvedilol (Coreg) 6.25 MG tablet Take 6.25 mg by mouth in the morning and 6.25 mg in the evening. 04/22/2024 Active Start: 10-17-2022 take 1 tablet by tony th twice daily at mealtime carvediloL (COREG) 6.25 [...] day(s), # 14 tab(s), Refills(s) 0, Pharmacy: [facility] #[id number], 183, cm, 01/21/24 16:36:00 EDT, Height/Length Dosing, 88.5, kg, 01/21/24 16:36:00 EDT, Weight Dosing Start Date: 01/21/24 Stop Date: 01/28/24 Status: Ordered diclofenac sodium 75 mg delayed release oral tablet (8 sources) Nonsteroidal Anti-inflammatory Drug Start: 07-02-2023 End: 06-07-2024 diclofenac (VOLTAREN) 75 mg EC tablet 1 tablet (75 mg total). 07/02/2023 Active dutasteride 0.5 mg oral capsule (19 sources) 5-alpha Reductase Inhibitor Start: 10-27-2023 End: 10-21-2024 take 1 capsule by mouth once daily dutasteride (Avodart) 0.5 MG capsule Take 0.5 mg by mouth Daily 04/22/2024 Active levoFLOXacin 750 mg oral tablet (2 sources) Quinolone Antimicrobial Start: 04-12-2024 End: 06-07-2024 take 1 tablet by mouth once daily levoFLOXacin (Levaquin) 750 MG tablet take 1 tablet by mouth once daily for 7 days 04/12/2024 06/07/2024 Discontinued Multiple Vitamins-Minerals (Multi Complete) capsule (2 sources) End: 06-07-2024 Multiple Vitamins-Minerals (Multi Complete) capsule 1 (one) time each day at the same time 06/07/2024 Discontinued (Ineffective) Multivitamin preparation (6 sources) Start: 10-27-2023 multivitamin Refill(s) 0 Start Date: 10/27/23 Status: Ordered oxyCODONE hydrochloride 10 mg oral tablet (4 sources) Opioid Agonist Start: 01-21-2024 oxycodone 10 mg oral tablet 10 mg = 1 tab(s), Oral, As Directed, Take prior to TRUS/bx procedure, # 1 tab(s), Refills(s) 0, [facility]: [facility][id number], 183, cm, 01/21/24 16:36:00 EDT, Height/Length Dosing, 88.5, kg, 01/21/24 16:36:00 EDT, Weight Dosing Start Date: 01/21/24 Status: Ordered Sod Picosulf-Mag Ox-Citric Ac (2 sources) Start: 06-17-2024 Sod Picosulf-Mag Ox-Citric Ac (Clenpiq) 10 mg-3.5 gram- 12 gram/175 mL solution Active 175 ML PO .COMPLEX 350 June 17, 2024 12:00am Follow instructions given by office. Start: 06-17-2024 Sod Picosulf-M ag Ox-Citric Ac (Clenpiq) 10 mg-3.5 gram- 12 gram/175 mL solution Active 175 ML PO .COMPLEX 350 June 17, 2024 12:00am Follow instructions given by office tadalafil 5 mg oral tablet (18 sources) Phosphodiesterase 5 Inhibitor Start: 03-28-2021 End: 06-07-2024 take 1 tablet by mouth once daily as needed tadalafil (Cialis) 5 MG tablet Indications: Erectile dysfunction, unspecified erectile dysfunction type Take 1 tablet (5 mg) by mouth Daily as needed for erectile dysfunction. 30 tablet 5 09/03/2023 06/07/2024 Discontinued (Other) Completed/Discontinued Medications Medication Drug Class(es) Dates Sig (Normalized) Sig (Original) azithromycin 250 mg oral tablet (2 sources) Macrolide Antimicrobial Start: 08-24-2024 End: 08-29-2024 take 2 tablets by mouth once daily, then take 1 tablet by mouth once daily azithromycin (Zithromax) 250 MG tablet Indications: Acute bronchitis, unspecified organism , Acute non-recurrent sinusitis, unspecified location Take 2 tablets (500 mg) by mouth Daily for 1 day, THEN 1 tablet (250 mg) Daily for 4 days. 6 tablet 08/24/2024 08/29/2024 doxycycline hyclate 100 mg oral capsule (2 sources) Tetracycline-class Drug Start: 04-28-2024 doxycycline hyclate 100 mg Cap 100 mg = 1 cap(s), Oral, As Directed, Patient to take 1 tab the day before procedure and the 2nd tab the day of procedure once completed, # 2 cap(s), Refills(s) 0, Pharmacy: [facility] #[id number], 183, cm, 04/28/24 10:27:00 EDT, Height/Length Dosing, 88, kg, 04/28/24 10:27:00 EDT, Weight Dosing Start Date: 04/28/24 Status: Ordered Start: 10-27-2023 End: 11-17-2023 take 1 capsule by mouth twice daily doxycycline hyclate 100 mg Cap 100 mg = 1 cap(s), Oral, BID, X 3 week(s), # 42 cap(s), Refills(s) 0, Pharmacy: [facility] #[id number], 183, cm, 10/27/23 9:45:00 EST, Height/Length Dosing, [...] Active Problems Problem Classification Problem Date Documented Date Episodic/Chronic Acute bronchitis (2 sources) Acute bronchitis; Translations: [Acute bronchitis, unspecified] 08-24-2024 Episodic Acute myocardial infarction (6 sources) Myocardial infarction 10-27-2023 Chronic Aortic; peripheral; and visceral artery aneurysms (5 sources) Aneurysm of aortic arch; 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)] Onset: 04-28-2024 01-02-2024 Chronic Biliary tract disease (20 sources) Biliary calculus; Translations: [Calculus of gallbladder without cholecystitis without obstruction] Onset: 01-16-2021 05-27-2022 Episodic Chronic obstructive pulmonary disease and bronchiectasis (2 sources) Panacinar emphysema; Translations: [Panlobular emphysema] 06-07-2024 Chronic Coronary atherosclerosis and other heart disease (20 sources) Coronary arteriosclerosis; Translations: [Atherosclerotic heart disease of [place] coronary artery without angina pectoris] Onset: 05-27-2022 Chronic Disorders of lipid metabolism (20 sources) Hyperlipidemia; Translations: [Hyperlipidemia, unspecified] Onset: 05-27-2022 05-27-2022 Chronic Essential hypertension (20 sources) Hypertensive disorder; Translations: [Essential (primary) hypertension] Onset: 05-27-2022 Chronic Hyperplasia of prostate (20 sources) Lower urinary tract symptoms due to benign prostatic hypertrophy; Translations: [Benign prostatic hyperplasia with lower urinary tract symptoms] Onset: 12-15-2020 05-27-2022 Chronic Inflammatory conditions of male genital organs (8 sources) Prostatitis; Translations: [Inflammatory disease of prostate, unspecified] Onset: 10-27-2023 Episodic Nausea and vomiting (13 sources) Bilious vomiting; Translations: [Bilious vomiting] Onset: 03-24-2023 03-24-2023 Episodic Osteoarthritis (6 sources) Arthritis 10-27-2023 Chronic Other aftercare (3 sources) Long-term current use of aspirin; 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] Onset: 10-27-2023 Episodic Other and ill-defined heart disease (6 sources) Heart disease 10-27-2023 Chronic Other non-epithelial cancer of skin (6 sources) Malignant neoplasm of skin 10-27-2023 Episodic Other screening for suspected conditions (not mental disorders or infectious disease) (20 sources) Abnormal findings on diagnostic imaging of other specified body structures; Translations: [Radiology result abnormal] Onset: 12-24-2021 Chronic Other screening for suspected conditions (not mental disorders or infectious disease) (14 sources) Encounter for screening for cardiovascular disorders; Translations: [Raised prostate specific antigen] Onset: 01-24-2021 Episodic Other upper respiratory infections (2 sources) Acute sinusitis; Translations: [Acute sinusitis, unspecified] 08-24-2024 Episodic Peripheral and visceral atherosclerosis (2 sources) Atherosclerosis of aorta; Translations: [Atherosclerosis of aorta] 06-07-2024 Chronic Residual codes; unclassified (4 sources) Family history of cancer; Translations: [Family history of malignant neoplasm of prostate] Onset: 10-27-2023 Episodic Residual codes; unclassified (6 sources) Family history of prostate cancer 10-27-2023 Episodic Thyroid disorders (20 sources) Thyroid nodule; Translations: [Nontoxic single thyroid nodule] Onset: 05-27-2022 05-27-2022 Chronic Unclassified (6 sources) Asymptomatic microscopic hematuria 10-27-2023 Unclassified (6 sources) Long-term current use of aspirin 10-27-2023 Unclassified (2 sources) Aneurysm of the aortic arch, without rupture; Translations: [Aneurysm of the aortic arch, without rupture] Onset: 01-02-2024 Past or Other Problems Problem Classification Problem Date Documented Da te Episodic/Chronic Abdominal pain (11 sources) Right upper quadrant pain; Translations: [Right upper quadrant pain] Onset: 03-24-2023 03-24-2023 Episodic Diabetes mellitus without complication (9 sources) Impaired fasting glycemia; Translations: [Impaired fasting glucose] Onset: 08-24-2024 08-24-2024 Episodic Genitourinary symptoms and ill-defined conditions (17 sources) Urinary tract obstruction; Translations: [Obstructive and reflux uropathy, unspecified] Onset: 12-15-2020 05-27-2022 Episodic Hepatitis (20 sources) Viral hepatitis C; Translations: [Unspecified viral hepatitis C without hepatic coma] Onset: 03-05-2021 05-27-2022 Episodic Mood disorders (10 sources) Mood disorders Onset: 06-07-2024 06-07-2024 Other diseases of kidney and ureters (11 sources) Disorder of urinary tract; Translations: [Other obstructive and reflux uropathy] Onset: 06-12-2023 06-12-2023 Episodic Other gastrointestinal disorders (2 sources) Stool DNA-based colorectal cancer screening positive; Translations: [Other fecal abnormalities] 06-07-2024 Episodic Screening and history of mental health and substance abuse codes (17 sources) Personal history of nicotine dependence; Translations: [H/O: Disorder] Onset: 01-17-2021 Episodic Results Test Name Value Interpretation Reference Range Facility ECG 12 lead (MIDMARK)on 10-13 Sinus Rhythm Low voltage in precordial leads. -RSR(V1) -nondiagnostic. ABNORMAL [facility] ECG 12-LEAD (MIDMARK)on 10-13 ECG 12-LEAD (MIDMARK) Sinus Rhythm Low voltage in precordial leads. -RSR(V1) -nondiagnostic. ABNORMAL Normal [facility] ALL CBC WITH AUTO DIFFon BASOPHILS ABSOLUTE AUTO 0 [facility] Basophils/100 WBC (Bld) 0.4 % 0.2 - 2.0 % [facility] Eosinophils/100 WBC (Bld) 2 % 0.9 - 7.0 % [facility] Erythrocyte distribution width (RBC) [Ratio] 13.5 % 11.0 - 15.0 % [facility] Hematocrit (Bld) [Volume fraction] 45.2 % 42.0 - 54.0 % [facility] Hemoglobin (Bld) [Mass/Vol] 15.5 g/dL 14.0 - 18.0 g/dL [facility] IMMATURE GRANULOCYTES ABS AUTO 0.03 [facility] Immature granulocytes/100 WBC (Bld) 0.4 % 0.0 - 0.5 % [facility] Interpretation and review of laboratory results Abnormal [facility] LYMPHOCYTES ABSOLUTE AUTO 1.1 Low [facility] Lymphocytes/100 WBC (Bld) 13.3 % Low 20.5 - 60.0 % [facility] MCH (RBC) [Entitic mass] 32 pg 25.9 - 34.0 pg [facility] MCHC (RBC) [Mass/Vol] 34.3 g/dL 29.9 - 35.2 g/dL [facility] MCV (RBC) [Entitic vol] 93.2 fL 80.0 - 94.0 fL [facility] MONOCYTES ABSOLUTE AUTO 0.9 High [facility] Monocytes/100 WBC (Bld) 10.9 % 1.7 - 12.0 % [facility] NEUTROPHILS ABSOLUTE AUTO 5.8 [facility] Neutrophils/100 WBC (Bld) 73 % 43.0 - 75.0 % [facility] Platelet mean volume (Bld) [Entitic vol] 10 fL 9.5 - 13.5 fL [facility] EO # 0.2 [facility] PLT [address] [facility] RBC 4.85 [facility] WBC 8 [facility] Amphetamine Screen Ql (U)Ord ered By: Imad Asaad on 07-12-2024 Amphetamines Ql (U) Negative Negative [facility] Barbiturates [Presence] in U rine by Screen methodOrdered By: Imad Asaad on 07-12-2024 Barbiturates Screen Ql (U) Negative Negative [facility] Benzodiazepines Screen Ql (U )Ordered By: Imad Asaad on 07-12-2024 Benzodiazepines Ql (U) Negative Negative [facility] Benzoylecgonine [Presence] i n Urine by Screen methodOrdered By: Imad Asaad on 07-12-2024 Benzoylecgonine Screen Ql (U) Negative Negative [facility] Cannabinoids [Presence] in U rine by Screen methodOrdered By: Imad Asaad on 07-12-2024 Cannabinoids Screen Ql (U) Positive High Negative [facility] Comment on above: These are unconfirme d results and should not be used for legal purposes. Drug Cut-Off Concentration: AMPH 1000 ng/mL MEORY 200 ng/mL TANK 200 ng/mL COCM 300 ng/mL OP 300 ng/mL PCP 25 ng/mL THC 20 ng/mL Drug Screen,Urineon 07-12-20 24 Amphetamine Screen,Urine Negative Normal Negative [facility] Comment on above: Performed By: #### U RDS #### [facility] [address] Barbiturate Screen,Urine Negative Normal Negative [facility] Comment on above: Performed By: #### U RDS #### [facility] [address] Benzodiazepines Screen,Urine Negative Normal Negative [facility] Comment on above: Performed By: #### U RDS #### [address] Cannabinoid Screen,Urine Positive High Negative [facility] Comment on above: Result Comment: Thes e are unconfirmed results and should not be used for legal purposes. Drug Cut-Off Concentration: AMPH 1000 ng/mL EMORY 200 ng/mL TANK 200 ng/mL COCM 300 ng/mL OP 300 ng/mL PCP 25 ng/mL THC 20 ng/mL PERFORMED BY: [place] [address] PATHOLOGIST MANAGER WILLOW EUGENIO SHEA M.D. Performed By: #### U RDS #### [address] Cocaine Screen,Urine Negative Normal Negative [facility] Comment on above: Performed By: #### U RDS #### [address] Opiate Screen,Urine Negative Normal Negative [facility] Comment on above: Performed By: #### U RDS #### [address] Phencyclidine Screen,Urine Negative Normal Negative [facility] Comment on above: Performed By: #### U RDS #### [address] Opiates [Presence] in Urine by Screen methodOrdered By: Imtrever Yañez on 07-12-2024 Opiates Screen Ql (U) Negative Negative [facility] Pathology Request for Lab Co rpon 07-12-2024 Pathology Request for Lab Viktor Normal [facility] Comment on above: Result Comment: See report. Scanned copy available in EMR. PERFORMED BY: [place] [address] PATHOLOGIST MANAGER WILLOW EUGENIO SHEA M.D. Performed By: #### P ATH TO [facility] #### [address] Phencyclidine Screen Ql (U)O rdered By: Imad Asaad on 07-12-2024 Phencyclidine Ql (U) Negative Negative [facility] CT LUNG SCREENING LOW DOSEon 06-23-2024 CT [...] 04-28-2024 Ambulatory Visit Summary Ambulatory Visit Summary LEELEE RIDDLE DANIEL L :1955 Visit Date:04/28/2024 Ambulatory Visit Instructions Your Diagnosis Elevated PSA BPH with obstruction/lower urinary tract symptoms Bladder pain Family history of prostate cancer in father Aneurysm Your Care Team Attending Physician - REGINA SANTANA, Bandar Dash Primary Care Physician - RAO SANTANA, GARY Jacob This Is Your Medications [...] Following Appointments Follow Up with REGINA SANTANA, ERICK Abdi When: Where: [facility] [address] [place] [address]- Medications What How Much When Instructions New doxycycline (doxycycline hyclate 100 mg Cap) 1 Capsules By Mouth As Directed Patient to take 1 tab the day before procedure and the 2nd tab the day of procedure once completed Pickup at [facility] #[id number] Unchanged alfuzosin (alfuzosin 10 mg ER Tab) [...] physician if questions or concerns Pharmacy Information [facility][id number]: [address] [place], [place] [phone] Allergies penicillin (Rash) Problems Ongoing - Any [...] including vitamins, herbs, eye drops, creams, and towb-sdi-wqbuuxg medicines. ? Any problems you or family [...] thinners. ? (more content not included)... Normal [facility] Urology Office/Clinic Noteon 04-28-2024 Urology Office/Clinic Note [...] that has been monitored for years. Per machinist brake, would prefer that he does not take quinolones if another class can be prescribed instead. Follow-up With When Contact Information Bandar ROGERS MD, URL [facility] [address] [place] [address]- Additional Instructions: schedule cysto Patient Education Cystoscopy Brigitte Newton, personally scribed for Dr. Rogers on 04/28/2024 [...] Procedure/Surgical Hist (more content not included)... Normal [facility] Comment on above: Result Comment: Elec tronically Signed By: Bandar ROGERS MD\.br\Date and Time Signed: 04/28/24 10:55 EDT\.br\Electronically Co-Signed By: Brigitte Mixon\.br\Date and Time Co-Signed: 04/28/24 10:52 EDT Prostate Histology ([facility]) on 04-20-2024 Prostate Histology Diagnosis Info Invalid Interpretation Code [facility] Comment on above: Result Comment: A:Pr ostate,Left Lateral Base:Needle Biopsy Interpretation - - Benign prostatic tissue. MicroScopic Description - B:Prostate,Left Lateral Mid:Needle Biopsy Interpretation - - Benign prostatic tissue. MicroScopic Description - Atrophy present. See Comment. C:Prostate,Left Lateral [place]:Needle Biopsy Interpretation - - Benign prostatic tissue. MicroScopic Description - Atrophy is present. D:Prostate,Left Base:Needle Biopsy Interpretation - - Benign prostatic tissue. MicroScopic Description - See Comment. E:Prostate,Left Mid:Needle Biopsy Interpretation - - Benign prostatic tissue. MicroScopic Description - See Comment. F:Prostate,Left [place]:Needle Biopsy Interpretation - - Benign prostatic tissue. MicroScopic Description - G:Prostate,Right Base:Needle Biopsy Interpretation - - Benign prostatic tissue. MicroScopic Description - H:Prostate,Right Mid:Needle Biopsy Interpretation - - Benign prostatic tissue. MicroScopic Description - See Comment. I:Prostate,Right [place]:Needle Biopsy Interpretation - - Benign prostatic tissue. MicroScopic Description - J:Prostate,Right Lateral Base:Needle Biopsy Interpretation - - Benign prostatic tissue. MicroScopic Description - See Comment. K:Prostate,Right Lateral Mid:Needle Biopsy Interpretation - - Benign prostatic tissue. MicroScopic Description - L:Prostate,Right Lateral [place]:Needle Biopsy Interpretation - - Benign prostatic tissue. [...] on: 04/20/2024 16:35:52 Performed By: #### 1 [id number] #### [facility] Laboratory [address] [place] [address] Ambulatory Visit Summaryon 0 04-07-2024 Ambulatory Visit Summary DANIEL CLEMENTE JR :1955 Visit Date:04/07/2024 Ambulatory Visit Instructions Your Diagnosis Elevated PSA BPH with obstruction/lower urinary tract symptoms Family history of prostate cancer in father Former smoker Aspirin long-term use Your Care Team Attending Physician - Bandar [...] Bandar ROGERS MD Where: [facility] Patient Educationon 04-07-20 Patient Education Oncology Transrectal [...] near your rectum, especially while sitting. ? Turah-colored urine due to small amounts of blood in your urine. ? A burning feeling while urinating. ? Blood in your stool (feces) or bleeding from your rectum. ? Blood in your semen. Follow these instructions at home: Medicines ? Take orpn-jco-dgnbmsh and prescription medicines only as told by [...] provider. Document Revised: 03/25/2022 Document Reviewed: 03/25/2022 Elsevier Patient Education ? 2022 [employer] Normal [facility] Prostate Histology ([facility]) on 04-07-2024 PH Method of Extraction Needle Biopsy Normal [facility] Comment on above: Performed By: #### 1 [id number] #### [facility] [address] [place] [address] PH Number of Jars 2 Invalid Interpretation Code [facility] Comment on above: Performed By: #### 1 [id number] #### [facility] [address] [place] [address] PH Specimen 1 R Base Prostate Normal [facility] Comment on above: Performed By: #### 1 [id number] #### [facility] [address] [place] [address] PH Specimen 10 L Lat Mid Prost Normal [facility] Comment on above: Performed By: #### 1 [id number] #### [facility] [address] [place] [address] PH Specimen 11 L Apx Prostate Normal [facility] Comment on above: Performed By: #### 1 [id number] #### [facility] [address] [place] [address] PH Specimen 12 L Lat Apx Prost Normal [facility] Comment on above: Performed By: #### 1 [id number] #### [facility] [address] [place] [address] PH Specimen 2 R Lat Bse Prost Normal [facility] Comment on above: Performed By: #### 1 [id number] #### [facility] [address] [place] [address] PH Specimen 3 R Mid Prostate Normal [facility] Comment on above: Performed By: #### 1 [id number] #### [facility] [address] [place] [address] PH Specimen 4 R Lat Mid Prost Normal [facility] Comment on above: Performed By: #### 1 [id number] #### [facility] [address] [place] [address] PH Specimen 5 R Apx Prostate Normal [facility] Comment on above: Performed By: #### 1 [id number] #### [facility] [address] [place] [address] PH Specimen 6 R Lat Apx Prost Normal [facility] Comment on above: Performed By: #### 1 [id number] #### [facility] [address] [place] [address] PH Specimen 7 L Base Prostate Normal [facility] Comment on above: Performed By: #### 1 [id number] #### [facility] [address] [place] [address] PH Specimen 8 L Lat Bse Prost Normal [facility] Comment on above: Performed By: #### 1 [id number] #### [facility] [address] [place] [address] PH Specimen 9 L Mid Prostate Normal [facility] Comment on above: Performed By: #### 1 [id number] #### [facility] [address] [place] [address] PH Type of Service Technical Only Normal [facility] Comment on above: Performed By: #### 1 [id number] #### [facility] [address] [place] [address] Urology Office/Clinic Noteon 04-07-2024 Urology Office/Clinic Note [...] bladder ca. 5. 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 [2] Elevated periop complications. Was to stop his aspirin on Friday but forgot and stopped it on . Follow-up With When Contact Information REGINA SANTANA, Bandar Dash, URL [facility] [address], [place] [address]- Additional Instructions: Follow up 04/23/24 to rev path Patient Education Transrectal Ultrasound-Guided Prostate Biopsy, Care After I, Brigitte Mixon, personally (more content not included)... Normal [facility] Comment on above: Result Comment: Elec tronically Signed By: Bandar ROGERS MD\.br\Date and Time Signed: 04/07/24 08:25 EDT\.br\Electronically Co-Signed By: Brigitte Mixon\.br\Date and Time Co-Signed: 04/07/24 08:[address] ANGIO CHEST WO AND/OR W C [facility] 01-26-2024 CT ANGIO CHEST WO AND/OR [...] Self Edit Transcribed Date: 01/26/2024 15:25 [address] [facility] [address] Angio Chest wo and/or w [facility] 01-26-2024 1. No comparison films are available. [...] By: Self Edit Transcribed Date: 01/26/2024 15:25 POWERSCRIBE EXAMINATION TYPE: CT ANGIO CHEST WO AND/OR [...] gallbladder wall thickening or pericystic fluid collection. Kemal Sinha MD - 01/26/2024 EXAMINATION TYPE: CT ANGIO [...] By: Self Edit Transcribed Date: 01/26/2024 15:25 [employer] Creatinine (Bld) [Moles/Vol] on 01-26-2024 Creatinine [Mass/Vol] 0.9 mg/dL Normal 0.6-1.3 [facility] Comment on above: Performed By: #### 5 [id number] #### [facility] [address] [place] [address] GFR/1.73 sq M.predicted among non-blacks MDRD (S/P/Bld) [Vol rate/Area] 87 mL/min/{1.73_m2} Normal >=60 [facility] Comment on above: Performed By: #### 5 [id number] #### [facility] [place] [facility] LAB [address] [place] [address] Creatinine [Mass/Vol] 0.9 mg/dL 0.6 - 1.3 mg/dL [facility] GFR/1.73 sq M.predicted among non-blacks MDRD (S/P/Bld) [Vol rate/Area] 87 mL/min/{1.73_m2} - PINF [facility] Interpretation and review of laboratory results [facility] Summaryon 0 01-21-2024 Ambulatory Visit Summary DANIEL CLEMENTE JR :1955 Visit Date:01/21/2024 Ambulatory Visit Instructions Your Diagnosis Elevated PSA BPH with obstruction/lower urinary tract symptoms Prostatitis Family history of prostate cancer in father Former smoker Aspirin long-term use Your Care Team Attending Physician - REGINA SANTANA, Bandar Dash Primary Care Physician - RAO SANTANA, GARY Jacob This Is Your Medications List ciprofloxacin (Cipro [...] SANTANA, Bandar Dash Where: [facility] Lab Reportson 01-21-2024 Lab Reports [id number] [facility] Patient Educationon 01-21-20 Patient Education Oncology Transrectal [...] near your rectum, especially while sitting. ? Turah-colored urine due to small amounts of blood in your urine. ? A burning feeling while urinating. ? Blood in your stool (feces) or bleeding from your rectum. ? Blood in your semen. Follow these instructions at home: Medicines ? Take zlpy-arb-jjrrfur and prescription medicines only as told by [...] provider. Document Revised: 03/25/2022 Document Reviewed: 03/25/2022 [employer] Patient Education ? 2022 [employer] Transrectal Ultrasound-Guided Prostate Biopsy A transrectal [...] including vitamins, herbs, eye drops, creams, and wbpe-upp-zewcxlc medicines. ? Any problems you or family [...] as aspirin (more content not included)... Normal [facility] Urology Office/Clinic Noteon 01-21-2024 Urology Office/Clinic Note Chief Complaint 3 mo f/u w/ PSA HPI Staff 3 mo f/u W/ PSA Dx: BPH w/ obstruction/lower urinary tract sx's, prostatitis, elevated PSA, asymptomatic microscopic hematuria, family hx of prostate cancer (father), former smoker, aspirin long-term use Dutasteride 0.5mg QD, Alfuzosin 10mg QD, Tadalafil 5mg QD Spoke with patient and having PSA drawn 01/19 @ [facility] lab Dysuria: denies Incomplete bladder emptying: [...] malignant neoplasm of prostate) Father passed from [place]. [1] Also reports his uncle had prostate cancer. 5. Former smoker (Z87.891: Personal history of nicotine dependence) Smoked cigarettes 1976 - 2006. Risk factor for urothelial ca. [2] 6. 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 [3] Advised pt to stop aspirin a few days prior to TRUS/bx. Risks discussed. Follow-up With When Contact Information REGINA SANTANA, Bandar Dash, URL [facility] [address] [place] [phone] Additional Instructions: sched TRUS/bx Patient Education Transrectal Ultrasound-Guided Prostate Biopsy, Care After Transrectal Ultrasound-Guided Prostate Biopsy IGretel, personally scribed for Dr. Rogers on 01/21/2024 17:33:57. . Documentation recorded by the scribe, Gretel Yeh, accurately reflects the services(s) I performed and decisions made by me. Authenticated by Dr. Rogers on 01/21/2024 17:36:01. Problem List/Past Medical H (more content not included)... Normal [facility] Comment on above: Result Comment: Elec tronically Signed By: Bandar ROGERS MD\.br\Date and Time Signed: 01/21/24 17:36 EDT\.br\Electronically Co-Signed By: Gretel Yeh\.br\Date and Time Co-Signed: 01/21/24 17:34 EDT ECG 12 lead (MIDMARK)on 12-12 [employer] Formson 10-28-2023 Forms [id number] [facility] Physician Referralon 024 Physician Referral [id number]TI[address] [facility] Ambulatory Visit Summaryon 0 10-27-2023 Ambulatory Visit Summary LEELEE RIDDLEDANIEL :1955 Visit Date:10/27/2023 Ambulatory Visit Instructions Your Diagnosis BPH with obstruction/lower urinary tract symptoms Prostatitis Elevated PSA Asymptomatic microscopic hematuria Family history of prostate cancer in father Former smoker Aspirin long-term use Tests Performed Urnls Dip Stick Auto w/o Microscopy POC [id number] Your Care Team Attending Physician - Bandar [...] Follow-Up Appointments Friday 8:45 AM EDT With: Bandar ROGERS MD Where: [facility] Karlo Normal [facility] Patient Educationon 10-27-19 24 Patient Education Infectious Disease Prostatitis Prostatitis is [...] these instructions at home: Medicines ? Take fwxx-vfc-dieelct and prescription medicines only as told by [...] Where to find more information ? National [place] of Diabetes and Digestive and Kidney Diseases: (more content not included)... Normal [facility] Exercise nuclear stress test with myocardial perfusionOrdered By: Mike Madrigal on 06-04-2022 ACT Kaolin induced method (PPP) 9 [facility] Work Phone: ACT Kaolin induced method (PPP) [Relative time] 48147.0 mmHg*bpm [facility] Work Phone: Angina Index 0 [facility] Work Phone: Baseline DBP 93 mmHg [facility] Work Phone: Baseline HR 56 bpm [facility] Work Phone: Baseline SBP 157 mmHg [facility] Work Phone: Body surface area Derived from formula 2.12 m2 [facility] Work Phone: Estimated workload 11.2 METS [facility] Work Phone: Exercise/injection duration (sec) 57 [facility] Work Phone: Nuc Stress EDV 113.0 mL [facility] Work Phone: Nuc Stress ESV 38.0 mL [facility] Work Phone: Nucleated RBC/100 WBC (Bld) [Ratio] 66 % [facility] Work Phone: Peak DBP 105 mmHg [facility] Work Phone: Peak HR 115 bpm [facility] Work Phone: Peak SBP 205 mmHg [facility] Work Phone: Percent HR 75 % [facility] Work Phone: Target HR 131 bpm [facility] Work Phone: Exercise nuclear stress test with myocardial [...] Eldridge on 06-04-2022 Ao VTI 34.6 cm [employer] Phone: Aortic Root 3.3 cm [facility] Work Phone: Aortic Root Index 1.57 cm/m2 [employer] Phone: Ascending Aorta 4.2 cm [facility] Work Phone: AV Area Continuity Equation 4.1 cm2 [employer] Phone: AV Area Peak Velocity 3.9 cm2 [employer] Phone: AV Mean Gradient 4 mmHg [employer] Phone: AV Peak Gradient 8 mmHg [employer] Phone: AV Peak Sterling 1.4 m/s [employer] Work Phone: AV Velocity Ratio 0.93 [employer] Phone: HERMAN Index (Pk Sterling) 1.86 cm2/m2 [employer] Phone: HERMAN Index (VTI) 1.95 cm2/m2 [employer] Phone: Body surface area Derived from formula 2.12 m2 H?REL [facility] Work Phone: E Wave Deceleration Time 201 ms 119 - 242 ms [employer] Phone: E/E' Ratio Averaged 12 [employer] Work Phone: E/E' Ratio Lateral 10 [facility] Work Phone: E/E' Ratio Septal 14 [facility] [employer] Work Phone: Ejection Fraction (3D) 56 % [facility] [employer] Work Phone: Est. RA Pressure 3 mmHg [employer] Work Phone: FS 25 % [facility] [employer] Work Phone: Global Longitudinal Strain -21.2 % [employer] Work Phone: Interpretation and review of laboratory results Abnormal [employer] Work Phone: IVC Proximal 1.2 cm [facility] Work Phone: IVSD 1.0 cm 0.6 - 1.0 cm [employer] Work Phone: LA Area Sys (A2C) 22 cm2 [employer] Work Phone: LA Area Sys (A4C) 23 cm2 [facility] [employer] Work Phone: LA Dimension Index 2D 1.9 cm/m2 [employer] Work Phone: LA Size 4.0 cm [facility] [employer] Work Phone: LA Volume (BP) 70 mL Neisha [employer] [facility] Work Phone: LA Volume Index (BP) 33 mL/m2 [facility] Work Phone: LA/Ao Ratio 1.2 [facility] Work Phone: Left Atrium Major [place] 5.8 cm [facility] [employer] Work Phone: Left Atrium Minor [place] 5.9 cm [facility] [employer] Work Phone: LV Jurado Vol 3D 182 mL [employer] [facility] Work Phone: LV EDV Index (3D) 87 mL/m2 [employer] Work Phone: LV ESV Index (3D) 38 mL/m2 [facility] [employer] Work Phone: LV Mass 2D 148 g [employer] Work Phone: LV Mass 3D 178 g [employer] Work Phone: LV Mass Index 2D 70 g/m2 [employer] Work Phone: LV Mass Index 3D 85 g/m2 [employer] Work Phone: LV Sys Vol 3D 80 mL [facility] Work Phone: LVIDD 4.4 cm 4.2 - 5.8 cm [facility] Work Phone: LVIDD Index 2.10 cm/m2 [facility] Work Phone: LVIDS 3.3 cm 2.5 - 4.0 cm [employer] Work Phone: LVIDS Index 1.57 cm/m2 [facility] Work Phone: LVOT Area 4.2 cm2 [employer] Work Phone: LVOT Diameter 2.3 cm [facility] Work Phone: LVOT flow 415 mL/s [employer] Work Phone: LVOT Mean Grad 4 mmHg [facility] Work Phone: LVOT Mean Sterling 1.0 m/s [facility] Work Phone: LVOT Peak Gradient 7 mmHg [facility] Work Phone: LVOT Peak Sterling 1.3 m/s [facility] Work Phone: LVOT Peak VTI 34.2 cm [facility] Work Phone: LVOT Stroke Index 68 mL/m2 [employer] Work Phone: LVOT Stroke Volume 142 mL [facility] [employer] Work Phone: LVOT:AV VTI Index 0.99 [employer] Work Phone: LVPWD 1.0 cm 0.6 - 1.0 cm [employer] Work Phone: Microscopic observation Charly (Ear) [Interp] 0.9 [employer] Phone: MV E' Tissue Velocity Lateral 10 cm/s [employer] Phone: MV E' Tissue Velocity Septal 7 cm/s [employer] Phone: MV Peak A Sterling 1.03 m/s [facility] Work Phone: MV Peak E Sterling 0.96 m/s [facility] Work Phone: PV Peak Gradient 3 mmHg [employer] Phone: PV Peak Velocity 0.9 m/s [employer] Phone: Relative Wall Thickness ratio 0.45 [employer] Phone: Right Ventricular Peak Systolic Pressure 26 mmHg [employer] Phone: RV Diastolic Basal Dimension 4.4 cm Abnormal 2.5 - 4.1 cm [employer] Phone: RV Diastolic Length 8.5 cm Abnormal 5.9 - 8.3 cm [facility] [employer] Phone: RV Diastolic Mid Dimension 3.4 cm 1.9 - 3.5 cm [employer] Phone: TR Peak Gradient 23 mmHg [employer] Phone: TR Peak Velocity 2.39 m/s [employer] Phone: [employer] Phone: Transthoracic echocardiogram (TTE) complete with PRN [...] The underlying ECG rhythm was sinus rhythm. PACS ECG 12 lead (MIDMARK)on 05-13 [facility] Sinus Bradycardia Low voltage in limb leads. -Peaked anterior T-waves -consider hyperkalemia. ABNORMAL [facility] Complete Blood Counton 02-04 Erythrocyte distribution width (RBC) [Ratio] 12.8 % Normal 11.0-15.0 [facility] [employer] Comment on above: Performed By: #### T SH reflex FT4, LIPD, CMP, CBC #### [facility] [address] [place], [place] [id number] Hematocrit (Bld) [Volume fraction] 46.3 % Normal 38.5-50.0 [facility] [employer] Comment on above: Performed By: #### T SH reflex FT4, LIPD, CMP, CBC #### [facility] [address], [place] [id number] Hemoglobin (Bld) [Mass/Vol] 15.6 g/dL Normal 13.0-17.1 [facility] [employer] Comment on above: Performed By: #### T SH reflex FT4, LIPD, CMP, CBC #### [facility] [address], [place] [id number] MCH (RBC) [Entitic mass] 31.0 pg Normal 27.0-33.0 [facility] Comment on above: Performed By: #### T SH reflex FT4, LIPD, CMP, CBC #### [facility] [address], [place] [id number] MCHC (RBC) [Mass/Vol] 33.7 g/dL Normal 32.0-36.0 [facility] Special[facility] Comment on above: Performed By: #### T SH reflex FT4, LIPD, CMP, CBC #### [facility] [address], [place] [id number] MCV (RBC) [Entitic vol] 92 fL Normal 80-100 [facility] Comment on above: Performed By: #### T SH reflex FT4, LIPD, CMP, CBC #### [facility] [address], [place] [id number] Platelet mean volume (Bld) [Entitic vol] 10.80 fL Normal 7.50-12.50 [facility] Comment on above: Performed By: #### T SH reflex FT4, LIPD, CMP, CBC #### [facility] [address] [place], [place] [id number] Platelets (Bld) [#/Vol] 218 10*3/uL Normal 140-400 [facility] Comment on above: Performed By: #### T SH reflex FT4, LIPD, CMP, CBC #### [facility] [address], [place] [id number] RBC (Bld) [#/Vol] 5.03 10*6/uL Normal 4.20-5.80 [facility] Comment on above: Performed By: #### T SH reflex FT4, LIPD, CMP, CBC #### [facility] [address], [place] [id number] RDW-SD 43.3 fL Normal 37.0-50.0 [facility] Comment on above: Performed By: #### T SH reflex FT4, LIPD, CMP, CBC #### [facility] [address], [place] [id number] WBC (Bld) [#/Vol] 8.1 10*3/uL Normal 3.8-11.0 Carli rn [place] [employer] Comment on above: Performed By: #### T SH reflex FT4, LIPD, CMP, CBC #### [facility] [address] [place], [place] [id number] Comprehensive Metabolic Pane luis enrique 02-04-2022 Albumin [Mass/Vol] 4.4 g/dL Normal 3.6-5.1 Carli rn [place] [employer] Comment on above: Performed By: #### T SH reflex FT4, LIPD, CMP, CBC #### [facility] [address] [place], [place] [id number] Albumin/Globulin [Mass ratio] 2.1 {ratio} Normal 1.0-2.5 [facility] Comment on above: Performed By: #### T SH reflex FT4, LIPD, CMP, CBC #### [facility] [address] [place], [place] [id number] ALP [Catalytic activity/Vol] 74 U/L Normal 40-129 [facility] Comment on above: Performed By: #### T SH reflex FT4, LIPD, CMP, CBC #### [facility] [address] [place], [place] [id number] ALT [Catalytic activity/Vol] 22 U/L Normal 9-46 [facility] Comment on above: Result Comment: 09/12 Female reference range changed. Performed By: #### T SH reflex FT4, LIPD, CMP, CBC #### [facility] [address], [place] [id number] Anion gap [Moles/Vol] 15 mmol/L Normal 12-20 [facility] Comment on above: Result Comment: Effe ctive 10/18/2019 reference range changed. Performed By: #### T SH reflex FT4, LIPD, CMP, CBC #### [facility] [address], [place] [id number] AST [Catalytic activity/Vol] 22 U/L Normal 10-40 [facility] Comment on above: Performed By: #### T SH reflex FT4, LIPD, CMP, CBC #### [facility] [address], [place] [id number] Bilirubin [Mass/Vol] 0.44 mg/dL Normal 0.30-1.20 [facility] Comment on above: Performed By: #### T SH reflex FT4, LIPD, CMP, CBC #### [facility] [address], [place] [id number] BUN/CREA 31 Ratio High 6-22 [facility] Comment on above: Performed By: #### T SH reflex FT4, LIPD, CMP, CBC #### [facility] [address] [place], [place] [id number] Calcium [Mass/Vol] 9.3 mg/dL Normal 8.6-10.2 [facility] Comment on above: Performed By: #### T SH reflex FT4, LIPD, CMP, CBC #### [facility] [address], [place] [id number] Chloride [Moles/Vol] 108 mmol/L High 98-107 [facility] Comment on above: Performed By: #### T SH reflex FT4, LIPD, CMP, CBC #### [facility] [address], [place] [id number] CO2 [Moles/Vol] 26 mmol/L Normal 20-31 [facility] Comment on above: Performed By: #### T SH reflex FT4, LIPD, CMP, CBC #### [facility] [address], [place] [id number] Creatinine [Mass/Vol] 0.7 mg/dL Normal 0.7-1.4 [facility] Comment on above: Performed By: #### T SH reflex FT4, LIPD, CMP, CBC #### [facility] [address] [place], [place] [id number] eGFRAA 139 mL/min/1.73m2 Normal >[address] [facility] Specialist Comment on above: Performed By: #### T SH reflex FT4, LIPD, CMP, CBC #### [facility] [address], [place] [id number] eGFRNAA 115 mL/min/1.73m2 Normal >[address] [facility] Specialist Comment on above: Performed By: #### T SH reflex FT4, LIPD, CMP, CBC #### [facility] [address], [place] [id number] Globulin (S) [Mass/Vol] 2.1 g/dL Normal 1.9-3.7 [facility] [employer] Comment on above: Performed By: #### T SH reflex FT4, LIPD, CMP, CBC #### [facility] [address], [place] [id number] Glucose [Mass/Vol] 104 mg/dL High 65-99 Carli mendez [place] [employer] Comment on above: Result Comment: For FASTING Glucose --- ADA reference ranges: Normal 65-99 mg/dl Prediabetes 100-125 Diabetes >/= 126 Performed By: #### T SH reflex FT4, LIPD, CMP, CBC #### [facility] [address], [place] [id number] Potassium [Moles/Vol] 4.5 mmol/L Normal 3.5-5.5 [facility] [employer] Comment on above: Performed By: #### T SH reflex FT4, LIPD, CMP, CBC #### [facility] [address], [place] [id number] Protein [Mass/Vol] 6.5 g/dL Normal 6.1-8.1 [facility] [employer] Comment on above: Performed By: #### T SH reflex FT4, LIPD, CMP, CBC #### [facility] [address], [place] [id number] Sodium [Moles/Vol] 144 mmol/L Normal 135-146 [facility] [employer] Comment on above: Performed By: #### T SH reflex FT4, LIPD, CMP, CBC #### [facility] [address], [place] [id number] Urea nitrogen [Mass/Vol] 22 mg/dL Normal 7-25 [facility] [employer] Comment on above: Performed By: #### T SH reflex FT4, LIPD, CMP, CBC #### [facility] [address], [place] [id number] Lipid Panelon 02-04-2022 Cholesterol [Mass/Vol] 127 mg/dL Normal 125-200 [facility] [employer] Comment on above: Result Comment: Low risk < 200mg/dL Borderline risk 201-239 mg/dl High risk > or equal to 240 Performed By: #### T SH reflex FT4, LIPD, CMP, CBC #### [facility] [address], [place] [id number] Cholesterol in HDL [Mass/Vol] 40 mg/dL Low >40 [facility] Comment on above: Result Comment: High Cardiovascular Risk HDL <40 mg/dL Low Cardiovascular Risk HDL > or equal to 60 mg/dl Performed By: #### T SH reflex FT4, LIPD, CMP, CBC #### [facility] [address], [place] [id number] Cholesterol in LDL [Mass/Vol] 72 mg/dL Normal [facility] Comment on above: Result Comment: LDL ATP III CLASSIFICATION LDL less than 100 mg/dl Optimal LDL 100-129 mg/dl Near or above optimal LDL 130-159 Borderline high LDL 160-189 High LDL greater than 189 mg/dl Very High Performed By: #### T SH reflex FT4, LIPD, CMP, CBC #### [facility] [address], [place] [id number] Cholesterol in VLDL [Mass/Vol] 15 mg/dL Normal [facility] Comment on above: Performed By: #### T SH reflex FT4, LIPD, CMP, CBC #### [facility] [address], [place] [id number] Cholesterol.total/Ch olesterol in HDL [Mass ratio] 3 {ratio} Normal [facility] Comment on above: Performed By: #### T SH reflex FT4, LIPD, CMP, CBC #### [facility] [address], [place] [id number] Triglyceride [Mass/Vol] 75 mg/dL Normal 30-150 [facility] Comment on above: Result Comment: TRIG ATPIII CLASSIFICATIONS TRIG less than 150 mg/dl Normal TRIG 150-199 mg/dl Borderline High TRIG 200-500 mg/dl High TRIG greather than 500 mg/dl Very High Performed By: #### T SH reflex FT4, LIPD, CMP, CBC #### [facility] [address], [place] [id number] PSA SCREEN (MEDICARE)on 01-12 TPSA 3.880 ng/mL Normal <4.000 [facility] [employer] Comment on above: Result Comment: PSA Test Method: ECLIA/Jeremy e 601 Performed By: #### P SA #### [facility] [address], [place] [id number] TSH w/ Reflex to Free T4on 0 02-04-2022 TSH 2.530 uIU/mL Normal 0.400-4.500 [facility] [employer]st Comment on above: Performed By: #### T SH reflex FT4, LIPD, CMP, CBC #### [facility] [address], [place] [id number] CT CHEST WO CONon 12-24-2021 CT CHEST [...] by: MATT SIMMS Date: 2021-12-24 11:02 Normal [facility] CT LUNG CANCER SCREENINGon 0 01-17-2021 CT [...] by: CADEN KEMP Date: 2021-01-17 10:34 Normal [facility] US ABD AORTA SCREENINGon US ABD AORTA [...] by: CADEN KEMP Date: 2021-01-17 10:00 Normal [facility] AST/SGOTon 09-03-2019 AST [Catalytic activity/Vol] 20 Units/L Normal 15-41 [facility] Comment on above: Performed By: #### 1 920-8, 2157-6, 05565-5 #### [facility] [address] [place] [address] Creatine Kinase (CK)on 09-03 CK [Catalytic activity/Vol] 46 Units/L Normal 21-232 [facility] Comment on above: Performed By: #### 1 920-8, 2157-6, 42206-9 #### [facility] [address] [place] [address] Lipid Panelon 09-03-2019 Cholesterol [Mass/Vol] 121 mg/dL Normal <200 [facility] Comment on above: Result Comment: Refe r to the National Cholesterol Education Program ATP III cut offs for risk stratification. Performed By: #### 1 920-8, 6, 88548-4 #### [facility] [address] [place] [address] Cholesterol in HDL [Mass/Vol] 35 mg/dL Low >40 [facility] Comment on above: Performed By: #### 1 920-8, 2157-03, 74985-3 #### [facility] [address] [place] [address] Cholesterol in LDL [Mass/Vol] 67 mg/dL Normal <100 [facility] Comment on above: Performed By: #### 1 920-8, 2157-03, 45661-4 #### [facility] [address] [place] [address] Cholesterol in VLDL [Mass/Vol] 19 mg/dL Normal 2-38 [facility] Comment on above: Performed By: #### 1 920-8, 2157-03, 69351-4 #### [facility] [address] [place] [address] Triglyceride [Mass/Vol] 94 mg/dL Normal <200 [facility] Comment on above: Performed By: #### 1 920-8, 2157-03, 82071-2 #### [facility] [address] [place] [address] Vital Signs Date Time Vital Sign Value Performing Clinician Facility 01-18-2025 15:51-0400 Body height 182.9 cm Luis Summers DO Work Phone: [facility] 01-18-2025 15:51-0400 Body mass index (BMI) [Ratio] 28.35 kg/m2 Luis Summers DO Work Phone: [facility] 01-18-2025 15:51-0400 Body weight 94.8 kg Luis Summers DO Work Phone: [facility] 01-18-2025 15:51-0400 Diastolic blood pressure 90 mm[Hg] Luis Summers DO Work Phone: [facility] 01-18-2025 15:51-0400 Systolic blood pressure 135 mm[Hg] Luis Summers DO Work Phone: [facility] 10-25-2024 11:22-0500 Body height 182.9 cm Arnold Brumeganel BRANDING MACHINE TENDER Work Phone: [facility] 10-25-2024 11:22-0500 Body mass index (BMI) [Ratio] 28.35 kg/m2 Arnold Brummel BRANDING MACHINE TENDER Work Phone: [facility] 10-25-2024 11:22-0500 Body temperature 97.2 [degF] Arnold Mendezmmel BRANDING MACHINE TENDER Work Phone: [facility] 10-25-2024 11:22-0500 Body weight 94.8 kg Arnold Brummel BRANDING MACHINE TENDER Work Phone: [facility] 10-25-2024 11:22-0500 Diastolic blood pressure 75 mm[Hg] Arnold Brummel BRANDING MACHINE TENDER Work Phone: [facility] 10-25-2024 11:22-0500 Heart rate 67 /min Arnold Brummel BRANDING MACHINE TENDER Work Phone: [facility] 10-25-2024 11:22-0500 Respiratory rate 16 /min Arnold Brummel BRANDING MACHINE TENDER Work Phone: [facility] 10-25-2024 11:22-0500 SaO2% (BldA) [Mass fraction] 95 % Arnold Brummel BRANDING MACHINE TENDER Work Phone: [facility] 10-25-2024 11:22-0500 Systolic blood pressure 132 mm[Hg] Arnold Brummel BRANDING MACHINE TENDER Work Phone: [facility] 08-24-2024 13:37-0500 Body height 182.9 cm Barbara Hemmer PA Work Phone: [facility] 08-24-2024 13:37-0500 Body temperature 97.7 [degF] Barbara Guevaramer PA Work Phone: [facility] 08-24-2024 13:37-0500 Diastolic blood pressure 72 mm[Hg] Barbara Guevaramer PA Work Phone: [facility] 08-24-2024 13:37-0500 Heart rate 68 /min Barbara Guevaramer PA Work Phone: [facility] 08-24-2024 13:37-0500 SaO2% (BldA) [Mass fraction] 96 % Barbara Guevaramer PA Work Phone: [facility] 08-24-2024 13:37-0500 Systolic blood pressure 130 mm[Hg] Barbara Guevaramer PA Work Phone: [facility] 07-12-2024 11:47-0400 Diastolic blood pressure 94 mm[Hg] II Gary Yeh Work Phone: [facility] 07-12-2024 11:47-0400 Heart rate 52 /min II Gary Yeh Work Phone: [facility] 07-12-2024 11:47-0400 Respiratory rate 16 /min II Gary Yeh Work Phone: [facility] 07-12-2024 11:47-0400 SaO2% (BldA) [Mass fraction] 99 % II Gary Yeh Work Phone: [facility] 07-12-2024 11:47-0400 Systolic blood pressure 168 mm[Hg] II Gary Yeh Work Phone: [facility] 07-12-2024 09:11-0400 Body height 182.88 cm II Gary Yeh Work Phone: [facility] 07-12-2024 09:11-0400 Body weight 86.18 kg II Gary Yeh Work Phone: [facility] 06-07-2024 09:18-0400 Body mass index (BMI) [Ratio] 27.1 kg/m2 Gary Yeh MD Work Phone: [facility] 06-07-2024 09:18-0400 Body weight 90.63 kg Gary Yeh MD Work Phone: [facility] 06-07-2024 09:18-0400 Diastolic blood pressure 85 mm[Hg] Gary Yeh MD Work Phone: [facility] 06-07-2024 09:18-0400 Heart rate 70 /min Gary Yeh MD Work Phone: [facility] 06-07-2024 09:18-0400 Respiratory rate 16 /min Gary Yeh MD Work Phone: [facility] 06-07-2024 09:18-0400 SaO2% (BldA) [Mass fraction] 97 % Gary Yeh MD Work Phone: [facility] 06-07-2024 09:18-0400 Systolic blood pressure 140 mm[Hg] Gary Yeh MD Work Phone: [facility] 04-28-2024 10:17-0400 Blood Pressure Location [facility] 04-28-2024 10:17-0400 Body temperature 98.6 [degF] [facility] ROG[facility] 04-28-2024 10:17-0400 Diastolic blood pressure 83 mm[Hg] Bandar ROGERS [facility] 04-28-2024 10:17-0400 Heart rate 75 /min [facility] ROG[facility] 04-28-2024 10:17-0400 Respiratory rate 16 /min [facility] ROG[facility] 04-28-2024 10:17-0400 Systolic blood pressure 138 mm[Hg] Bandar ROGERS [facility] 04-07-2024 07:35-0400 Blood Pressure Location [facility] R[facility] 04-07-2024 07:35-0400 Body temperature 98.6 [degF] [facility] ROG[facility] 04-07-2024 07:35-0400 Diastolic blood pressure 73 mm[Hg] [facility] ROG[facility] 04-07-2024 07:35-0400 Heart rate 65 /min [facility] 04-07-2024 07:35-0400 Respiratory rate 16 /min [facility] 04-07-2024 07:35-0400 Systolic blood pressure 134 mm[Hg] [facility] R[facility] 01-21-2024 16:32-0400 Blood Pressure Location [facility] 01-21-2024 16:32-0400 Body temperature 98.24 [degF] [facility] ROG[facility] 01-21-2024 16:32-0400 Diastolic blood pressure 84 mm[Hg] Bandar ROGERS [facility] 01-21-2024 16:32-0400 Heart rate 65 /min [facility] R[facility] 01-21-2024 16:32-0400 Respiratory rate 16 /min [facility] R[facility] 01-21-2024 16:32-0400 Systolic blood pressure 132 mm[Hg] [facility] 01-02-2024 13:56-0400 Body mass index (BMI) [Ratio] 27.06 kg/m2 Tom Harrison MD Work Phone: [facility] 01-02-2024 13:56-0400 Body weight 90.63 kg Tom Harrison MD Work Phone: [facility] 01-02-2024 13:56-0400 Diastolic blood pressure 82 mm[Hg] Tom Harrison MD Work Phone: [facility] 01-02-2024 13:56-0400 Heart rate 66 /min Tom Harrison MD Work Phone: [facility] 01-02-2024 13:56-0400 Respiratory rate 16 /min Tom Harrison MD Work Phone: [facility] 01-02-2024 13:56-0400 Systolic blood pressure 136 mm[Hg] Tom Harrison MD Work Phone: [facility] 10-27-2023 09:25-0500 Blood Pressure Location [facility] 10-27-2023 09:25-0500 Diastolic blood pressure 86 mm[Hg] [facility] ROG[facility] 10-27-2023 09:25-0500 Heart rate 80 /min [facility] R[facility] 10-27-2023 09:25-0500 Respiratory rate 16 /min [facility] ROG[facility] 10-27-2023 09:25-0500 Systolic blood pressure 136 mm[Hg] Bandar ROGERS [facility] 06-04-2022 07:47-0400 Body height 183 cm 3 [facility] 06-04-2022 07:47-0400 Body mass index (BMI) [Ratio] 26.28 kg/m2 3 [facility] 06-04-2022 07:47-0400 Body weight 88 kg 3 [facility] 06-04-2022 07:47-0400 Diastolic blood pressure 79 mm[Hg] 3 [facility] 06-04-2022 07:47-0400 Systolic blood pressure 136 mm[Hg] 3 [facility] 06-04-2022 07:36-0400 Body height 182.9 cm 1 [facility] 06-04-2022 07:36-0400 Body mass index (BMI) [Ratio] 26.31 kg/m2 1 [facility] 06-04-2022 07:36-0400 Body weight 88 kg 1 [facility] 05-27-2022 11:06-0400 Body height 182.9 cm Tom Harrison MD Work Phone: [facility] 05-27-2022 11:06-0400 Body mass index (BMI) [Ratio] 26.31 kg/m2 Tom Harrison MD Work Phone: [facility] 05-27-2022 11:06-0400 Body weight 88 kg Tom Harrison MD Work Phone: [facility] 05-27-2022 11:06-0400 Diastolic blood pressure 79 mm[Hg] Tom Harrison MD Work Phone: [facility] 05-27-2022 11:06-0400 Heart rate 62 /min Tom Harrison MD Work Phone: [facility] 05-27-2022 11:06-0400 Systolic blood pressure 136 mm[Hg] Tom Harrison MD Work Phone: [facility] Encounters Encounter Date Encounter Type Care Provider Facility Start: 01-18-2025 End: 01-18-2025 ambulatory LUIS SUMMERS Not Available Start: 01-18-2025 End: 01-18-2025 Office outpatient visit 25 minutes Luis Summers DO Work Phone: [facility] Comment on above: Bilious vomiting wit h nausea (Primary Dx); Calculus of gallbladder with acute on chronic cholecystitis without obstruction Start: 12-27-2024 ambulatory Bandar R ROGERS Facili ty:[facility] Start: 12-13-2024 End: 12-13-2024 ambulatory GARY YEH Not Available Start: 12-13-2024 End: 12-13-2024 Bamboo flowsheet Gary Yeh MD Work Phone: [facility] Start: 12-13-2024 End: 12-13-2024 Bamboo flowsheet Gary Yeh MD Work Phone: [facility] Start: 12-06-2024 ambulatory Bandar R ROGERS Facili ty:[facility] Start: 11-19-2024 ambulatory Bandar R ROGERS Facili ty:[facility] [place] Start: 11-01-2024 ambulatory Bandar R ROGERS Facili ty:[facility] [place] Start: 10-28-2024 ambulatory Bandar R ROGERS Facili ty:[id number] Start: 10-25-2024 End: 10-25-2024 Telephone encounter Eva Webster RN [facility] Comment on above: cardiac clearance Start: 10-25-2024 End: 10-25-2024 Office outpatient visit 25 minutes Arnold Josue NP Work Phone: [facility] Comment on above: Pre-op exam (Primary Dx); Chronic ischemic heart disease; Ascending aorta dilatation (CMS/HCC) Start: 10-25-2024 End: 10-25-2024 Patient encounter procedure Arnold Josue NP Work Phone: [facility] Start: 10-25-2024 End: 10-25-2024 Preprocedural examination done Arnold Josue NP Work Phone: [facility] Start: 10-25-2024 End: 10-25-2024 ambulatory BRUMMEL ARNOLD~[id number] BRUMMEL BRUMMEL ARNOLD~[id number] [facility] Start: 10-25-2024 Encounter for other preprocedural examination BRUMMEL ARNOLD~[id number] BRUMMEL BRUMMEL ARNOLD~[id number] [facility] Start: 10-05-2024 End: 10-05-2024 Telephone encounter Dominga Wyatt RN [facility] Comment on above: cardiac clearance fo r cystoscopy/TURP on Start: 10-04-2024 End: 10-04-2024 Clinisync Result Encounter Generic External Data Provider [facility] Unsolicited Start: 10-04-2024 End: 10-04-2024 Clinisync Result Encounter Generic External Data Provider [facility] External [facility] Unsolicited Start: 08-24-2024 End: 08-24-2024 Bamboo flowsheet Barbara Spicer PA Work Phone: [facility] Start: 08-24-2024 End: 08-24-2024 Bamboo flowsheet Barbara Spicer PA Work Phone: [facility] Start: 08-24-2024 End: 08-24-2024 ambulatory BARBARA SPICER Not Available Start: 08-24-2024 End: 08-24-2024 Office outpatient visit 15 minutes Barbara Spicer PA Work Phone: [facility] Comment on above: Acute bronchitis, un specified organism (Primary Dx); Acute non-recurrent sinusitis, unspecified location; Impaired fasting glucose Start: 07-15-2024 End: 07-19-2024 Telephone encounter Gary Yeh MD Work Phone: [facility] Start: 07-12-2024 Non-patient / Non-visit II Randy Yeh Work Phone: [facility] Work Phone: Start: 07-12-2024 End: 07-12-2024 Admission to same day surgery center II Gary Yeh Work Phone: [facility] Work Phone: Start: 07-12-2024 End: 07-12-2024 ambulatory II Gary Yeh Work Phone: [facility] Work Phone: Start: 07-05-2024 End: 07-05-2024 ambulatory Bandar ROGERS Facility:[id number] Start: 06-23-2024 End: 06-23-2024 ambulatory GARY YEH Not Available Start: 06-07-2024 End: 06-07-2024 Bamboo flowsheet Gary Yeh MD Work Phone: [facility] Start: 06-07-2024 End: 06-07-2024 Bamboo flowsheet Gary Yeh MD Work Phone: [facility] Start: 06-07-2024 End: 06-07-2024 ambulatory GARY YEH Not Available Start: 06-07-2024 End: 06-07-2024 Assay of hemosiderin, quant Gary Yeh MD Work Phone: [facility] Work Phone: Start: 06-07-2024 End: 06-07-2024 Patient encounter procedure Gary Yeh MD Work Phone: [facility] Comment on above: Routine general medi camilo examination at [facility] (Primary Dx); Medicare annual wellness visit, subsequent; Personal history of nicotine dependence; 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); Panlobular emphysema (CMS/HCC); Atherosclerosis of aorta (CMS/HCC); Mixed hyperlipidemia (CMS/HCC); History of tobacco abuse; Prostate cancer screening; Positive colorectal cancer screening using Cologuard test Start: 04-28-2024 End: 04-28-2024 ambulatory Bandar ROGERS Facility:[facility] Start: 04-28-2024 End: 04-28-2024 Patient encounter procedure Bandar ROGERS [facility] Start: 04-23-2024 ambulatory Bandar R ROGERS Facili ty:[facility] [place] Start: 04-13-2024 End: 04-13-2024 Telephone encounter Dominga Wyatt RN [facility] Comment on above: Levofloxacin Start: 04-07-2024 End: 04-07-2024 Lab Drop off Bandar Ekta REGINA [facility] Start: 04-07-2024 End: 04-07-2024 ambulatory Bandar ROGERS [place] Start: 04-07-2024 End: 04-07-2024 Patient encounter procedure Bandar R REGINA [facility] Start: 03-15-2024 ambulatory Bandar Dash ROGERS Facili ty:[facility] Start: 02-20-2024 ambulatory Bandar Dash ROGERS Facili ty:[facility] Start: 01-26-20[facility] Start: 01-26-2024 End: 01-26-2024 Evaluation and management of inpatient [facility] [address] 1 [facility] Start: 01-26-2024 End: 01-26-2024 Subsequent hospital visit by physician Evelina 1 [facility] Comment on above: Aneurysm of aortic a rch without rupture ([facility]/HCC) Start: 01-23-2024 End: 02-25-2024 Pre-admission assessment Bandar Ekta REGINA [facility] Start: 01-21-2024 End: 01-21-2024 ambulatory Bandar ROGERS Facility:[facility] Start: 01-21-2024 End: 01-21-2024 Patient encounter procedure Bandar ROGERS [facility] Start: 01-02-2024 End: 01-02-2024 Office outpatient visit 25 minutes Tom Harrison MD Work Phone: [facility] Comment on above: Hypertension, unspec ified type (Primary Dx); 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 Start: 10-27-2023 End: 10-27-2023 ambulatory Bandar ROGERS Facility:[facility] Start: 10-27-2023 End: 10-27-2023 Patient encounter procedure Bandar ROGERS [facility] Start: 07-18-2023 ambulatory Bandar ROGERS Facility :[facility] Start: 02-12-2023 End: 02-12-2023 ambulatory II Gary Rao Work Phone: [facility] Work Phone: Start: 02-12-2023 End: 02-12-2023 Patient encounter procedure II Gary Yeh Work Phone: [facility] [place] Work Phone: Start: 10-12-2022 Refill Tom Harrison MD Work Phone: [facility] Comment on above: Coronary arterioscle rosis Start: 10-12-2022 Refmarcus Harrison MD Work Phone: [facility] Start: 07-31-2022 Refill Tom Harrison MD Work Phone: [facility] Comment on above: Coronary arterioscle rosis Start: 07-31-2022 Barrington Harrison MD Work Phone: [facility] Start: 07-30-2022 Refmarcus Harrison MD Work Phone: [facility] Comment on above: Coronary arterioscle rosis Start: 07-30-2022 Refmarcus Harrison MD Work Phone: [facility] Start: 06-22-2022 Refill Tom Harrison MD Work Phone: [facility] Comment on above: Coronary arterioscle rosis Start: 06-22-2022 Barrington Harrison MD Work Phone: [facility] Start: 06-22-2022 Refmarcus Harrison MD Work Phone: [facility] Comment on above: Coronary arterioscle rosis Start: 06-04-2022 End: 06-04-2022 EKG myocardial ischemia 3 [facility] Start: 06-04-2022 End: 06-04-2022 Evaluation and management of inpatient [facility] 3 [facility] Start: 06-04-2022 End: 06-04-2022 Subsequent hospital visit by physician 3 [facility] Comment on above: Pre-operative cardio vascular exam, new EKG abnormalities c/w ischemia Start: 05-27-2022 End: 05-27-2022 EKG myocardial ischemia Tom Harrison MD Work Phone: [facility] Start: 05-27-2022 End: 05-27-2022 Office outpatient visit 25 minutes Tom Harrison MD Work Phone: [facility] Comment on above: Hypertension, unspec ified type (Primary Dx); Pre-operative cardiovascular exam, new EKG abnormalities c/w ischemia Start: 05-27-2022 End: 05-27-2022 Patient encounter procedure Tom Harrison MD Work Phone: [facility] Start: 04-11-2022 Refill Dominga Wyatt RN [facility] Comment on above: Coronary arterioscle rosis Start: 04-11-2022 Refill Dominga Wyatt RN [facility] Start: 12-24-2021 End: 12-25-[address] GARY YEH Facility:[facility] Start: 09-13-2021 Refill Dominga Wyatt RN [facility] Comment on above: Coronary arterioscle rosis (Primary Dx) Start: 09-13-2021 End: 09-13-2021 Refill Dominga Wyatt RN [facility] Start: 07-24-[address] GARY YEH Facilit y:[facility] Start: 01-17-2021 End: 01-18-[address] GARY YEH Facility:[facility] Procedures Date Procedure Procedure Detail Performing Clinician Start: 10-25-2024 Ecg routine ecg w/le ast 12 lds w/i&r Arnold Josue NP Work Phone: Start: 10-04-2024 ALL CBC WITH AUTO DIFF Generic External Data Provider Start: 07-12-2024 End: 07-12-2024 Colonoscopy II Gary Yeh Work Phone: Start: 06-07-2024 Adult depression scr eening assessment Eva Webster RN Start: 04-07-2024 Transrectal needle b iopsy of [...] Phone: Procedure on back [facility]UM[facility] Tonsillectomy [facility]ar ROGERS Plan of Treatment Date Care Activity Detail Author Start: 07-12-2034 Screening for malign ant neoplasm of colon [facility] Start: 07-30-2029 Lipid panel Cholesterol Sc reening (Lipid Panel) [facility] Start: 06-01-2027 Screening for malign ant neoplasm of colon [facility] Start: 02-04-2027 Lipid panel Cholesterol Sc reening (Lipid Panel) [facility] Start: 07-30-2025 Hypertension/CHF/CAD Annual BMP Blood Test Hypertension/CHF/CAD Annual BMP Blood Test [facility] Start: 06-15-2025 End: 06-15-2025 Patient encounter procedure 06/15/2025 8:30 AM EDT Office Visit [facility] [address] [facility] [address] [place] [id number] Gary Yeh MD 112 [facility] [address] [place] [address] [facility] Start: 06-13-2025 Influenza vaccination Influenz a Vaccine (Season Ended) [facility] Start: 06-07-2025 Adolescent depressio n screening assessment Depression Screening [facility] Start: 06-07-2025 Medicare Annual Wellness (AWV) Medicare Annual Wellness (AWV) [facility] Start: 02-21-2025 End: 02-21-2025 Patient encounter procedure 02/21/2025 8:00 AM EDT Office Visit [facility] Chief [address] [place] [address] Tom Harrison MD [address] [place] [address] [address] [place] [address] [facility] Start: 01-25-2025 Hypertension/CHF/CAD Annual BMP Blood Test Hypertension/CHF/CAD Annual BMP Blood Test [facility] Start: 12-13-2024 End: 12-13-2024 Patient encounter procedure 12/13/2024 3:45 PM EST Office Visit [facility] [address] [facility] [address] [place] [address] Gary Yeh MD [address] [place] [address] Arrived [facility] Comment on above: Arrived Start: 12-08-2024 End: 12-08-2024 Patient encounter procedure 12/08/2024 8:45 AM EST Office Visit [facility] [address] [facility] [address] [place] [address] Gary Yeh MD [address] [facility] [address] [place] [address] [facility] Start: 07-12-2024 [facility] Start: 06-13-2024 Influenza vaccination T [facility] Start: 06-07-2024 End: 06-07-2025 Comprehensive metabolic 2000 panel - Serum or Plasma Comprehensive metabolic panel Lab Routine 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) Expected: 06/07/2024 (Approximate), Expires: 06/07/2025 [facility] Comment on above: Expected: 06/07/2024 (Approximate), Expires: 06/07/2025 Start: 06-07-2024 End: 06-07-2025 CT Chest for screening WO contrast CT lung screening low dose Imaging Routine Panlobular emphysema (CMS/HCC) History of tobacco abuse Expected: 06/07/2024, Expires: 06/07/2025 [facility] Comment on above: Expected: 06/07/2024 , Expires: 06/07/2025 Start: 06-07-2024 End: 06-07-2025 Lipid 1996 panel - Serum or Plasma Lipid panel Lab Routine 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) Expected: 06/07/2024 (Approximate), Expires: 06/07/2025 [facility] Comment on above: Expected: 06/07/2024 (Approximate), Expires: 06/07/2025 Start: 01-02-2024 End: 01-01-2025 CT Chest wo and w Contrast CT Chest wo and w Contrast Imaging Routine 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) Expected: 01/02/2024, Expires: 01/01/2025 [facility] Work Phone: Comment on above: Expected: 01/02/2024 , Expires: 01/01/2025 Start: 12-24-2023 Medicare Annual Wellness (AWV) Medicare Annual Wellness (AWV) [facility] Start: 06-13-2023 Influenza vaccination Influenza Vacc ine (#1) [facility] Start: 02-04-2023 Hypertension/CHF/CAD Annual BMP Blood Test Hypertension/CHF/CAD Annual BMP Blood Test [facility] Start: 06-13-2022 [facility] Start: 06-04-2022 End: 06-04-2022 Patient encounter procedure 06/04/2022 Appointment Cardiology [facility] Start: 05-27-2022 End: 05-27-2022 Patient encounter procedure 05/27/2022 Office Visit Cardiology Tom Harrison MD [address] [place] [address] [facility] Start: 09-13-2021 Hypertension/CHF/CAD Annual BMP Blood Test Hypertension/CHF/CAD Annual BMP Blood Test [facility] Start: 06-13-2021 Influenza vaccination Influenza Vacc ine (#1) [facility] Start: 2020 Falls Risk Assessment Falls Risk Ass essment [facility] Start: 2020 Pneumococcal Vaccine : 65+ Years (1 - PCV) Pneumococcal Vaccine: 65+ Years (1 - PCV) [facility] Start: 2020 Pneumococcal Vaccine : 65+ Years (1 of 1 - PCV) Pneumococcal Vaccine: 65+ Years (1 of 1 - PCV) [facility] Start: 2020 Pneumococcal Vaccine : 65+ Years (1 of 1 - PPSV23) Pneumococcal Vaccine: 65+ Years (1 of 1 - PPSV23) [facility] Start: 11-20-2019 Abdominal aortic aneurysm screening Abdominal Aortic Aneurysm (AAA) Screen [facility] Start: 11-20-2019 Adolescent depressio n screening assessment Depression Screening [facility] Start: 11-20-2019 Hepatitis C screening Hepatitis C Sc reening [facility] Start: 11-20-2019 HIV screening HIV Screening [facility] Start: 11-20-2019 Lipid panel Cholesterol Sc reening (Lipid Panel) [facility] Start: 11-20-2019 Medicare Annual Wellness Visit Medicare Annual Wellness Visit [facility] Start: 11-20-2019 Screening for malign ant neoplasm of colon Colorectal Cancer Screening: Colonoscopy [facility] Start: 11-20-2019 Social Influencers o f Health Screening Social Influencers of Health Screening [facility] Start: 2015 Hepatitis B Vaccines (1 of 3 - Risk 3-dose series) Hepatitis B Vaccines (1 of 3 - Risk 3-dose series) [facility] Start: 2015 RSV Immunization Patients 60+ Years Old (1 - 1-dose 60+ series) RSV Immunization Patients 60+ Years Old (1 - 1-dose 60+ series) [facility] Start: 2015 RSV Immunization Patients 60+ Years Old (1 - Risk 60-74 years 1-dose series) RSV Immunization Patients 60+ Years Old (1 - Risk 60-74 years 1-dose series) [facility] Start: 2005 Zoster Vaccines (1 o f 2) Zoster Vaccines (1 of 2) [facility] Start: 1974 DTaP,Tdap,and Td Vaccines (1 - Tdap) DTaP,Tdap,and Td Vaccines (1 - Tdap) [facility] Start: 1974 Hepatitis A Vaccines (1 of 2 - Risk 2-dose series) Hepatitis A Vaccines (1 of 2 - Risk 2-dose series) [facility] Start: 1974 Zoster Vaccines (1 o f 2) Zoster Vaccines (1 of 2) [facility] Start: 1967 COVID-19 Vaccine (1) COVID-19 Vaccin e (1) [facility] Start: 1961 Pneumococcal Vaccine : 65+ Years (1 of 2 - PCV) Pneumococcal Vaccine: 65+ Years (1 of 2 - PCV) [facility] Start: 1960 COVID-19 Vaccine (#1) COVID-19 Vacci ne (#1) [facility] Start: 1956 Hepatitis A Vaccines (1 of 2 - Risk 2-dose series) Hepatitis A Vaccines (1 of 2 - Risk 2-dose series) [facility] Start: 03-27-1956 COVID-19 Vaccine (#1) COVID-19 Vacci ne (#1) [facility] Start: 1955 Screening for malign ant neoplasm of colon [facility] CBC W Auto Different ial panel - Blood CBC and differential Lab Routine 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 [employer] Work Phone: Comment on above: Ordered: 06/07/2024 Patient Education Hemorrhoids (D C) Diverticulosis (DC) Colon Polypectomy (DC) Know your [facility] Work Phone: Prostate specific Ag [Mass/volume] in Serum or Plasma PSA Lab Routine Prostate cancer screening Ordered: 06/07/2024 [facility] [employer] Comment on above: Ordered: 06/07/2024 End: 05-27-2023 Transthoracic echocardiogram (TTE) complete with PRN contrast, bubble, strain, and 3D order panel Transthoracic echocardiogram (TTE) complete with PRN contrast, bubble, strain, and 3D order panel Echocardiography Routine Pre-operative cardiovascular exam, new EKG abnormalities c/w ischemia 1 Occurrences starting 05/27/2022 until 05/27/2023 [facility] Work Phone: Comment on above: 1 Occurrences starti ng 05/27/2022 until 05/27/2023 Payers Date Payer Category Payer Self-pay [id number] 2022 Medicare [id number] 2020 Private Health Insurance [id number] 2020 Unknown [id number] 1.315 2020 Unknown [id number] 2020 Medicare [id number] 1.315 1959 Medicare [id number] 1959 Unknown [id number] 1955 Unknown [id number] 2.16.840.1.660461.3.579.2.593 1955 Unknown [id number] 2.16.840.1.456717.3.579.2.593 1955 Unknown [id number] 2.16.840.1.264821.3.579.2.593 1955 Unknown [id number] 2.16.840.1.932104.3.579.2.1143 1955 Unknown [id number] 2.16.840.1.449721.3.579.2.727 1955 Unknown [id number] 2.16.840.1.616207.3.579.2.727 1955 Unknown [id number] 2.16.840.1.762540.3.579.2.727 1955 Unknown [id number] 2.16.840.1.754240.3.579.2.727 1955 Unknown [id number] 2.16.840.1.110411.3.579.2.727 1955 Unknown [id number] 2.16.840.1.599486.3.579.2.727 1955 Unknown [id number] 2.16.840.1.452104.3.579.2.727 1955 Unknown [id number] 2.16.840.1.469402.3.579.2.727 1955 Unknown [id number] 2.16.840.1.161744.3.579.2.1143 1955 Unknown [id number] 2.16.840.1.872482.3.579.2.114 1955 Unknown [id number] 2.16.840.1.136517.3.579.2.727 1955 Unknown [id number] 2.16.840.1.856033.3.579.2.72 1955 Unknown [id number] 2.16.840.1.639571.3.579.2.72 1955 Unknown [id number] 2.16.840.1.568239.3.579.2.727 1955 Unknown [id number] 2.16.840.1.061052.3.579.2.727 1955 Unknown [id number] 2.16.840.1.506658.3.579.2.1259 1955 Unknown [id number] 2.16.840.1.830659.3.579.2.125 1955 Unknown [id number] 2.16.840.1.046590.3.579.2.1259 1955 Unknown [id number] 2.16.840.1.938685.3.579.2.125 1955 Unknown [id number] 2.16.840.1.862261.3.579.2.1259 Unknown [place] [facility] [id number] Unknown [id number] 2.16.840.1.592002.3.579.2.531 Social History Date Type Detail Facility Tobacco smoking stat us NHIS Unknown if ever smoked [facility] Start: 1955 Sex Assigned At Male [facility] Start: 05-27-2022 Tobacco smoking status NHIS Never smoked tobacco [facility] Start: 05-27-2022 End: 07-02-2023 Tobacco use and exposure Smokeless tobacco non-user [facility] Start: 05-27-2022 End: 12-13-2024 Alcohol intake Ex-drinker (finding) [facility] Start: 05-17-2022 End: 06-04-2022 Exposure to SARS-CoV-2 (event) Not sure [facility] Start: 07-02-2023 End: 10-27-2023 Tobacco smoking status Ex-smoker (finding) [facility] Start: 06-07-2024 End: 12-07-2024 Sex Assigned At Male [facility] Start: 09-13-2021 Gender identity Identifies as male gender (finding) [facility] Start: 09-13-2021 Sexual orientation Heterosexual (finding) [facility] Start: 10-13-1975 End: 10-13-2006 History of tobacco use Current smoker [facility] Start: 10-13-1975 End: 10-13-2006 History of tobacco use Cigarette Smoker [facility] Start: 06-07-2024 End: 12-07-2024 History of Social function [facility] Start: 1955 Sex assigned at Not on file [facility] How often do you nee d to have someone help you when you read instructions, pamphlets, or other written material from your doctor or pharmacy [SILS] Never [facility] Do you belong to any clubs or organizations such as taoist groups, unions, fraternal or athletic groups, or school groups? No [facility] Are you now , , , , never or living with a partner? [facility] How often to you hav e a drink containing alcohol? Never [facility] How hard is it for y ou to pay for the very basics like food, housing, medical care, and heating Not very hard [facility] Do you feel stress - tense, restless, nervous, or anxious, or unable to sleep at night because your mind is troubled all the time - these days [OSQ] Only a little [facility] (I/We) worried wheth er (my/our) food would run out before (I/we) got money to buy more. Never true [facility] Goals Date Patient Goal Desired Activity /State Functional Status Date Assessment Result Facility 04-28-2024 Functional Status N/A [facility] 04-07-2024 Functional Status N/A [facility] 01-21-2024 Functional Status N/A [facility] 10-27-2023 Functional Status N/A [facility] Clinical Notes 05-27-2022 to 01-18-2025 Luis Summers, - 01/18/2025 3:15 PM Mark Webster RN - 10/25/2024 1:54 PM Triny Josue NP - 10/25/2024 11:45 AM Fish Wyatt RN - 10/05/2024 9:04 AM EST Note Date & Type Note Facility 01-18-2025 History of Presen t illness Narrative Images from the original note were not included. Daniel Clemente 1955 Daniel Clemente is a 69 y.o. male presents with chief complaint of Follow-up (GB) HPI: HPI Patient said that after years of having difficulty he wants to have his gallbladder out. I had met him in 2022 and we were planning on his cholecystectomy however he had put that off. He said that he definitely procrastinates on things. After he had his colonoscopy he felt like that was very easy and maybe he should proceed with his TURP and his cholecystectomy. His machinist brake had suggested doing the cholecystectomy 1st. Be said that he is getting more frequent issues with nausea and vomiting. He really is not having abdominal pain. He has not having any stabbing pain in the right upper quadrant. He is issue is more with nausea after eating and sometimes vomiting. He does sometimes get some upper abdominal discomfort. He has not having any darkening of his urine. He has not having any jaundice. He has not had any imaging in 2 years. Per my previous notes he did have more pain symptoms Although nausea was the dominant complaint. SUBJECTIVE: MEDICATIONS: ALLERGIES Current Outpatient Medications Medication Instructions alfuzosin ER (UROXATRAL) 10 mg, Daily amLODIPine (NORVASC) 5 mg, Oral, Daily aspirin 81 mg, Daily RT atorvastatin (LIPITOR) 40 mg, Oral, Nightly carvedilol (COREG) 6.25 mg, 2 times daily dutasteride (AVODART) 0.5 mg, Daily Allergies Allergen Reactions Penicillin G Unknown PAST MEDICAL HISTORY: SOCIAL HISTORY SURGICAL HISTORY: Past Medical History: Diagnosis Date BPH (benign prostatic hyperplasia) Hypertension ([facility]/HCC) Social History Tobacco Use Smoking status: Former Current packs/day: 0.00 Types: Cigarettes Start date: 1975 Quit date: 2006 Years since quittin.2 Smokeless tobacco: Never Substance Use Topics Alcohol use: Not Currently Past Surgical History: Procedure Laterality Date COLONOSCOPY W/ POLYPECTOMY 07/12/2024 CORONARY ANGIOPLASTY WITH STENT PLACEMENT 2013 CT ANGIOGRAM CHEST 01/26/2024 CT ANGIOGRAM CHEST 01/26/2024 PROSTATE BIOPSY 04/07/2024 Benign REVIEW OF SYMPTOMS: Review of Systems Constitutional: Negative for appetite change and fatigue. HENT: Negative for trouble swallowing. Respiratory: Negative for cough and shortness of breath. Cardiovascular: Negative for chest pain. Gastrointestinal: Positive for nausea and vomiting. Negative for abdominal pain. Genitourinary: Negative for hematuria. Musculoskeletal: Negative for arthralgias. Neurological: Negative for seizures. Hematological: Negative for adenopathy. OBJECTIVE: Visit Vitals BP 135/90 Ht 6' Wt 209 lb BMI 28.35 kg/m Smoking Status Former BSA 2.19 m Physical Exam Constitutional: Appearance: Normal appearance. He is not ill-appearing. HENT: Head: Atraumatic. Eyes: General: No scleral icterus. Cardiovascular: Rate and Rhythm: Regular rhythm. Heart sounds: Normal heart sounds. Pulmonary: Breath sounds: No wheezing. Abdominal: General: There is no distension. Tenderness: There is no abdominal tenderness. Musculoskeletal: Right lower leg: No edema. Left lower leg: No edema. Neurological: Mental Status: He is alert. ASSESSMENT AND PLAN: Assessment/Plan Diagnoses and all orders for this visit: Bilious vomiting with nausea Calculus of gallbladder with acute on chronic cholecystitis without obstruction - Ambulatory referral to General Surgery Nausea vomiting predominant symptoms, He has had previous imaging that showed gallstones. Patient is reporting less pain than I had understood 2 years ago and I would met him. We discussed all findings. LFTs are normal. There is no current imaging. Plan is for a gallbladder ultrasound and an EGD. I discussed with him the procedure and the risks and potential complications, need to rule out gastric etiology, ulcers, H pylori, neoplasm etcetera before proceed with cholecystectomy for less typical symptoms. He understands and would like to proceed. documented in this encounter [facility] 10-25-2024 History of Presen t illness Narrative Cardiac clearance and EKG faxed to Dr. Bandar Rogers MD of [facility] @ [phone] documented in this encounter [facility] 10-25-2024 History of Presen t illness Narrative Images from the original note were not included. [facility] Walk [facility] Patient: Daniel Clemente : 1955 Age: .69 y.o. Gender: male PCP: Gary Yeh MD Assessment In summary, Daniel Clemente is a 69 y.o. White male with h/o CAD s/p PCI to posterolateral branch of the RCA (2013), HTN, HLD, ascending aorta of dilation (4 cm per chest CTA 01/26/2024) and ED who presents to the walk-in clinic today in preparation for upcoming surgery. Last stress test negative for ischemia in 2021. Current 12-lead reveals SR with no signs of new ischemia. No complaints. 1. Pre-op exam 2. Chronic ischemic heart disease 3. Ascending aorta dilatation (CMS/HCC) Plan RTC in December [address] Harrison. Pre-op Cardiovascular Exam and Risk Stratification: Type of surgery: cystoscopy/TURP scheduled on 10/28/[address] Rogers. No concerning cardiovascular symptoms. he denies CP/pressure/tightness, dyspnea, orthopnea, palpitations, dizziness, leg swelling or syncope. Normotensive. 12-lead shows no new signs of ischemia. No evidence of current ACS, decompensated HF, arrhythmia or severe valvular disease. Revised Cardiac Risk Index (RCRI) Risk: 0.9% risk of major cardiac event. Avilez Activity Status Index (DASI): Exceeds 4 METs or greater functional capacity. Therefore, by ACC/AHA guidelines, he does not require additional preoperative cardiac assessment/optimization prior to surgical intervention. Ideally, he would remain on ASA, BB and other current cardiac medications. He is at elevated risk for surgery. This risk was discussed with Daniel Clemente and he verbalizes understanding of these risks. Continue heart healthy lifestyle including low salt diet, increasing physical activity, weight loss. Recommend at least 150 minutes of moderate vigorous activity weekly. It is my pleasure having the opportunity to help take care of Mr. Daniel Clemente. If you have any questions, please feel free to contact me. Arnold Josue NP 10/25/24 11:55 AM EST [facility] Dis[facility] Chief [address] [place] [address], [address] [place] [address] Office [phone] Chief Complaint Patient presents with Pre-op Exam Pt needs clearance for prostate surgery on 10/28/24. Primary Medical Records Coordinator: Dr. Harrison HPI: Daniel Clemente is a 69 y.o. White male with h/o CAD s/p PCI to posterolateral branch of the RCA (2013), HTN, HLD, ascending aorta of dilation (4 cm per chest CTA 01/26/2024) and ED who presents to the walk-in clinic today in preparation for upcoming surgery. Last stress test negative for ischemia in 2021. Current 12-lead reveals SR with no signs of new ischemia. No complaints. 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 He denies CP/pressure/tightness, dyspnea, palpitations, dizziness, edema or fatigue. Normotensive. Exam unremarkable. Prior cardiac studies: TRANSTHORACIC ECHOCARDIOGRAM (TTE) COMPLETE (CONTRAST/BUBBLE/3D PRN) 06/04/2022 06/04/2022 Left ventricular size and systolic function are normal; LVEF 55-60%. Normal global longitudinal strain at -21.2%. No regional wall motion abnormalities. Right ventricular size is upper normal with normal systolic function. Mild mitral regurgitation. Ascending aorta is mildly dilated at 4.2 cm. No pericardial effusion. NM STRESS TEST WITH MYOCARDIAL PERFUSION 06/04/2022, 06/04/2022 06/04/2022 Images from the original result were not included. The patient was stressed according to the [...] systolic function by quantitative ejection fraction analysis. [facility] 2013 Cardiac catheterization 2013 revealed severe disease in [...] left circumflex arteries. Normal LV systolic function. Past Medical History: Diagnosis Date Angina pectoris (CMS/HCC) Coronary artery disease H/O non-ST elevation myocardial infarction (NSTEMI) Hyperlipidemia Hypertension Past Surgical History: Procedure Laterality Date BACK SURGERY CARDIAC CATHETERIZATION Family History Problem Relation Name Age of Onset Heart disease Mother Heart disease Father Diabetes Father Social History Socioeconomic History Marital status: Spouse name: Not on file Number of children: Not on file Years of education: Not on file Highest education level: Not on file Occupational History Not on file Tobacco Use Smoking status: Never Smokeless tobacco: Never Vaping Use Vaping status: Never Used Substance and Sexual Activity Alcohol use: Not Currently Drug use: Yes Types: Marijuana/Cannabis Sexual activity: Not Currently Partners: Female Other Topics Concern Not on file Social History Narrative Not on file I have personally reviewed the patient's past medical, surgical and family history and made changes as appropriate. Allergies Allergen Reactions Penicillin G Potassium Unknown Current Outpatient Medications Medication Sig Dispense Refill alfuzosin (UROXATRAL) 10 mg 24 hr tablet Take 1 tablet (10 mg total) by mouth 1 (one) time each day. amLODIPine (NORVASC) 5 mg tablet take 1 tablet by mouth once daily 90 tablet 3 aspirin 81 mg EC tablet Take 1 tablet (81 mg total) by mouth 1 (one) time each day. atorvastatin (LIPITOR) 40 mg tablet take 1 tablet by mouth at bedtime 90 tablet 3 carvediloL (COREG) 6.25 mg tablet Take 1 tablet (6.25 mg total) by mouth 2 (two) times a day. 180 tablet 3 dutasteride (AVODART) 0.5 mg capsule Take 1 capsule (0.5 mg total) by mouth 1 (one) time each day. diclofenac (VOLTAREN) 75 mg EC tablet 1 tablet (75 mg total). (Patient not taking: Reported on 10/25/2024) No current facility-administered medications for this visit. Review of Systems: Daniel Clemente denies chest pain, pressure, tightness or dyspnea. Denies palpitations or dizziness. Denies edema, nausea or fevers. Physical Exam Visit Vitals BP 132/75 (BP Location: Left arm, Patient Position: Sitting) Pulse 67 Temp 36.2 C (97.2 F) (Temporal) Resp 16 Ht 1.829 m (72 ) Wt 94.8 kg (209 lb) SpO2 95% BMI 28.35 kg/m Smoking Status Never BSA 2.17 m Wt Readings from Last 3 Encounters: 10/25/24 94.8 kg (209 lb) 01/02/24 90.6 kg (199 lb 12.8 oz) 06/04/22 88 kg (194 lb 0.1 oz) CONSTITUTIONAL: No acute distress, alert, cooperative, in no distress. NEURO: Alert and oriented to person/place/time. HEART: nL rate, regular rhythm, S1, S2, no murmurs, rubs or gallops. LUNGS: lungs clear to auscultation bilaterally, no wheezes, rales, or rhonchi ABDOMEN: soft and non-tender. EXTREMITIES. No cyanosis, 2+ DP/PT bilaterally. No b/l LE edema documented in this encounter [facility] 10-05-2024 History of Presen t illness Narrative Received fax patient scheduled for cystoscopy/TURP with Dr. Louis at [facility] on 10/28/24. Last OV in 12/2023. I called spoke with patient advised would need to come to [facility] for clearance, dates/times given. I also fax back to [facility] to update on this information. Cardiac clearance request scanned in under media. documented in this encounter [facility] 08-24-2024 History of Presen t illness Narrative Images from the original note were not included. Subjective Patient ID: Daniel Clemente is a 68 y.o. male who presents for Sinusitis. Sinus Pain Patient complains of cough, nasal congestion, post nasal drip, and sore throat. Onset of symptoms was 2 weeks ago. Symptoms have been gradually worsening since that time. His grand kids have been sick lately. Sinusitis Associated symptoms include congestion, coughing and a sore throat. Pertinent negatives include no chills, ear pain, headaches, shortness of breath or sinus pressure. Current Outpatient Medications on File Prior to Visit Medication Sig Dispense Refill alfuzosin ER (Uroxatral) 10 MG 24 hr tablet Take 10 mg by mouth Daily amLODIPine (Norvasc) 5 MG tablet Take 1 tablet (5 mg) by mouth Daily 100 tablet 3 aspirin 81 MG EC tablet Take 81 mg by mouth in the morning. atorvastatin (Lipitor) 40 MG tablet Take 1 tablet (40 mg) by mouth at bedtime 90 tablet 3 carvedilol (Coreg) 6.25 MG tablet Take 6.25 mg by mouth in the morning and 6.25 mg in the evening. dutasteride (Avodart) 0.5 MG capsule Take 0.5 mg by mouth Daily No current facility-administered medications on file prior to visit. I have reviewed and reconciled the history and medication list with the patient today. Allergies Allergen Reactions Penicillin G Unknown Social History Tobacco Use Smoking status: Former Current packs/day: 0.00 Types: Cigarettes Start date: 1975 Quit date: 2006 Years since quittin.8 Smokeless tobacco: Never Substance Use Topics Alcohol use: Not Currently Family History Problem Relation Name Age of Onset Diabetes Mother Heart disease Mother Heart disease Father Past Medical History: Diagnosis Date BPH (benign prostatic hyperplasia) Hypertension (CMS/HCC) Past Surgical History: Procedure Laterality Date COLONOSCOPY W/ POLYPECTOMY 07/12/2024 CORONARY ANGIOPLASTY WITH STENT PLACEMENT 2013 CT ANGIOGRAM CHEST 01/26/2024 CT ANGIOGRAM CHEST 01/26/2024 PROSTATE BIOPSY 04/07/2024 Benign Visit Vitals BP 130/72 Pulse 68 Temp 97.7 F Ht 6' SpO2 96% BMI 27.10 kg/m Smoking Status Former BSA 2.15 m Review of Systems Constitutional: Negative for chills, fatigue and fever. HENT: Positive for congestion, postnasal drip, rhinorrhea and sore throat. Negative for ear pain and sinus pressure. Respiratory: Positive for cough. Negative for shortness of breath and wheezing. Cardiovascular: Negative for chest pain, palpitations and leg swelling. Gastrointestinal: Negative for abdominal pain, constipation, diarrhea, nausea and vomiting. Skin: Negative for rash. Neurological: Negative for headaches. Objective Physical Exam Constitutional: General: He is not in acute distress. Appearance: Normal appearance. HENT: Head: Normocephalic and atraumatic. Right Ear: Tympanic membrane and ear canal normal. Left Ear: Tympanic membrane and ear canal normal. Nose: Congestion present. Right Turbinates: Swollen. Left Turbinates: Swollen. Mouth/Throat: Mouth: Mucous membranes are moist. Pharynx: Posterior oropharyngeal erythema present. Eyes: General: No scleral icterus. Cardiovascular: Rate and Rhythm: Normal rate and regular rhythm. Heart sounds: No murmur heard. Pulmonary: Effort: Pulmonary effort is normal. No respiratory distress. Breath sounds: Wheezing and rhonchi present. No rales. Musculoskeletal: General: No swelling. Lymphadenopathy: Cervical: No cervical adenopathy. Skin: General: Skin is warm and dry. Neurological: General: No focal deficit present. Mental Status: He is alert and oriented to person, place, and time. Psychiatric: Mood and Affect: Mood normal. Behavior: Behavior normal. Assessment/Plan Diagnoses and all orders for this visit: Acute bronchitis, unspecified organism - azithromycin (Zithromax) 250 MG tablet; Take 2 tablets (500 mg) by mouth Daily for 1 day, THEN 1 tablet (250 mg) Daily for 4 days. Start the above as directed. Reviewed potential s/e with patient. Increase water intake, get plenty of rest. Follow up if no improvement in one week. Acute non-recurrent sinusitis, unspecified location - azithromycin (Zithromax) 250 MG tablet; Take 2 tablets (500 mg) by mouth Daily for 1 day, THEN 1 tablet (250 mg) Daily for 4 days. See above. Impaired fasting glucose Glucose 110 on recent labs. Encouraged pt to decrease his simple sugars in his diet. Stay hydrated. Follow up for Appointment As Scheduled. documented in this encounter [facility] 07-15-2024 Telephone encounter Note No he does not need an appt. [facility] Work Phone: 07-15-2024 Miscellaneous Notes No he does not need an appt. Patient came in stating he completed his colonoscopy on Friday. He did say they found a few different things but they said it wasn't anything of concern. He wondered if he needed to follow up with DB on this. documented in this encounter [facility] 07-15-2024 Telephone encounter Note Patient came in stating he completed his colonoscopy on Friday. He did say they found a few different things but they said it wasn't anything of concern. He wondered if he needed to follow up with DB on this. [facility] 07-12-2024 History and physical note Note Date/Time July 12, 2024 10:12am [facility] [address] [place] [address] Gastroenterology H&P Signed Patient: Daniel Clemente MR#: [id number] : 1955 Acct:[id number] Age/Sex: 68 / M Adm Date: 4 Loc: Room: Type: [facility] Attending Dr: Alistair Yañez MD Copies to: MD Alistair Power II, MD~ Date of Service: 07/12/2024 HISTORY & PHYSICAL: Patient's history with special attention to the cardiovascular, pulmonary systems and the current problem was reviewed with the patient immediately prior to the procedure. Present medications and doses reviewed in the EMR. Allergies and pertinent laboratory tests were also reviewedat this time in the EMR. The physical examination, as below, was then performed. Indication, assessment and HPI: 68-year-old man for colonoscopy for evaluation of positive Cologuard etiology Family history of GI malignancy? No PHYSICAL EXAMINATION General appearance: NAD Skin: No jaundice Head: NC/AT Eyes: Anicteric Neck: Supple Lungs: Normal respiratory effort, no use of accessory muscles Abdomen: nondistended Neuro: Ox3. REVIEW OF SYSTEMS Constitutional: Denies malaise, fevers Cardiovascular: Denies chest pain, palpitations Respiratory: Denies shortness of breath, wheezing Gastrointestinal: As per HPI Genitourinary: Denies dysuria, polyuria Musculoskeletal: Denies joint swelling, joint stiffness Neurological: Denies confusion, numbness, tingling Endocrine: Denies fatigue Written informed consent obtained from the patient. Risks (including but not limited to perforation, infection, bloating, bleeding, need for emergent surgeryand loss of life), benefits and alternatives explained and questions answered. The patient verbalized understanding. Based on history patient is an appropriate candidate for the procedure. Alistair Yañez M.D. Documented By: Alistair Yañez MD 07/12/24 1011 Signed By: <Electronically signed by Alistair Yañez MD> 07/12/24 1043 [facility] Work Phone: 1(123) 887-262809-30-2024 [facility] History of Present illness Narrative* Gary Yeh MD - 06/07/2024 9:00 AM EDT Images from the original note were not included. Subjective : Chief Complaint: Daniel Clemente is an 68 y.o. male here for an annual wellness visit. I have reviewed and reconciled the history and medication list with the patient today. Current Outpatient Medications Medication Sig Dispense Refill alfuzosin ER (Uroxatral) 10 MG 24 hr tablet Take 10 mg by mouth Daily amLODIPine (Norvasc) 5 MG tablet Take 1 tablet (5 mg) by mouth in the morning. 100 tablet 3 aspirin 81 MG EC tablet Take 81 mg by mouth in the morning. atorvastatin (Lipitor) 40 MG tablet Take 1 tablet by mouth at bedtime carvedilol (Coreg) 6.25 MG tablet Take 6.25 mg by mouth in the morning and 6.25 mg in the evening. dutasteride (Avodart) 0.5 MG capsule Take 0.5 mg by mouth Daily levoFLOXacin (Levaquin) 750 MG tablet take 1 tablet by mouth once daily for 7 days No current facility-administered medications for this visit. Review of Systems Constitutional: Negative for appetite change, fatigue and unexpected weight change. Respiratory: Negative for cough, chest tightness and shortness of breath. Cardiovascular: Negative for chest pain, palpitations and leg swelling. Gastrointestinal: Negative for abdominal pain, nausea and vomiting. Genitourinary: Negative for difficulty urinating, hematuria and urgency. List of current healthcare providers: Patient Care Team: Gary Yeh MD as PCP - General (Internal Medicine) Gary Yeh MD as PCP - [facility]CO [employer] Medicare Annual Visit Over the past 2 weeks, how often have you been bothered by any of the following problems? Little interest or pleasure in doing things: Not at all Feeling down, depressed, or hopeless: Not at all Patient Health Questionnaire-2 Score: 0 Over the past 2 weeks, how often have you been bothered by any of the following problems? Trouble falling or staying asleep, or sleeping too much: Not at all Feeling tired or having little energy: Several days Poor appetite or overeating: Not at all Feeling bad about yourself - or that you are a failure or have let yourself or your family down: Not at all Trouble concentrating on things, such as reading the newspaper or watching television: Not at all Moving or speaking so slowly that other people could have noticed? Or the opposite - being so fidgety or restless that you have been moving around a lot more than usual.: Not at all Thoughts that you would be better off or hurting yourself in some way: Not at all Patient Health Questionnaire-9 Score: 1 Tyler Fall Risk History of Falling, Immediate or Within 3 Months: No Health Risk Assessment Form Do you need help eating, bathing, using the toilet, dressing, or getting around your home?: No Can you prepare your own meals?: Yes Can you do your own housework without help?: Yes Can you shop for groceries or clothes without help?: Yes Do you exercise for about 20 minutes 3 or more days a week?: Yes How confident are you that you can control and manage most of your health problems?: Somewhat confident Can you mange your money, credit cards and accounts, pay bills and taxes?: Yes Cognitive Screening Three Word Registration: Landy Raza, Finger Clock Drawing: Normal Clock - 2 Three Word Recall: 1/3 words correct - 1 Total Score (0-5 Points): 3 Pain Assessment Pain Score: 4 Advance Care Planning Do you have a living will?: No Do you have a medical power of trademark attorney?: No Objective : BP 140/85 Pulse 70 Resp 16 Wt 199 lb 12.8 oz SpO2 97% BMI 27.10 kg/m No results found. Physical Exam Constitutional: General: He is not in acute distress. Appearance: He is normal weight. He is not ill-appearing. HENT: Head: Normocephalic. Cardiovascular: Rate and Rhythm: Normal rate and regular rhythm. Heart sounds: Normal heart sounds. No murmur heard. Pulmonary: Effort: Pulmonary effort is normal. Breath sounds: Normal breath sounds. Musculoskeletal: General: No swelling. Right lower leg: No edema. Left lower leg: No edema. Neurological: Mental Status: He is alert. Psychiatric: Mood and Affect: Mood normal. Thought Content: Thought content normal. Judgment: Judgment normal. Assessment/Plan : The following health maintenance schedule was reviewed with the patient and provided in printed form in the after visit summary: Health Maintenance Topic Date Due Pneumococcal Vaccine: 65+ Years (1 of 2 - PCV) Never done Medicare Annual Wellness (AWV) 12/24/2023 Influenza Vaccine (1) 06/13/2024 Colorectal Cancer Screening 06/01/2027 Advance Care Planning Patient willing to discuss ACP. Pt has Living Will and DPOA in place. Assessment/Plan Diagnoses and all orders for this visit: Routine general medical examination at health care facility Medicare annual wellness visit, subsequent Personal history of nicotine dependence 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) - CBC and differential - Comprehensive metabolic panel; Future - Lipid panel; Future Panlobular emphysema (CMS/HCC) - CT lung screening low dose; Future Atherosclerosis of aorta (CMS/HCC) Mixed hyperlipidemia (CMS/HCC) History of tobacco abuse - CT lung screening low dose; Future Prostate cancer screening - PSA Positive colorectal cancer screening using Cologuard test - Ambulatory referral to Gastroenterology; Future Orders Placed This Encounter Procedures CT lung screening low dose Standing Status: Future Standing Expiration Date: 06/07/2025 Order Specific Question: Reason for exam: Answer: routine screening Order Specific Question: Is the patient claustrophobic? Answer: Not Claustrophic Order Specific Question: Does the patient show any signs or symptoms of lung cancer? Answer: No Order Specific Question: Is this the first (baseline) CT or an annual exam? Answer: Baseline [1] Order Specific Question: Is there documentation of shared decision making? Answer: Yes Order Specific Question: Has the patient been occupationally exposed to agents that are carcinogenstargeting the lungs? Answer: Unknown [3] Order Specific Question: Does the patient have a history of smoking-related cancer other than lymphoma, leukemia, cancer of the lung, head and neck, bladder, colon, esophagus, GI, kidney, or pancreas? Answer: Unknown [3] Order Specific Question: Has the patient been exposed to a high level of radon? Answer: Unknown [3] Electronically signed by Gary Yeh MD on June 07, 2024 [id number] Hospital Discharge instructions Patient Education 04/28/2024 10:43:15 [...] including vitamins, herbs, eye drops, creams, and gkwz-snq-lpxndwf medicines. Any problems you or family members [...] provider tells you to take them. Taking zcuw-gya-utylied medicines, vitamins, herbs, and supplements. Tests You [...] Follow these instructions at home: Medicines Take nlid-iob-ghhnoxl and prescription medicines only as told by your health care provider. If you were prescribed an antibiotic medicine, take it as told by your health care provider. Do notstop taking the antibiotic even if you start [...] blood in your urine increases, call your healthcare provider. Follow instructions from your health care provider about eating or drinking restrictions. If a tissue sample was removed for testing (biopsy) during your procedure, it is up to you to get your test results. Ask your health care provider, or the department that is doing the test, when yourresults will be ready. Drink enough fluid to [...] blood in your urine increases, call your healthcare provider. If you were prescribed an antibiotic medicine, take it as told by your health care provider. Do notstop taking the antibiotic even if you start to feel better. This information is not intended to replace advice given to you by your health care provider. Make sure you discuss any questions you have with your health care provider. Document Revised: 06/12/2022 Document Reviewed: 05/11/2021 UShealthrecord Patient Education 2022 [employer]Deck. Follow Up Care 04/19/2024 09:22:59 With:REGINA SANTANA, Bandar Dash, URL Address: [facility] [address] , [place] [address]- When: Unknown [facility] 07-17-2024 NotePatient Education Urology Cystoscopy Cystoscopy is a procedure [...] including vitamins, herbs, eye drops, creams, and bhvv-rnv-picfdxy medicines. ? Any problems you or family [...] tells you to take them. ? Taking cbel-yhx-zittfoe medicines, vitamins, herbs, and supplements. Tests You [...] taken to help prevent infection. These steps mayinclude: ? Washing skin with a germ-killing soap. [...] these instructions at home: Medicines ? Take qtnq-azg-cxqmbol and prescription medicines only as told by [...] procedure, it is up to you to getyour test results. Ask your health care provider, (more content not included)...[facility]07-02-[facility] History of Present illness Narrative* Dominga Wyatt RN - 04/13/2024 1:28 PM EDT Patient called and is inquiring about recent antibiotic he was prescribed (levofloxacin 750mg x 10 days) and patient is concerned as he is reading that he should consult with provider prior to takingif have hx of aortic aneurysm, which patient does have hx of dilation ascending aorta which we are monitoring most recent CT in 01/2024 showed 4cm. FRS OOO, any insight? Thanks documented in this encounterCommunity Health [id number] Hospital Discharge instructions Patient Education 04/07/2024 07:44:02 [...] discomfort near your rectum, especially while sitting. Turah-colored urine due to small amounts of blood in your urine. A burning feeling while urinating. Blood in your stool (feces) or bleeding from your rectum. Blood in your semen. Follow these instructions at home: Medicines Take speg-xsl-dpitrut and prescription medicines only as told by your health care provider. If you were given a sedative during your procedure, it can affect you for several hours. Do not drive or operate machinery until your health care provider says that it is safe. If you were prescribed an antibiotic medicine, take it as told by your health care provider. Do notstop using the antibiotic even if you start [...] pain and discomfort around your rectum, especially whilesitting. You may have blood in your urine [...] provider. Document Revised: 03/25/2022 Document Reviewed: 03/25/2022 Elsevier Patient Education 2022 TVDeck. Follow Up Care 03/16/2024 12:02:50 With:REGINA SANTANA, Bandar Dash, LYUDMILAL Address: [facility] [address] , [place] [address]- When: Unknown [facility] 05-14-2024 Evaluation + Plan note Future Scheduled Tests Radiology* US Prostate, [facility] 02/24/24 [facility]04-10-2024 Hospital Discharge instructions Patient Education 01/21/2024 17:26:37 [...] discomfort near your rectum, especially while sitting. Turah-colored urine due to small amounts of blood in your urine. A burning feeling while urinating. Blood in your stool (feces) or bleeding from your rectum. Blood in your semen. Follow these instructions at home: Medicines Take dxko-min-qvpxumy and prescription medicines only as told by your health care provider. If you were given a sedative during your procedure, it can affect you for several hours. Do not drive or operate machinery until your health care provider says that it is safe. If you were prescribed an antibiotic medicine, take it as told by your health care provider. Do notstop using the antibiotic even if you start [...] pain and discomfort around your rectum, especially whilesitting. You may have blood in your urine [...] provider. Document Revised: 03/25/2022 Document Reviewed: 03/25/2022 UShealthrecord Patient Education 2022 TVDeck. 01/21/2024 17:26:35 Transrectal Ultrasound-Guided Prostate Biopsy Transrectal Ultrasound-Guided Prostate Biopsy A transrectal ultrasound-guided prostate biopsy is a procedure to remove samples of prostate tissuefor testing. The prostate is a walnut-sized gland that is located below the bladder and in front ofthe rectum. During this procedure, a small device (probe) is lubricated and put inside the rectum. The probe sends out sound waves that make a picture of the prostate and surrounding tissues (transrectal ultrasound). The images are used to help guide the process of removing the samples. The samplesare taken to a lab to be checked [...] including vitamins, herbs, eye drops, creams, and qjal-bzx-vzvmkjb medicines. Any problems you or family members [...] provider tells you to take them. Taking benk-pap-haoxuhl medicines, vitamins, herbs, and supplements. General instructions [...] blood oxygen level will be monitored until youleave the hospital or clinic. You may have [...] hospital or clinic, and follow up with yourhealth care provider for your results. This information is not intended to replace advice given to you by your health care provider. Make sure you discuss any questions you have with your health care provider. Document Revised: 03/25/2022 Document Reviewed: 03/25/2022 UShealthrecord Patient Education 2022 TVDeck. Follow Up Care 10/27/2023 10:13:19 With:REGINA SANTANA, Bandar Dash, URL Address: [facility] [address] , [place] [address]- [phone] When: Unknown Comments:sched TRUS/bx [facility] 03-22-2024 NoteSinus Rhythm Low voltage in precordial leads. -Poor R-wave progression -may be secondary to pulmonary disease consider old anterior infarct. -T-abnormality -Possible inferior apical ischemia. ABNORMAL Neisha [id number] History of Present illness Narrative* Tom Harrison MD - 01/02/2024 2:30 PM EDT Images from the original note were not [...] Tom Harrison MD 01/02/24 2:17 PM EDT [place] Access Database Developer [facility] [place] Thank you for this consultation. If you have any questions, please feel free to call. First Call Mon-Fri 2819-3749: [facility] [phone] [facility] [phone] [facility] [phone] After hours/Weekends: [phone] For listed Attendings On-Call at each site [...] posterolateral branch of the right coronary artery. Atthat time patient had normal left main and [...] medical, surgical and family history and made changesas appropriate. Cardiac studies: Cardiac stress test performed [...] rate. The resting blood pressure of 157/93 mmHg, estrada to a maximum blood pressure of [...] was stented with the help of a drug- eluting stent. A 2.5 x 23 mm Xience [...] rhythm, nonspecific ST-T abnormalities. documented in this encounterCommunity Health [id number] NoteSinus Rhythm Low voltage in precordial leads. -Poor R-wave progression -may be secondary to pulmonary disease consider old anterior infarct. -T-abnormality -Possible inferior apical ischemia. [facility] Discharge instructions Patient Education 10/27/2023 10:08:19 Prostatitis Prostatitis Prostatitis is swelling or inflammation of the prostate gland, also called the prostate. This glandis about 1.5 inches wide and 1 inch [...] quickly and results from an acute bacterial infectionin the prostate gland. It is usually associated [...] when the body's disease-fighting system attacks healthy tissuein the body by mistake. Psychological factors. These [...] Follow these instructions at home: Medicines Take nhbc-cld-tolfsiu and prescription medicines only as told by your health care provider. If you were prescribed an antibiotic medicine, take it as told by your health care provider. Do notstop using the antibiotic even if you start to feel better. Managing pain and swelling Take sitz baths as directed by your health care provider. For a sitz bath, sit in warm water that is deep enough to cover your hips and buttocks. If directed, apply heat to the affected area as often as told by your health care provider. Use theheat source that your health care provider recommends, [...] important. Where to find more information National [place] of Diabetes and Digestive and Kidney Diseases: [...] depends on the type of prostatitis. Take lktn-kda-wheogad and prescription medicines only as told by your health care provider. Get help right away of you have chills, feel light-headed, feel like you may faint, cannot urinate,or have blood or blood clots in your urine. This information is not intended to replace advice given to you by your health care provider. Make sure you discuss any questions you have with your health care provider. Document Revised: 11/03/2020 Document Reviewed: 11/03/2020 UShealthrecord Patient Education 2022 TVDeck. Follow Up Care 07/18/2023 13:48:10 With:REGINA SANTANA, Bandar Dash, URL Address: [facility] [address] [place] [address] [phone] When: Unknown Comments:3 mos(PSA after completing 3wk abx course) [facility] [place] 01-15-2024 NoteChief Complaint referral for microhematuria and chronic suprapubic [...] advised about the different possible causes of bacterialand non-bacterial prostatitis. He needs to complete the course of prescribed antibiotics. He understands that the symptoms improve if he decreases his exercise and activity level. Anti-inflammatory medicines can also be helpful, as well as frequent ejaculations. Hot baths are also helpful in easingthe discomfort. -Take doxycycline 100mg bid x3wks. 3. [...] malignant neoplasm of prostate) Father passed from [place]. 6. Former smoker (Z87.891: Personal history of nicotine dependence) Smoked cigarettes 1975 - 2006. Risk factor for urothelial ca. 7. Aspi (more content not included)...[facility]:Result Comment: Electronically Signed By: Bandar ROGERS MD\.br\Date and Time Signed: 10/27/23 10:13 EST\.br\Electronically Co-Signed By: Gretel Yeh.br\Date and Time Co-Signed: 10/27/23 10:09 [id number] History of Present illness Narrative* Tom Harrison MD - 05/27/2022 11:20 AM EDT Images from the original note were not [...] Tom Harrison MD 05/27/22 12:34 PM EDT [place] Access Database Developer [facility] [place] Thank you for this consultation. If you have any questions, please feel free to call. First Call Mon-Fri [phone]: [facility] [phone] [facility] [phone] [facility] [phone] After hours/Weekends: [phone] For listed Attendings On-Call at each site [...] posterolateral branch of the right coronary artery. Atthat time patient had normal left main and [...] medical, surgical and family history and made changesas appropriate. Cardiac studies: Cardiac catheterization 2013 revealed severe disease in the posterolateral branch of the right coronary artery which was stented with the help of a drug- eluting stent. A 2.5 x 23 mm Xience [...] PTT, HGBA1C, CHOL, TRIG, HDL, LDLCALC, CKTOTAL, TROPONINI,HSTROPI, BNP \LAST BMP: No results found for: [...] T waves which are diffuse. This is achange from before. . [facility] Future Appointments Appointment Date:02/02/2024 08:45:00 AM Scheduled Provider:Bandar ROGERS MD Location:[facility] Appointment Type:URO Office Visit Diagnostic Tests Pending * PSA Total 10/27/23 [facility] evaluation + Plan note Future Appointments Appointment Date:03/15/2024 03:00:00 PM Scheduled Provider:Bandar ROGERS MD Location:[facility] Appointment Type:URO Office Visit [facility] evaluation + Plan note Future Appointments Appointment Date:04/23/2024 09:15:00 AM Scheduled Provider:Bandar ROGERS MD Location:[facility] Appointment Type:URO Office Visit Future Scheduled Tests Radiology* US Prostate, [facility] 02/24/24 [facility] Evaluation + Plan note Future Appointments Appointment Date:04/23/2024 09:15:00 AM Scheduled Provider:Bandar ROGERS MD Location:[facility] Appointment Type:URO Office Visit Diagnostic Tests Pending * Prostate Histology ([facility]) 04/07/24 Future Scheduled Tests Radiology* US Prostate, [facility] Coronary arteriosclerosis- Primary Coronary atherosclerosis of unspecified type of vessel, [place] or graft documented in this encounter [facility]* Diagnosis Coronary arteriosclerosis Coronary atherosclerosis of unspecified type of vessel, [place] or graft [facility]* Diagnosis Hypertension, unspecified type- Primary Pre-operative cardiovascular exam, new EKG abnormalities c/w ischemia Pre-operative cardiovascular examination documented [facility]* Diagnosis Pre-operative cardiovascular exam, new EKG abnormalities c/w ischemia Pre-operative cardiovascular examination documented in [facility]* Diagnosis Coronary arteriosclerosis Coronary atherosclerosis of unspecified type of vessel, [place] or graft [facility]* Diagnosis Coronary arteriosclerosis Coronary atherosclerosis of unspecified type of vessel, [place] or graft [facility]* Diagnosis Coronary arteriosclerosis Coronary atherosclerosis of unspecified type of vessel, [place] or graft [facility]* Diagnosis Coronary arteriosclerosis Coronary atherosclerosis of unspecified type of vessel, [place] or graft documented in this encounter [facility] noteNo assessment information availableGal[facility] Work Phone: Evaluzcdpj note* Diagnosis Hypertension, unspecified type- Primary 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) [facility] Diagnosis 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) [facility]* Diagnosis Acute bronchitis, unspecified organism- Primary Acute non-recurrent sinusitis, unspecified location Impaired fasting glucose [facility] Diagnosis [facility] at [facility]- Primary Routine general medical examination at [facility] Medicare annual wellness visit, subsequent Personal history of nicotine dependence 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) Panlobular emphysema (CMS/HCC) Other emphysema Atherosclerosis of aorta (CMS/HCC) Atherosclerosis of aorta Mixed hyperlipidemia (CMS/HCC) Mixed hyperlipidemia History of tobacco abuse Prostate cancer screening Special screening for malignant neoplasm of prostate Positive colorectal cancer screening using Cologuard test [facility] Diagnosis Pre-op exam- Primary Chronic ischemic heart disease Unspecified chronic ischemic heart disease Ascending aorta dilatation (CMS/HCC) Thoracic aneurysm without mention of rupture [facility]* Diagnosis Bilious vomiting with nausea- Primary Calculus of gallbladder with acute on chronic cholecystitis without obstruction [facility] Narrative No data available for this section [facility] Discharge instructions No data available for this section [facility] Additional Instructions DISCHARGE INSTRUCTIONS FOR COLONOSCOPY WHAT TO EXPECT: - You may feel full, gassy or cramping after your procedure. In some cases, this may be from a few hours to a day. Walking may help relieve the discomfort. - If you have polyp(s) removed you may note some minor bloody discharge after your first bowel movements. - You should begin to recover from anesthesia within 1 hour of the procedure, however may feel groggy for the next 24 hours. DO's AND DON'Ts: - Call your doctor right away if you have a hard abdomen, severe pain, are passing lots of bright red blood or clots. - Call your doctor if you develop any rashes, hives or difficulty breathing. - Let your doctor know if you have not had a bowel movement by 3 days after your procedure. - If you take 81 mg aspirin for your heart it is safe to resume this medication. - If you take other blood thinner medications your doctor will instruct you when these can safely be resumed. - Do NOT drive for 24 hours. - Do NOT operate machinery such as power tools, lawn mowers, snow blowers, sewing machines, etc. for 24 hours. - Avoid alcoholic beverages and drugs for allergies, nerves, or sleep. - Do NOT stay alone. Do NOT leave your child unattended. - Do NOT make important personal or business decisions or sign any legal documents. - Eat solid foods and drink liquids in smaller amounts than usual until normal appetite returns. If you should experience an upset stomach, liquids high in sugar content (soda, Jude-Aid, non-acid juices) are recommended. - You can resume normal activities tomorrow. FOLLOW UP & RECOMMENDATIONS: -Notify the doctor if you have any problems. -Repeat colonoscopy in 3 years. -Follow up with PCP. -Office number [phone]. [facility] Work Phone: Progress note No data available for this section [facility] reason for referral (narrative)* Consultation (Routine) - Pending Review Specialty Diagnoses / Procedures Referred By Tania george Referred To Contact Gastroenterology Diagnoses Positive colorectal cancer screening using Cologuard test Procedures IN OFFICE/OUTPATIENT NEW HIGH MDM 60 MINUTES Gary Yeh MD 112 [facility] 110 [place] [address] Td Berrios MD [address] [place] [address] [address] [place] [address] Referral ID Status Reason Start Date Expiration Date Visits Requested Visits Authorized [id number] Pending Review Specialty Services Required 06/07/2024 12/04/2024 1 1 * Imaging (Routine) - Pending Review Specialty Diagnoses / Procedures Referred By Tania george Referred To Contact Radiology Diagnoses Panlobular emphysema (CMS/HCC) History of tobacco abuse Procedures CT lung screening low dose Gary Yeh MD [address] [address] Referral ID Status Reason Start Date Expiration Date V isits Requested Visits Authorized [id number] Pending Review 06/07/2024 12/04/2024 1 1 [facility] Summary Purpose Family History No Family History Records Found Relationship Condition Age at Onset Recorded Date/T rea father Unknown Aortic aneurysm Unknown Diabetes mellitus Unknown Malignant neoplasm of prostate Unknown mother Heart disease Unknown Unknown Advance Directives No Advanced Directives Records Found Advance Directive Response Recorded Date/ Time Advance Directives No July 26, 2017 11:32am Reason for Referral Specialty Diagnoses / Procedures Referred By Tania t Referred To Contact Cardiology Diagnoses Pre-operative cardiovascular exam, new EKG abnormalities c/w ischemia Procedures Exercise nuclear stress test with myocardial perfusion IN MYOCARDIAL PERFUSION IMAGING TOMOGRAPHIC MULTI STUDIES AT REST OR STRESS IN MYOCARDIAL PERFUSION IMAGING TOMOGRAPHIC SINGLE STUDY AT REST OR STRESS IN CARDIOVASCULAR STRESS TEST GLOBAL IN CV TMST/BIKE MAX/SUBMAX CONTINUOUS ECG MON/PHARM STRESS SUPVSR ONLY IN CV TMST/BIKE CONT ECG MON/PHARM STRESS INTERP & REPORT ONLY IN TEST STRESS CARDIOVASCULAR TRACING ONLY Tom Harrison MD [address] [place] [id number] Referral ID Status Reason Start Date Expiration Date V isits Requested Visits Authorized [id number] Authorized 05/27/2022 11/23/2022 3 3 Specialty Diagnoses / Procedures Referred By Contac t Referred To Contact Cardiology Diagnoses Pre-operative cardiovascular exam, new EKG abnormalities c/w ischemia Procedures Transthoracic echocardiogram (TTE) complete with PRN contrast, bubble, strain, and 3D order panel IN TTE W 2D IMAGE COMPLETE W DOPPLER ECHO & COLOR FLOW DOPPLER ECHO IN VIRY 2D COMPLETE W/CONTRAST OR W/O & W/CONTRAST WITH DOPPLER Tom Harrison MD [address] [place] [address] [address] [place] [address] [facility] [place] Referral ID Status Reason Start Date Expiration Date V isits Requested Visits Authorized [id number] Authorized 05/27/2022 11/23/2022 1 1 Specialty Diagnoses / Procedures Referred By Contac t Referred To Contact Radiology Diagnoses 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) Procedures CT Chest wo and w Contrast Tom Harrison MD [address] [place] [address] [address] [place] [address] [facility] Referral ID Status Reason Start Date Expiration Date V isits Requested Visits Authorized [id number] Authorized 01/02/2024 01/01/2025 1 1 Specialty Diagnoses / Procedures Referred By Contac t Referred To Contact Radiology Diagnoses 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) Procedures CT Angio Chest wo and/or w Contrast CT Chest w Contrast Tom Harrison MD [address] [place] [address] [address] [place] [address] [facility] Referral ID Status Reason Start Date Expiration Date V isits Requested Visits Authorized [id number] Authorized 01/02/2024 1 1 Chief Complaint and Reason for Visit Chief Complaint R11.14 Chief Complaint positive cologuard positive cologuard Additional Source Comments (unrecognized sect ion and content) No Status Records FoundNo Status Records FoundNo Status Records FoundNo Status Records FoundNo Status Records FoundNo Status Records FoundNo Status Records FoundNo Status Records FoundNo Status Records Found INFORMATION SOURCE (unrecogn ized section and content) DATE CREATED AUTHOR 09/04/2019 [facility] DATE CREATED AUTHOR AUTHOR'S ORGANIZ ATION 12/26/2021 [facility] DATE CREATED AUTHOR AUTHOR'S ORGANIZ ATION 02/05/2022 [facility] dical Specialist DATE CREATED AUTHOR AUTHOR'S ORGANIZ ATION 01/30/2024 [facility] DATE CREATED AUTHOR AUTHOR'S ORGANIZ ATION 04/29/2024 [facility] DATE CREATED AUTHOR AUTHOR'S ORGANIZ ATION 07/23/2024 [facility] DATE CREATED AUTHOR AUTHOR'S ORGANIZ ATION 10/28/2024 [facility] DATE CREATED AUTHOR AUTHOR'S ORGANIZ ATION 11/11/2024 [facility] DATE CREATED AUTHOR AUTHOR'S ORGANIZ ATION 01/20/2025 [facility] dical Specialists [facility] Reason for Visit (unrecogniz ed section and content) Reason Onset Date Comments Med Refill 09/13/2021 Reason Onset Date Comments Med Refill 04/11/2022 Reason Comments Follow-up Cardiac clearance Specialty Diagnoses / Procedures Referred By Contac t Referred To Contact Cardiology Diagnoses Pre-operative cardiovascular exam, new EKG abnormalities c/w ischemia Procedures Transthoracic echocardiogram (TTE) complete with PRN contrast, bubble, strain, and 3D order panel IN TTE W 2D IMAGE COMPLETE W DOPPLER ECHO & COLOR FLOW DOPPLER ECHO IN VIRY 2D COMPLETE W/CONTRAST OR W/O & W/CONTRAST WITH DOPPLER Tom Harrison MD [address] [place] [address] [facility] [place] Referral ID Status Reason Start Date Expiration Date V isits Requested Visits Authorized [id number] Authorized 05/27/2022 11/23/2022 1 1 Specialty Diagnoses / Procedures Referred By Contac t Referred To Contact Cardiology Diagnoses Pre-operative cardiovascular exam, new EKG abnormalities c/w ischemia Procedures Exercise nuclear stress test with myocardial perfusion IN MYOCARDIAL PERFUSION IMAGING TOMOGRAPHIC MULTI STUDIES AT REST OR STRESS IN MYOCARDIAL PERFUSION IMAGING TOMOGRAPHIC SINGLE STUDY AT REST OR STRESS IN CARDIOVASCULAR STRESS TEST GLOBAL IN CV TMST/BIKE MAX/SUBMAX CONTINUOUS ECG MON/PHARM STRESS SUPVSR ONLY IN CV TMST/BIKE CONT ECG MON/PHARM STRESS INTERP & REPORT ONLY IN TEST STRESS CARDIOVASCULAR TRACING ONLY Tom Harrison MD [address] [address] Referral ID Status Reason Start Date Expiration Date V isits Requested Visits Authorized [id number] Authorized 05/27/2022 11/23/2022 3 3 Reason Comments [...] CT Chest w Contrast Tom Harrison MD [address] [facility] [address] [place] [address] [facility] [place] Referral ID Status Reason Start Date Expiration Date V isits Requested Visits Authorized [id number] Authorized 01/02/2024 1 1 Reason Onset Date Comments Levofloxacin 04/13/2024 Reason Comments Sinusitis Reason Onset Date Comments cardiac clearance for cystoscopy/TURP on 10/28/24 4 10/05/2024 Reason Comments Pre-op Exam Pt needs clearance f or prostate surgery on 10/28/24. Reason Onset Date Comments cardiac clearance 10/25/2024 Reason Comments Follow-up GB Specialty Diagnoses / Procedures Referred By Tania t Referred To Contact General Surgery Diagnoses Calculus of gallbladder with acute on chronic cholecystitis without obstruction Procedures IN OFFICE/OUTPATIENT [facility] 60 MINUTES Gary Yeh MD [address] [facility] 110 [place] [address] Phone: tel: fax: Luis Summers, [address] [facility] [address] [place] [address] Phone: tel: fax: Referral ID Status Reason Start Date Expiration Date V isits Requested Visits Authorized [id number] Closed Specialty Services Required 12/13/2024 06/11/2025 1 1 Ordered Prescriptions (unrec ognized section and content) [...] Care Teams (unrecognized sec tion and content) Admitting Manager Relationship Specialty Start Date End Date Gary Yeh MD [address] [facility] 110 [place] [address] PCP - General Internal Medicine 05/27/22 Admitting Manager Relationship Specialty Start Date End Date Gary Yeh MD [address] [facility] [address] [place] [address] PCP - General Internal Medicine 05/27/22 Admitting Manager Relationship Specialty Start Date End Date Gary Yeh MD 112 [facility] [address] [place] [address] PCP - General Internal Medicine 05/27/22 Admitting Manager Relationship Specialty Start Date End Date Gary Yeh MD [address] [place] [address] PCP - General Internal Medicine 05/27/22 Admitting Manager Relationship Specialty Start Date End Date Gary Yeh MD [address] [place] [address] PCP - General Internal Medicine 05/27/22 Admitting Manager Relationship Specialty Start Date End Date Gary Yeh MD [address] [place] [address] PCP - General Internal Medicine 05/27/22 Admitting Manager Relationship Specialty Start Date End Date Gary Yeh MD [address] [place] [address] PCP - General Internal Medicine 05/27/22 Team Status: Active Member Role Status Dates Gary Yeh II MD Primary Care Provider Active Team Status: Inactive Member Role Status Dates Luis Summers DO Attending Provider Active Gary Yeh II MD Primary Care Provider Active Admitting Manager Relationship Specialty Start Date End Date Gary Yeh MD [address] [facility] [address] [place] [address] PCP - General Internal Medicine 05/27/22 Admitting Manager Relationship Specialty Start Date End Date Gary Yeh MD [address] [facility] [address] [place] [address] PCP - General Internal Medicine 05/27/22 Admitting Manager Relationship Specialty Start Date End Date Gary Yeh MD [address] [place] [address] PCP - General Internal Medicine 05/27/22 Team Status: Inactive Member Role Status Dates Gary Yeh II MD Primary Care Provider Active Start: July 12, 2024 End: July 12, 2024 Alistair Yañez MD Attending Provider Active Start: July 12, 2024 End: July 12, 2024 Team Status: Active Member Role Status Dates Gary Yeh II MD Primary Care Provider Active Start: July 12, 2024 Alistair Yañez MD Attending Provider, Other Provider Active Start: July 12, 2024 Admitting Manager Relationship Specialty Start Date End Date Gary Yeh MD [address] [place] [address] PCP - ACO Reach 03/06/23 Gary Yeh MD [address] [place] [address] PCP - General Internal Medicine 02/18/23 Admitting Manager Relationship Specialty Start Date End Date Gary Yeh MD [address] [place] [address] PCP - ACO Reach 03/06/23 Gary Yeh MD [address] [place] [address] PCP - General Internal Medicine 02/18/23 Admitting Manager Relationship Specialty Start Date End Date Gary Yeh MD [address] [place] [address] PCP - ACO Reach 03/06/23 Gary Yeh MD [address] [place] [address] PCP - General Internal Medicine 02/18/23 Admitting Manager Relationship Specialty Start Date End Date Gary Yeh MD [address] [place] [address] PCP - ACO Reach 03/06/23 Gary Yeh MD [address] [place] [address] PCP - General Internal Medicine 02/18/23 Admitting Manager Relationship Specialty Start Date End Date Gary Yeh MD [address] [place] [address] PCP - ACO Reach 03/06/23 Gary Yeh MD [address] [place] [address] PCP - General Internal Medicine 02/18/23 Admitting Manager Relationship Specialty Start Date End Date Gary Yeh MD [address] [place] [address] PCP - General Internal Medicine 05/27/22 Admitting Manager Relationship Specialty Start Date End Date Gary Yeh MD [address] [place] [address] PCP - General Internal Medicine 05/27/22 Admitting Manager Relationship Specialty Start Date End Date Gary Yeh MD [address] [place] [address] PCP - ACO Reach 03/06/23 Gary Yeh MD [address] [place] [address] PCP - General Internal Medicine 02/18/23 Goals (unrecognized section and content) Goals may [...] BE BASED ON THE PRIMARY CLINICAL RECORDS. [facility]. provides no warranty or guarantee of the accuracy or completeness of information in this document.
== END 2025-01-25 07:58 | disposition home or self-care (01) ==
LOC: US 07:57
PROVIDERS: PCP Internal Medicine; Visit Provider Surgery
DX: R11.14 Bilious vomiting (principal); K80.12 Calculus of gallbladder with acute and chronic cholecystitis without obstruction; K76.0 Fatty (change of) liver, not elsewhere classified
CPT/HCPCS: 76705

== ENCOUNTER 2025-02-15 08:05 | Outpatient (OUT) | payer MEDICARE, OTHER, SELFPAY ==
--- NOTE | 2025-02-15 08:07 | CT_ITS ---
The [address] [address] Patient Name: WILLI MCKOY MRN: [id number] date: 1955 Sex: M Assigned Patient Location: LAB Current Patient Location: LAB Accession/Order Number: [id number] Exam Date: 02/15/2025 11:18 Report Date: 02/15/2025 11:21 At the request of: GIA SUMMERS Procedure: CT abdomen w con CT ABDOMEN WITH INTRAVENOUS CONTRAST: CLINICAL HISTORY: Bilious Vomiting With Nausea, Calculus Of Gallbladder COMPARISON: None TECHNIQUE: Spiral images were obtained through the abdomen following the administration of intravenous contrast. This CT exam was performed using one or more following dose reduction techniques: Automated exposure control, adjustment of the mA and/or kV according to patient size, or use of iterative reconstruction technique. FINDINGS: Lung Bases: No acute process. Minimal scarring. Organs: Cholelithiasis. Subcentimeter low attenuating lesions are seen within the liver too small fracture characterization. No CBD dilatation. Portal vein pancreas spleen all appear unremarkable. There is mild thickening involving the adrenal glands. Kidneys demonstrate no stone or hydronephrosis. Aorta appears normal in caliber. GI: Stomach is grossly unremarkable. Visualized small bowel and colon demonstrate no acute process. Colonic diverticulosis. Peritoneum/Retroperitoneum:No free air or free fluid or lymphadenopathy. Abd wall/Bones: Abdominal wall demonstrates no acute findings. Osseous structures demonstrate degenerative change. CT/CT abdomen w con IMPRESSION: No acute process. Cholelithiasis. Colonic diverticulosis. Impression dictated by: Jono Wood Jr., DHennaOHenna 02/15/2025 11:21 AM Dictation Location: [email or web address] Electronically authenticated by: [id number] Y Date: 02/15/2025 11:21
[2025-02-15 08:31] LABS: Estimated GFR (African America >60 (>=60 mL/min/1.73m^2); Estimated GFR (Non-African Ame >60 (>=60 mL/min/1.73m^2)
== END 2025-02-15 08:06 | disposition home or self-care (01) ==
LOC: LAB 08:06
PROVIDERS: PCP Internal Medicine; Visit Provider Surgery
DX: R11.14 Bilious vomiting (principal); K80.12 Calculus of gallbladder with acute and chronic cholecystitis without obstruction; K83.8 Other specified diseases of biliary tract; K57.90 Diverticulosis of intestine, part unspecified, without perforation or abscess without bleeding
CPT/HCPCS: 36415; 74160; 82565; Q9967